=== PATIENT | male | born 1955 | race African-American/Black ===

== ENCOUNTER 2017-05-17 18:27 | Observation (INO) | payer OTHER ==
--- NOTE | 2017-05-17 19:16 | PDOC ---
History of Present Illness - History of Present Illness Initial Comments: 05/17/17 19:39 Patient is a 62M, with PMHx of HTN and gout, who presents with 2 weeks of left shoulder pain. He went to an urgent care for his shoulder pain, the urgent care sent him to the ER after finding him to be hypertensive and did not address his shoulder pain. Patient states that he fell straight down on his left shoulder, after stumbling on a floor board. This past Tuesday, he went to reach for a light switch, and noted that his shoulder pain had worsened. This morning he woke up with a throbbing pain in his left shoulder, rates 9/10. He also experienced a tingling sensation down his arm. He also noted associated nausea and sweating this morning which followed the pain. He denies chest pain. Admits to some SOB earlier in the day. MEDICATIONS: reviewed ALLERGIES: As per nursing notes ROS General: No fevers or chills, no weakness, no weight loss HEENT: No change in vision. No sore throat,. No ear pain CardioVascular: No chest pain. +shortness of breath Respiratory:No cough, or wheezing. Gastrointestinal: +nausea, no vomiting, diarrhea or constipation, No rectal bleeding Genitourinary: No dysuria, hematuria, or frequency Musculoskeletal: +right shoulder pain and tingling Neurologic: No headache, vertigo, dizziness or loss of consciousness Psychiatric: nor depression Skin: No rashes or easy bruising Endocrine: no increased thirst or abnormal weight change Allergic: no skin or latex allergy All other systems reviewed and normal Physical Exam: General: Well-nourished well-developed individual, no acute distress HEENT:Normal, tonsils normal, no erythema or exudate Neck: Supple, no meningeal signs, no lymphadenopathy Eyes:Pupils equal reactive and round, extraocular motion intact Chest: Nontender to palpation Cardiac: S1-S2 normal, regular rate and rhythm, no murmurs rubs or gallops Respiratory: Lungs clear to auscultation bilateral Abdomen: Soft, nondistended, normal bowel sounds, nontender to palpation diffusely Extremities: No bony tenderness, no deformity, no ecchymosis. Tenderness to palpation of anterior shoulder. Neurovascular distal is intact. Decreased ROM, particularly abduction, secondary to pain. Skin: No rashes Neuro: Alert and oriented x3, nonfocal exam, grossly intact, normal gait Psych: Normal mood and affect <Cynthia Richardson - Last Filed: 05/17/17 20:01> - General History Source: Patient Exam Limitations: No Limitations - History of Present Illness Initial Comments: 05/17/17 20:03 A portion of this note was documented by scribe services under my direction. I have reviewed the details of the note, within reason, and agree with the documentation. The case summary and management plan written by me. Medical decision making: This is a 62-year-old male who comes in with 2 complaints his primary complaint is left shoulder pain post fall and injuring the shoulder 2 days ago however in discussion with him regarding his shoulder pain and also came out that he had an episode this morning where he felt nauseous became diaphoretic and had some shortness of breath associated with what he attributed to his shoulder pain. However he does have a history of hypertension so an EKG was obtained. EKG shows normal sinus rhythm at a rate of 60 to a incomplete right bundle branch block some LVH and some flipped T's laterally consistent with lateral ischemia. It is uncertain whether these changes are old or new as we do not have an EKG to compare it to So given his symptoms early will assume they may be new and obtain a workup including CBC, comp, cardiac enzymes, chest x-ray. Patient given Toradol for his pain as well as aspirin Will reassess and review workup 05/17/17 21:03 Assessment and plan: This is a 62-year-old male who comes in with 2 complaints one was that he had an episode of shortness of breath shoulder pain and some nausea and diaphoresis this morning The other complaint was that he fell 2 days ago and has had ongoing shoulder pain. Patient's history was concerning for the shortness of breath shoulder pain nausea and diaphoresis this morning so a workup was initiated. Patient's EKG was normal with some ischemic changes. Patient's troponin was measurable at 0.04 and his heart score is 5. Patient's x-ray was otherwise positive for left shoulder Hill-Sachs type deformity/compression fracture of the humeral head. Patient was given pain medication for that and a sling. Patient's chest x-ray showed no acute pathology. Patient will be admitted to a observation telemetry bed to rule him out. 05/17/17 21:49 Reevaluation the patient as he is complaining of an ALLERGIC reaction with some itching to his mouth and swelling of his lower lip and eye. Patient's lungs are clear at this time there is no angioedema of the oropharynx however he does have some mild lower lip swelling and right periorbital edema. Will medicate with Benadryl and Decadron. Will continue to observe and monitor. <Reji Gauthier I - Last Filed: 05/17/17 21:50> - General Chief Complaint: Blood Pressure Problem Stated Complaint: HYPERTENSION Time Seen by Provider: 05/17/17 19:15 Past History <Cynthia Richardson - Last Filed: 05/17/17 20:01> - Past Medical History COPD: No HTN: Yes - Suicide/Smoking/Psychosocial Hx Smoking History: Never smoked Information on smoking cessation initiated: No Hx Alcohol Use: Yes (SOCIAL) Drug/Substance Use Hx: No Substance Use Type: Alcohol <Reji Gauthier I - Last Filed: 05/17/17 21:50> - Past Medical History Allergies/Adverse Reactions: Allergies Allergy/AdvReac Type Severity Reaction Status Date / Time No Known Allergies Allergy Verified 05/17/17 18:29 Review of Systems - Review of Systems Comments:: 05/17/17 20:01 see HPI <Cynthia Richardson - Last Filed: 05/17/17 20:01> *Physical Exam - Vital Signs Last Vital Signs Temp Pulse Resp BP Pulse Ox 98.3 F 72 16 168/97 100 05/17/17 18:29 05/17/17 18:29 05/17/17 18:29 05/17/17 18:29 05/17/17 18:29 - Physical Exam Comments: 05/17/17 20:01 see HPI <Cynthia Richardson - Last Filed: 05/17/17 20:01> - Vital Signs Last Vital Signs Temp Pulse Resp BP Pulse Ox 98.3 F 72 16 168/97 100 05/17/17 18:29 05/17/17 18:29 05/17/17 18:29 05/17/17 18:29 05/17/17 18:29 <Reji Gauthier I - Last Filed: 05/17/17 21:50> Heart Score/ECG Review - History History: Moderately suspicious - Electrocardiogram EKG: Significant ST-depression - Age Age: 45-65 - Risk Factors Risk Factors Heart Score: Yes Hx Hypertension, Yes Hx Obesity Based on the list above the patient has:: 1-2 risk factors - Troponin Troponin: </= normal limit - Score Heart Score - Total: 5 <Reji Gauthier I - Last Filed: 05/17/17 21:50> ED Treatment Course - Medications Given in the ED: ED Medications Discontinued Medications Generic Name Dose Route Start Last Admin Trade Name Gonzalo PRN Reason Stop Dose Admin Ketorolac Tromethamine 60 mg 05/17/17 19:21 05/17/17 19:27 Toradol Injection - IM 05/17/17 19:22 60 mg ONCE ONE Administration <Cynthia Richardson - Last Filed: 05/17/17 20:01> - LABORATORY CBC & Chemistry Diagram: 05/17/17 20:01 05/17/17 20:01 <Reji Gauthier I - Last Filed: 05/17/17 21:50> *DC/Admit/Observation/Transfer - Attestations Scribe Attestion: 05/17/17 20:01 Documentation prepared by Cynthia Richardson, acting as medical instrument technician for Reji Gauthier MD. <Cynthia Richardson - Last Filed: 05/17/17 20:01> - Discharge Dispostion Admit: Yes <Reji Gauthier I - Last Filed: 05/17/17 21:50> Diagnosis at time of Disposition: Hill-Sachs lesion of left shoulder, Chest pain - Discharge Dispostion Condition at time of disposition: Stable
[2017-05-17] MEDS ORDERED: KETOROLAC TROMETHAMINE 60 MG/2 ML VIAL IM ONE (19:21)
[2017-05-17] MEDS ORDERED: KETOROLAC TROMETHAMINE 60 MG/2 ML VIAL ONE (19:26)
[2017-05-17] MEDS ORDERED: ASPIRIN 81 MG CHEWABLE TABLETS PO ONE (20:01)
[2017-05-17] MEDS ORDERED: ASPIRIN 81 MG CHEWABLE TABLETS ONE (20:04)
[2017-05-17 20:13] LABS: BASO % 3.6 % (0-2.0); EOS % 0.1 % (0-4.5); HEMATOCRIT 42.7 % (35.4-49); HEMOGLOBIN 14.4 GM/dl (11.7-16.9); LYMPH % 14.9 % (8-40); MCH 25.5 pg (25.7-33.7); MCHC 33.6 g/dl (32.0-35.9); MEAN CELL VOLUME 75.8 fl (80-96); MONO % 9.5 % (3.8-10.2); NEUT % 71.9 % (42.8-82.8); PLATELET COUNT 244 K/MM3 (134-434); RBC 5.63 M/mm3 (4.00-5.60); RDW 13.8 % (11.9-15.9); WHITE BLOOD COUNT 9.6 K/mm3 (4.0-10.8)
[2017-05-17 20:26] LABS: ALBUMIN 3.4 g/dl (3.5-5.0); ALK PHOS 70 U/L (32-92); ANION GAP 1 (8-16); BILIRUBIN,TOTAL 1.7 mg/dl (0.2-1.0); BLOOD UREA NITROGEN 17 mg/dl (7-18); CALCIUM 8.5 mg/dl (8.4-10.2); CHLORIDE 103 mmol/L (98-107); CO2 32 mmol/L (22-28); CREATININE 1.5 mg/dl (0.6-1.3); GLUCOSE,RANDOM 117 mg/dl (74-106); POTASSIUM 3.7 mmol/L (3.5-5.1); SGOT/AST 35 U/L (10-42); SGPT/ALT 20 U/L (10-40); SODIUM 136 mmol/L (136-145); TOT PROT 7.8 g/dl (6.4-8.3)
[2017-05-17] MEDS ORDERED: DEXAMETHASONE SOD PHOSPHATE 10 MG/1 ML VIAL IVPUSH ONE (21:49)
[2017-05-17] MEDS ORDERED: DEXAMETHASONE SOD PHOSPHATE 10 MG/1 ML VIAL ONE (21:58)
[2017-05-17 23:45] VITALS: BMI 39.1
[2017-05-18] MEDS ORDERED: ACETAMINOPHEN 325 MG TABLET (FP) PO PRN (00:14)
--- NOTE | 2017-05-18 00:16 | HP ---
CHIEF COMPLAINT: shoulder pain/HTN PCP: Pablo HISTORY OF PRESENT ILLNESS: This is a 62 year old male with past medical history of HTN, gout, prostate CA who presented to the ED with Left shoulder pain for 1.5 weeks since falling last 2 Fridays ago. On Tuesday he reached up to turn on light and felt excrutiating pain. Pain has been severe and persistent since then with worsening this am. This am he had an episode of pain when he became diaphoretic , nauseas and SOB. He presented to urgent care for the pain and they sent him here as his BP was elevated. Pt had possible allergic reaction to ASA vs toradol in ED, tx with benadryl and dexamethasone. ER course was notable for: (1) trop 0.04, CK 470, CK-MB 4.7 (2) shoulder xray with possible compression deformity (3) ECG with flipped Twaves laterally and incomplete RBBB Recent Travel: [place] in April PAST MEDICAL HISTORY: HTN, gout, prostate CA, lumbar disc herniation x 4, LE cellulitis, venous insufficiency s/p vein stripping PAST SURGICAL HISTORY: prostatectomy B/L TKR B/L THR Social History: Smoking: pt denies Alcohol: occ (birthdays and holidays) Drugs: pt denies Family History: mother in her 50s or 60s, cervical CA, h/o ETOH father in his 60s, unk 1 brother s/p prostate CA, prostatectomy sister in her 50s, cervical CA Allergies ketorolac [From Toradol] Allergy (Intermediate, Verified 05/17/17 22:09) Itching HOME MEDICATIONS: allopurinol 200mg daily atenolol 25mg daily nifedipine ER 60mg daily REVIEW OF SYSTEMS CONSTITUTIONAL: Absent: fever, chills, diaphoresis, generalized weakness, malaise, loss of appetite, weight change HEENT: Absent: rhinorrhea, nasal congestion, throat pain, throat swelling, difficulty swallowing, mouth swelling, ear pain, eye pain, visual changes CARDIOVASCULAR: Absent: chest pain, syncope, palpitations, irregular heart rate, lightheadedness , peripheral edema RESPIRATORY: Absent: cough, shortness of breath, dyspnea with exertion, orthopnea, wheezing, stridor, hemoptysis GASTROINTESTINAL: Absent: abdominal pain, abdominal distension, nausea, vomiting, diarrhea, constipation, melena, hematochezia GENITOURINARY: Absent: dysuria, frequency, urgency, hesitancy, hematuria, flank pain, genital pain MUSCULOSKELETAL: Present: L shoulder pain Absent: myalgia, arthralgia, joint swelling, back pain, neck pain SKIN: Absent: rash, itching, pallor HEMATOLOGIC/IMMUNOLOGIC: Absent: easy bleeding, easy bruising, lymphadenopathy, frequent infections ENDOCRINE: Absent: unexplained weight gain, unexplained weight loss, heat intolerance, cold intolerance NEUROLOGIC: Absent: headache, focal weakness or paresthesias, dizziness, unsteady gait, seizure, mental status changes, bladder or bowel incontinence PSYCHIATRIC: Absent: anxiety, depression, suicidal or homicidal ideation, hallucinations. PHYSICAL EXAMINATION Vital Signs - 24 hr 3 05/17/17 05/17/17 05/17/17 18:29 20:11 21:40 Temperature 98.3 F 98.4 F Pulse Rate 72 Pulse Rate [ 69 Right Radial] Respiratory 16 20 Rate Blood Pressure 168/97 Blood Pressure 157/86 [Right Arm] O2 Sat by Pulse 100 98 96 Oximetry (%) 3 05/17/17 05/17/17 05/17/17 21:46 22:26 23:50 Temperature 98.4 F Pulse Rate 70 Pulse Rate [ 80 Right Radial] Respiratory 20 20 Rate Blood Pressure 170/77 Blood Pressure 169/79 [Right Arm] O2 Sat by Pulse 96 96 Oximetry (%) GENERAL: Awake, alert, and fully oriented, in no acute distress. HEAD: Normal with no signs of trauma. EYES: Pupils equal, round and reactive to light, extraocular movements intact, sclera anicteric, conjunctiva clear. No lid lag. upper eyelids noted with mild swelling L>R, left lower lip still with mild swelling. EARS, NOSE, THROAT: Ears normal, nares patent, oropharynx clear without exudates. Moist mucous membranes. NECK: Normal range of motion, supple without lymphadenopathy, JVD, or masses. LUNGS: Breath sounds equal, clear to auscultation bilaterally. No wheezes, and no crackles. No accessory muscle use. HEART: Regular rate and rhythm, normal S1 and S2 without murmur, rub or gallop. ABDOMEN: Soft, nontender, not distended, normoactive bowel sounds, no guarding, no rebound, no masses. No hepatomegaly or splenomegaly. MUSCULOSKELETAL: Normal range of motion at all joints except L shoulder. No bony deformities or tenderness. No CVA tenderness. tenderness left shoulder on palp and ROM UPPER EXTREMITIES: 2+ pulses, warm, well-perfused. No cyanosis. No clubbing. No peripheral edema. LOWER EXTREMITIES: 2+ pulses, warm, well-perfused. No calf tenderness. 1+ peripheral edema bilat, scarring to L lower leg NEUROLOGICAL: Cranial nerves II-XII intact. Normal speech. gait not observed. PSYCHIATRIC: Cooperative. Good eye contact. Appropriate mood and affect. SKIN: Warm, dry, normal turgor, no rashes or lesions noted, normal capillary refill. Laboratory Results - last 24 hr 3 05/17/17 05/17/17 05/17/17 20:01 20:01 20:01 WBC 9.6 D RBC 5.63 H Hgb 14.4 Hct 42.7 MCV 75.8 L MCH 25.5 L MCHC 33.6 RDW 13.8 Plt Count 244 MPV 9.0 D Neutrophils % 71.9 Lymphocytes % 14.9 D Monocytes % 9.5 Eosinophils % 0.1 D Basophils % 3.6 H D Sodium 136 Potassium 3.7 Chloride 103 Carbon Dioxide 32 H Anion Gap 1 L BUN 17 Creatinine 1.5 H Creat Clearance w eGFR 47.27 Random Glucose 117 H D Calcium 8.5 Total Bilirubin 1.7 H D AST 35 D ALT 20 D Alkaline Phosphatase 70 Creatine Kinase 470 H Creatine Kinase Index 1.0 CK-MB (CK-2) 4.7 H Troponin I 0.04 Total Protein 7.8 Albumin 3.4 L ECG normal sinus rhythm vent rate 62, QTC 458 incomplete RBBB LVH T wave inversions lead 1, V5, V6 no old ecg available for comparison Radiology Reports Chest xray-portable- official read pending. no obvious infiltrates, effusions L Shoulder xray- official read pending. As read by ED MD: Hill-Sachs type deformity/compression fracture of the humeral head ASSESSMENT/PLAN: 62yM with PMH HTN, gout, prostate CA, lumbar disc herniation x 4, LE cellulitis , venous insufficiency s/p vein stripping presented to the ED with L shoulder pain. L shoulder pain - ortho consult, Pt orthopedist does not come here - sling to left shoulder when OOB - tylenol for pain ? chest pain equivalent (SOB, diaphoresis) - likely pain response - given ECG changes and no old ecg availabe for comparison will admit overnight for observation - trend troponin HTN - cont home meds, increase dose if persistently elevated when pain controlled gout - cont allopurinol DVT PPX - deferred, anticipated LOS < 48h FEN - tolerating po - BMP in am - low sodium, low fat diet Dispo: pt currently requires further observation. Visit type - Emergency Visit Emergency Visit: Yes ED Registration Date: 05/17/17 Care time: The patient presented to the Emergency Department on the above date and was hospitalized for further evaluation of their emergent condition. - New Patient This patient is new to me today: Yes Date on this admission: 05/17/17 - Critical Care Critical Care patient: No Hospitalist Screening - Colonoscopy Questionnaire Colonoscopy Questionnaire: Colonoscopy Questionnaire - Patient: 50 - 75 years old and never had a screening colonoscopy: No History of colon or rectal polyps, or CA: No History of IBD, Crohn's disease or UC: No History of abdominal radiation therapy as a child: No - Relative: 1 with colon or rectal CA, or polyps at age 60 or younger: No Colon or rectal CA diagnosed at age 45 or younger: No Multiple relatives with colon or rectal CA: No - Outcome: Screening Result: Negative Screen
[2017-05-18 09:02] LABS: MEAN PLT VOLUME 9.5 fl (7.5-11.1)
[2017-05-18 09:18] LABS: HEMATOCRIT 40.3 % (35.4-49); HEMOGLOBIN 13.3 GM/dl (11.7-16.9); MCHC 33.1 g/dl (32.0-35.9); MEAN CELL VOLUME 75.6 fl (80-96); MONO % 5.1 % (3.8-10.2); NEUT % 87.9 % (42.8-82.8); PLATELET COUNT 252 K/MM3 (134-434); RBC 5.33 M/mm3 (4.00-5.60); RDW 13.7 % (11.9-15.9)
[2017-05-18 09:54] LABS: ANION GAP 7 (8-16); BLOOD UREA NITROGEN 22 mg/dL (7-18); CALCIUM 8.5 mg/dL (8.5-10.1); CHLORIDE 103 mmol/L (98-107); CO2 30 mmol/L (21-32); GLUCOSE,RANDOM 145 mg/dL (74-106); POTASSIUM 3.4 mmol/L (3.5-5.1); SODIUM 140 mmol/L (136-145)
[2017-05-18 09:59] LABS: CREATININE 1.7 mg/dL (0.7-1.3); MAGNESIUM 1.8 mg/dL (1.8-2.4); PHOSPHOROUS 2.5 mg/dL (2.5-4.9)
[2017-05-18] MEDS ORDERED: ATENOLOL 25 MG TABLET (FP) PO SCH (10:00)
[2017-05-18] MEDS ORDERED: ALLOPURINOL 100 MG TABLET (FP) PO SCH (10:00)
[2017-05-18] MEDS ORDERED: NIFEdipine E.R 60 MG TABLET (UD) PO SCH (10:00)
--- NOTE | 2017-05-18 10:10 | CONSULT ---
Consult Consult Specialty:: orthopedics - History of Present Illness Chief Complaint: left shoulder pain History of Present Illness: 62y/o male c/o left shoulder pain which began about 2 weeks ago after he fell and landed directly on the left shoulder. He has some mild pain but was able to use the shoulder normally. Over the past week he has had some increase in pain after he was doing so overhead work with the left shoulder. He continues to have pain with overhead movements and at night if he lies on the shoulder. He denies any numbness or tingling. There are no other associated, aggravating or relieving factors. - Alcohol/Substance Use Hx Alcohol Use: Yes (SOCIAL) - Smoking History Smoking history: Never smoked Have you smoked in the past 12 months: No Home Medications - Allergies Allergies/Adverse Reactions: Allergies Allergy/AdvReac Type Severity Reaction Status Date / Time ketorolac [From Toradol] Allergy Intermediate Itching Verified 05/17/17 22:09 Review of Systems - Review of Systems Constitutional: reports: No Symptoms Eyes: reports: No Symptoms HENT: reports: No Symptoms Neck: reports: No Symptoms Cardiovascular: reports: No Symptoms Respiratory: reports: No Symptoms Gastrointestinal: reports: No Symptoms Genitourinary: reports: No Symptoms, Testicular Pain Musculoskeletal: reports: Extremity Pain Integumentary: reports: No Symptoms Neurological: reports: No Symptoms Endocrine: reports: No Symptoms Hematology/Lymphatic: reports: No Symptoms Psychiatric: reports: No Symptoms Physical Exam Vital Signs: Vital Signs Temperature 98.7 F 05/18/17 06:48 Pulse Rate 69 05/18/17 06:48 Respiratory Rate 18 05/18/17 08:35 Blood Pressure 152/83 05/18/17 06:48 O2 Sat by Pulse Oximetry (%) 97 05/18/17 08:35 Constitutional: Yes: Well Nourished, No Distress, Calm HENT: Yes: Atraumatic, Normocephalic Musculoskeletal: Yes: Other Labs: CBC, BMP 05/18/17 07:55 05/18/17 07:55 Imaging - Results X-ray: Report Reviewed, Image Reviewed (No fracture of shoulder. No dislocation) Assessment/Plan #1 Left shoulder sprain/impingement -Recommend course of NSAIDs such as naproxen 500mg BID for 7-10 days. Pt states he tolerates NSAIDs well. -Also recommend outpatient PT for left shoulder -Follow up as outpatient in 1-2 weeks
--- NOTE | 2017-05-18 10:55 | EKG ---
Test Reason : Blood Pressure : / mmHG Vent. Rate : 062 BPM Atrial Rate : 062 BPM P-R Int : 202 ms QRS Dur : 114 ms QT Int : 452 ms P-R-T Axes : 055 -19 119 degrees QTc Int : 458 ms NORMAL SINUS RHYTHM POSSIBLE LEFT ATRIAL ENLARGEMENT INCOMPLETE RIGHT BUNDLE BRANCH BLOCK LEFT VENTRICULAR HYPERTROPHY CANNOT RULE OUT SEPTAL INFARCT , AGE UNDETERMINED T WAVE ABNORMALITY, CONSIDER LATERAL ISCHEMIA ABNORMAL ECG NO PREVIOUS ECGS AVAILABLE Confirmed by YULIANA SEPULVEDA, LAZARUS ([id number]) on 05/18/2017 10:54:54 AM Referred By: DR CELIS Confirmed By:LAZARUS BRIDGES MD
[2017-05-18] MEDS ORDERED: MAGNESIUM SULF 50% (8.12 MEQ/2 ML-1 GM VIAL) IVPB ONE (11:23)
[2017-05-18] MEDS ORDERED: MAGNESIUM 1GM/D5W - 1 GM/100 ML IVPB IVPB ONE (11:45)
[2017-05-18] MEDS ORDERED: POTASSIUM CHLORIDE TABS 20 MEQ TABLET.ER (FP) PO ONE (11:51)
--- NOTE | 2017-05-18 11:54 | DS ---
Physical Exam: SUBJECTIVE: Patient seen and examined, denies any chest pain or shortness of breath, reports minimal pain to the left shoulder upon movement. OBJECTIVE: Patient is a 62y/o male with PMH HTN, gout, prostate CA, lumbar disc herniation x 4, LE cellulitis, venous insufficiency s/p vein stripping, reports left shoulder pain for 1.5 weeks since falling last 2 Fridays ago. On Tuesday he reached up to turn on light and felt excrutiating pain. Pain has been severe and persistent since then with worsening this am. This am he had an episode of pain when he became diaphoretic, nauseas and SOB. He presented to urgent care for the pain and they sent him here as his BP was elevated. Pt had possible allergic reaction to ASA vs toradol in ED, tx with benadryl and dexamethasone. ER course was notable for: (1) trop 0.04, CK 470, CK-MB 4.7 (2) shoulder xray with possible compression deformity (3) ECG with flipped Twaves laterally and incomplete RBBB Vital Signs Period Temp Pulse Resp BP Sys/Malik Pulse Ox Last 24 Hr 98.3 F-98.7 F 69-80 16-20 152-170/77-97 96-100 PHYSICAL EXAM GENERAL: The patient is awake, alert, and fully oriented, in no acute distress. HEAD: Normal with no signs of trauma. EYES: PERRL, extraocular movements intact, sclera anicteric, conjunctiva clear. ENT: Ears normal, nares patent, oropharynx clear without exudates, moist mucous membranes. NECK: Trachea midline, full range of motion, supple. LUNGS: Breath sounds equal, clear to auscultation bilaterally, no wheezes, no crackles, no accessory muscle use. HEART: Regular rate and rhythm, S1, S2 without murmur, rub or gallop. ABDOMEN: Soft, nontender, nondistended, normoactive bowel sounds, no guarding, no rebound, no hepatosplenomegaly, no masses. EXTREMITIES: 2+ pulses, warm, well-perfused, no edema. pain to the left anterior shoulder upon movement NEUROLOGICAL: Cranial nerves II through XII grossly intact. Normal speech, gait not observed. PSYCH: Normal mood, normal affect. SKIN: Warm, dry, normal turgor, no rashes or lesions noted. LABS Laboratory Results - last 24 hr 05/17/17 05/17/17 05/17/17 20:01 20:01 20:01 WBC 9.6 D RBC 5.63 H Hgb 14.4 Hct 42.7 MCV 75.8 L MCH 25.5 L MCHC 33.6 RDW 13.8 Plt Count 244 MPV 9.0 D Neutrophils % 71.9 Lymphocytes % 14.9 D Monocytes % 9.5 Eosinophils % 0.1 D Basophils % 3.6 H D Sodium 136 Potassium 3.7 Chloride 103 Carbon Dioxide 32 H Anion Gap 1 L BUN 17 Creatinine 1.5 H Creat Clearance w eGFR 47.27 Random Glucose 117 H D Calcium 8.5 Phosphorus Magnesium Total Bilirubin 1.7 H D AST 35 D ALT 20 D Alkaline Phosphatase 70 Creatine Kinase Creatine Kinase Index CK-MB (CK-2) Troponin I 0.04 Total Protein 7.8 Albumin 3.4 L 05/17/17 05/18/17 05/18/17 20:01 02:00 07:55 WBC 7.0 RBC 5.33 Hgb 13.3 Hct 40.3 MCV 75.6 L MCH 25.0 L MCHC 33.1 RDW 13.7 Plt Count 252 MPV 9.5 Neutrophils % 87.9 H D Lymphocytes % 7.0 L D Monocytes % 5.1 Eosinophils % 0.0 D Basophils % 0.0 Sodium Potassium Chloride Carbon Dioxide Anion Gap BUN Creatinine Creat Clearance w eGFR Random Glucose Calcium Phosphorus Magnesium Total Bilirubin AST ALT Alkaline Phosphatase Creatine Kinase 470 H 363 H Creatine Kinase Index 1.0 0.8 CK-MB (CK-2) 4.7 H 3.224 Troponin I 0.04 Total Protein Albumin 05/18/17 05/18/17 07:55 07:55 WBC RBC Hgb Hct MCV MCH MCHC RDW Plt Count MPV Neutrophils % Lymphocytes % Monocytes % Eosinophils % Basophils % Sodium 140 Potassium 3.4 L Chloride 103 Carbon Dioxide 30 Anion Gap 7 L BUN 22 H Creatinine 1.7 H Creat Clearance w eGFR Random Glucose 145 H Calcium 8.5 Phosphorus 2.5 Magnesium 1.8 Total Bilirubin AST ALT Alkaline Phosphatase Creatine Kinase 299 Creatine Kinase Index CK-MB (CK-2) Troponin I 0.03 Total Protein Albumin ECG normal sinus rhythm vent rate 62, QTC 458 incomplete RBBB LVH T wave inversions lead 1, V5, V6 no old ecg available for comparison Radiology Reports Chest xray-portable no acute pathology, no infiltrates or effusions L Shoulder xray- no acute pathology. HOSPITAL COURSE: Patient was admitted to observation from the emergency department for chest pain r/o acs. no events noted on telemetry, troponin x 3 wnl. patient reports pain is localized to left shoulder only that worsens upon movement. Patient has a past medical history of hypertension, b/p remained at goal with atenolol and procardia. orthopedist was consulted, patient will require outpatient follow up. PLAN - discharge home with follow up with Dr Shah within 1 week - follow up with the orthopedist within 2 weeks Date of Admission:05/17/17 Date of Discharge: 05/18/17 Minutes to complete discharge: 45 Discharge Summary Reason For Visit: HYPERTENSION Current Active Problems Chest pain (Acute) Hill-Sachs lesion of left shoulder (Acute) Condition: Stable - Instructions
[2017-05-18 13:29] VITALS: BP 118/65; PULSE 76; TEMP 98.1
[2017-05-18 13:49] LABS: LIPASE 78 U/L (73-393)
[2017-05-18 17:06] LABS: CHOLESTEROL 202 mg/dL (50-200); LDL CHOLESTEROL (ONLY SJRH) 127 mg/dL (5-100); TRIGLYCERIDES 51 mg/dL (35-160)
[2017-05-18 17:07] LABS: HDL CHOLESTEROL 65 mg/dL (40-60)
== END 2017-05-18 16:38 | disposition home or self-care (01) ==
LOC: FER 18:27 → FM/S 22:26
PROVIDERS: ADMIT Internal Medicine; ATTEND Nurse Practitioner Family
PROC: 3E0333Z Introduction of Anti-inflammatory into Peripheral Vein, Percutaneous Approach (ICD-10-PCS; principal; 2017-05-17)
PROC: 3E033GC Introduction of Other Therapeutic Substance into Peripheral Vein, Percutaneous Approach (ICD-10-PCS; 2017-05-17)
DX: M25.512 Pain in left shoulder (principal); R07.9 Chest pain, unspecified; M24.412 Recurrent dislocation, left shoulder; I10 Essential (primary) hypertension; R06.02 Shortness of breath; M10.9 Gout, unspecified; Z85.46 Personal history of malignant neoplasm of prostate
CPT/HCPCS: 36415; 71045-TC-FY; 73030-TC-LT-FY; 80048; 80053; 80061; 82550; 82553; 83690; 83721; 83735; 84100; 84484; 85025; 93005; 99285-25; G0378; J1100

== ENCOUNTER 2021-08-20 04:07 | Day surgery (SDC) | payer BC, OTHER ==
[2021-08-17 15:08] VITALS: BMI 39.2
[2021-08-20] MEDS ORDERED: LIDOCAINE HCL 1%, 10 MG/ML (20ML VIAL) ONE (08:55)
[2021-08-20] MEDS ORDERED: HEPARIN NA (PORCINE) 5,000 UNITS/ML 1ML VIAL ONE (08:55)
[2021-08-20] MEDS ORDERED: BUPIVACAINE HCL/PF 0.25% (2.5MG/ML) 10 ML VIAL ONE (09:00)
[2021-08-20] MEDS ORDERED: BUPIVACAINE HCL/PF 0.75% 10 ML VIAL ONE (09:01)
[2021-08-20] MEDS ORDERED: MIDAZOLAM HCL 2 MG/2 ML SINGLE DOSE VIAL ONE ×2 (09:05)
[2021-08-20] MEDS ORDERED: DEXMEDETOMIDINE HCL 200 MCG/2 ML IVPB ONE (09:37)
[2021-08-20] MEDS ORDERED: ceFAZolin SODIUM 1 GM VIAL IVPB ONE (09:56)
[2021-08-20] MEDS ORDERED: LIDOCAINE HCL 1%, 10 MG/ML (50 mL VIAL) INF ONE (09:59)
[2021-08-20] MEDS ORDERED: oxyCODONE HCL 5 MG TABLET PO PRN ×2 (14:00)
[2021-08-20] MEDS ORDERED: oxyCODONE HCL 5 MG TABLET ONE ×2 (14:05)
[2021-08-20 15:11] VITALS: TEMP 97.5
[2021-08-20 15:20] VITALS: BP 131/74; PULSE 64
== END 2021-08-20 14:50 | disposition home or self-care (01) ==
LOC: JASU-SURG 04:07
PROVIDERS: ATTEND Surgery Vascular Surgery
PROC: 031C0ZF Bypass Left Radial Artery to Lower Arm Vein, Open Approach (ICD-10-PCS; principal; 2021-08-20 10:00)
DX: I12.0 Hypertensive chronic kidney disease with stage 5 chronic kidney disease or end stage renal disease (principal); N18.6 End stage renal disease
CPT/HCPCS: 36415; 71045-TC-FY; 76000-TC-FY; 86704; 86705; 86803; 87340; 87517; 94760; J1644

== ENCOUNTER 2021-09-07 16:17 | Observation (INO) | payer BC, OTHER ==
[2021-09-07 20:17] LABS: CHLORIDE 107 mmol/L (98-107); SODIUM 143 mmol/L (136-145)
[2021-09-07 20:19] LABS: CALCIUM 8.8 mg/dL (8.5-10.1)
[2021-09-07 20:20] LABS: ALBUMIN 3.1 g/dl (3.4-5.0); ANION GAP 10 MMOL/L (8-16); BLOOD UREA NITROGEN 71.6 mg/dL (7-18); CO2 26 mmol/L (21-32); GLUCOSE,RANDOM 100 mg/dL (74-106)
[2021-09-07 20:23] LABS: SGOT/AST 12 U/L (15-37); SGPT/ALT 8 U/L (13-61)
[2021-09-07 20:25] LABS: BILIRUBIN,TOTAL 0.3 mg/dL (0.2-1)
[2021-09-07 20:26] LABS: ALK PHOS 80 U/L (45-117)
[2021-09-07 20:32] LABS: CREATININE 8.2 mg/dL (0.55-1.3)
[2021-09-07] MEDS ORDERED: HEPARIN NA (PORCINE) 5,000 UNITS/ML 1ML VIAL IVPUSH PRN ×2 (20:36)
[2021-09-07 20:39] LABS: BASO % 1.2 % (0-2.0); HEMATOCRIT 26.3 % (35.4-49); HEMOGLOBIN 8.6 GM/dL (11.7-16.9); LYMPH % 14.9 % (8-40); MCH 24.2 pg (25.7-33.7); MCHC 32.6 g/dl (32.0-35.9); MONO % 7.8 % (3.8-10.2); NEUT % 69.1 % (42.8-82.8); PLATELET COUNT 347 10^3/uL (134-434); RBC 3.55 M/mm3 (4.00-5.60); WHITE BLOOD COUNT 7.3 K/mm3 (4.0-10.0)
[2021-09-07] MEDS ORDERED: HEPARIN INFUSION - 25,000 UNITS/500 ML INFUS.BAG IVPB ONE (20:48)
[2021-09-07 21:08] LABS: INR 1.09 (0.83-1.09); PROTHROMBIN TIME (PATIENT) 12.6 SEC (9.7-13.0)
[2021-09-07 21:11] LABS: ACTIVATED PTT 33.1 SECONDS (25.2-36.5)
[2021-09-07] MEDS: HEPARIN SOD,PORK IN 0.45% NACL 25,000 UNITS/500 ML INFUS.BAG IVPB SCH (21:11)
[2021-09-08] MEDS ORDERED: ACETAMINOPHEN 1000 MG/100 ML BAG IVPB PRN (00:17)
[2021-09-08] MEDS ORDERED: hydrALAZINE HCL 20 MG/ML VIAL IVPUSH ONE ×2 (00:20→06:45)
[2021-09-08] MEDS ORDERED: hydrALAZINE HCL 20 MG/ML VIAL ONE (00:38)
[2021-09-08] MEDS: ALLOPURINOL 100 MG TABLET (FP) PO SCH ×2 (01:34→10:48)
[2021-09-08 07:18] LABS: INR 1.13 (0.83-1.09)
[2021-09-08 07:31] LABS: CHLORIDE 106 mmol/L (98-107); SODIUM 142 mmol/L (136-145)
[2021-09-08 07:39] LABS: ALBUMIN 2.9 g/dl (3.4-5.0); ANION GAP 11 MMOL/L (8-16); BLOOD UREA NITROGEN 66.5 mg/dL (7-18); CALCIUM 8.5 mg/dL (8.5-10.1); CO2 25 mmol/L (21-32); GLUCOSE,RANDOM 86 mg/dL (74-106); MAGNESIUM 2.2 mg/dL (1.8-2.4)
[2021-09-08 07:42] LABS: PHOSPHOROUS 5.4 mg/dL (2.5-4.9); SGOT/AST 13 U/L (15-37); SGPT/ALT 8 U/L (13-61)
[2021-09-08 07:43] LABS: BILIRUBIN,TOTAL 0.4 mg/dL (0.2-1); LDH 232 U/L (87-246)
[2021-09-08 07:44] LABS: TOT PROT 7.7 g/dl (6.4-8.2)
[2021-09-08 07:45] LABS: ALK PHOS 72 U/L (45-117)
[2021-09-08 07:46] LABS: CREATININE 8.1 mg/dL (0.55-1.3)
[2021-09-08] MEDS ORDERED: NIFEdipine E.R 60 MG TABLET PO SCH (10:00)
[2021-09-08 10:09] LABS: BASO % 1.3 % (0-2.0); EOS % 5.9 % (0-4.5); HEMATOCRIT 22.7 % (35.4-49); HEMOGLOBIN 7.4 GM/dL (11.7-16.9); LYMPH % 13.2 % (8-40); MCH 24.1 pg (25.7-33.7); MCHC 32.8 g/dl (32.0-35.9); MEAN CELL VOLUME 73.3 fl (80-96); MEAN PLT VOLUME 8.5 fl (7.5-11.1); MONO % 5.5 % (3.8-10.2); NEUT % 74.1 % (42.8-82.8); PLATELET COUNT 344 10^3/uL (134-434); RBC 3.09 M/mm3 (4.00-5.60); RDW 15.7 % (11.9-15.9); WHITE BLOOD COUNT 7.5 K/mm3 (4.0-10.0)
[2021-09-08] MEDS: TORSEMIDE 20 MG TABLET (FP) PO SCH (10:47)
[2021-09-08] MEDS: ATENOLOL 25 MG TABLET (FP) PO SCH (10:48)
[2021-09-08] MEDS: PANTOPRAZOLE SODIUM 40 MG VIAL IVPUSH SCH (10:48)
[2021-09-08] MEDS: NIFEdipine E.R. 90 MG TABLET PO SCH (10:50)
[2021-09-08 12:15] VITALS: BMI 37.5
[2021-09-08 12:39] LABS: EPI CELLS 6 /uL (0-25.1); HYALINE CASTS 0 /uL (0-3.1); PH,URINE 7.5 (5.0-8.0); URINE APPEARANCE CLEAR; URINE BACTERIA 11 /uL (0-1359); URINE BILIRUBIN NEGATIVE (NEGATIVE); URINE COLOR YELLOW; URINE GLUCOSE (UA) NEGATIVE (NEGATIVE); URINE KETONE NEGATIVE (NEGATIVE); URINE LEUK ESTERASE NEGATIVE (NEGATIVE); URINE NITRITE NEGATIVE (NEGATIVE); URINE PROTEIN 3+ (NEGATIVE); URINE RBC 5 /uL (0-23.9); URINE UROBILINOGEN 0.2 mg/dL (0.2-1.0); URINE WBC 18 /uL (0-25.8)
[2021-09-08] MEDS ORDERED: hydrALAZINE HCL 20 MG/ML VIAL IVPUSH PRN (14:46)
[2021-09-08] MEDS: amLODIPine BESYLATE 10 MG TABLET (FP) PO SCH (15:14)
[2021-09-08 23:49] VITALS: RESP 18
[2021-09-09] MEDS: HEPARIN SOD,PORK IN 0.45% NACL 25,000 UNITS/500 ML INFUS.BAG IVPB SCH (00:20)
[2021-09-09 08:10] LABS: HEMATOCRIT 22.8 % (35.4-49); HEMOGLOBIN 7.6 GM/dL (11.7-16.9); MCH 24.3 pg (25.7-33.7); MCHC 33.1 g/dl (32.0-35.9); MEAN CELL VOLUME 73.2 fl (80-96); MEAN PLT VOLUME 7.6 fl (7.5-11.1); PLATELET COUNT 305 10^3/uL (134-434); RBC 3.11 M/mm3 (4.00-5.60); RDW 15.8 % (11.9-15.9); WHITE BLOOD COUNT 6.1 K/mm3 (4.0-10.0)
[2021-09-09 08:32] LABS: CHLORIDE 105 mmol/L (98-107); SODIUM 140 mmol/L (136-145)
[2021-09-09 08:36] LABS: CALCIUM 8.2 mg/dL (8.5-10.1)
[2021-09-09 08:37] LABS: ANION GAP 12 MMOL/L (8-16); BLOOD UREA NITROGEN 63.7 mg/dL (7-18); CO2 24 mmol/L (21-32); GLUCOSE,RANDOM 92 mg/dL (74-106)
[2021-09-09 08:41] LABS: CREATININE 7.7 mg/dL (0.55-1.3)
[2021-09-09 09:22] VITALS: BP 154/94; PULSE 61; TEMP 98.5
[2021-09-09] MEDS: ALLOPURINOL 100 MG TABLET (FP) PO SCH (09:22)
[2021-09-09] MEDS: TORSEMIDE 20 MG TABLET (FP) PO SCH (09:22)
[2021-09-09] MEDS: amLODIPine BESYLATE 10 MG TABLET (FP) PO SCH (09:23)
[2021-09-09] MEDS: ATENOLOL 25 MG TABLET (FP) PO SCH (09:23)
[2021-09-09] MEDS: PANTOPRAZOLE SODIUM 40 MG VIAL IVPUSH SCH (09:23)
[2021-09-09] MEDS: NIFEdipine E.R. 90 MG TABLET PO SCH (09:23)
== END 2021-09-09 14:05 | disposition home or self-care (01) ==
LOC: JER 16:17 → INTOOBSV 22:27 → UNDOADMOB 22:27 → JERBED 22:27 → OBSVTOIN 09-08 00:10 → INTOOBSV 09-08 00:10 → J4S 09-08 06:02 → JERBED 09-08 06:02 → J4S 09-09 08:51 → JERBED 09-09 08:51
PROVIDERS: ADMIT Internal Medicine
PROC: 3E033GC Introduction of Other Therapeutic Substance into Peripheral Vein, Percutaneous Approach (ICD-10-PCS; principal; 2021-09-09)
DX: I12.0 Hypertensive chronic kidney disease with stage 5 chronic kidney disease or end stage renal disease (principal); N18.5 Chronic kidney disease, stage 5; Z99.2 Dependence on renal dialysis; M10.9 Gout, unspecified; C61 Malignant neoplasm of prostate; I82.C11 Acute embolism and thrombosis of right internal jugular vein; D50.9 Iron deficiency anemia, unspecified; G47.33 Obstructive sleep apnea (adult) (pediatric); E66.9 Obesity, unspecified; I44.7 Left bundle-branch block, unspecified; M51.26 Other intervertebral disc displacement, lumbar region; Z88.6 Allergy status to analgesic agent; Z96.643 Presence of artificial hip joint, bilateral; Z96.653 Presence of artificial knee joint, bilateral; Z29.8 Encounter for other specified prophylactic measures; Z95.828 Presence of other vascular implants and grafts
CPT/HCPCS: 36415; 80048; 80053; 81003; 82728; 83010; 83540; 83550; 83615; 83735; 84100; 85025; 85027; 85045; 85610; 85730; 93005; 93010; 96375; 96376; 99285-25; C9803-CS; G0378; J1644; U0003; U0005

== ENCOUNTER 2021-10-08 04:16 | Day surgery (SDC) | payer BC, OTHER ==
[2021-10-07 11:11] VITALS: BMI 25.7
[2021-10-08] MEDS ORDERED: LIDOCAINE HCL 1%, 10 MG/ML (20ML VIAL) ONE (10:42)
[2021-10-08] MEDS ORDERED: HEPARIN NA (PORCINE) 5,000 UNITS/ML 1ML VIAL ONE (10:42)
[2021-10-08] MEDS ORDERED: KETAMINE HCL 200 MG/20 ML VIAL ONE (10:44)
[2021-10-08] MEDS ORDERED: ceFAZolin SODIUM 1 GM VIAL ONE (10:44)
[2021-10-08 10:51] LABS: HEMATOCRIT 29.1 % (35.4-49); HEMOGLOBIN 9.8 GM/dL (11.7-16.9); MCH 25.9 pg (25.7-33.7); MCHC 33.8 g/dl (32.0-35.9); MEAN CELL VOLUME 76.6 fl (80-96); MEAN PLT VOLUME 8.3 fl (7.5-11.1); PLATELET COUNT 246 10^3/uL (134-434); RBC 3.79 M/mm3 (4.00-5.60); RDW 18.4 % (11.9-15.9); WHITE BLOOD COUNT 5.1 K/mm3 (4.0-10.0)
[2021-10-08 11:00] LABS: INR 1.11 (0.83-1.09); PROTHROMBIN TIME (PATIENT) 12.8 SEC (9.7-13.0)
[2021-10-08 11:12] LABS: BLOOD UREA NITROGEN 25.5 mg/dL (7-18); CALCIUM 8.7 mg/dL (8.5-10.1)
[2021-10-08 11:13] LABS: ALBUMIN 3.1 g/dl (3.4-5.0)
[2021-10-08 11:16] LABS: CREATININE 5.5 mg/dL (0.55-1.3)
[2021-10-08 11:17] LABS: BILIRUBIN,TOTAL 0.5 mg/dL (0.2-1); TOT PROT 7.1 g/dl (6.4-8.2)
[2021-10-08] MEDS ORDERED: MIDAZOLAM HCL 2 MG/2 ML SINGLE DOSE VIAL ONE ×2 (11:37→11:38)
[2021-10-08] MEDS ORDERED: PROPOFOL 100 ML ONE (11:37)
[2021-10-08] MEDS ORDERED: SUCCINYLCHOLINE CHLORIDE 200 MG/10 ML SYRINGE ONE (11:42)
[2021-10-08] MEDS ORDERED: ceFAZolin SODIUM 1 GM VIAL IVPB ONE (11:49)
[2021-10-08] MEDS ORDERED: LIDOCAINE HCL 1%, 10 MG/ML (20ML VIAL) SQ ONE ×2 (11:55)
[2021-10-08] MEDS ORDERED: oxyCODONE HCL 5 MG TABLET PO PRN (12:27)
[2021-10-08] MEDS ORDERED: PROMETHAZINE HCL 25 MG/1 ML VIAL IVPUSH PRN (12:27)
[2021-10-08] MEDS ORDERED: ONDANSETRON 4 MG/2 ML VIAL IVPUSH PRN (12:27)
[2021-10-08 14:13] VITALS: RESP 18
[2021-10-08 14:47] VITALS: BP 143/64; PULSE 60; TEMP 97.3
== END 2021-10-08 14:45 | disposition home or self-care (01) ==
LOC: JASU-SURG 04:16
PROVIDERS: ATTEND Surgery Vascular Surgery
PROC: 057Y3ZZ Dilation of Upper Vein, Percutaneous Approach (ICD-10-PCS; principal; 2021-10-08 11:55)
DX: I12.0 Hypertensive chronic kidney disease with stage 5 chronic kidney disease or end stage renal disease (principal); N18.6 End stage renal disease; Z99.2 Dependence on renal dialysis
CPT/HCPCS: 36415; 76000-TC-FY; 80053; 85027; 85610; 94760; J1644

== ENCOUNTER 2021-11-12 04:07 | Day surgery (SDC) | payer BC ==
[2021-11-10 17:37] VITALS: BMI 35.9
[2021-11-12] MEDS ORDERED: LIDOCAINE HCL 1%, 10 MG/ML (20ML VIAL) ONE (07:30)
[2021-11-12] MEDS ORDERED: HEPARIN NA (PORCINE) 5,000 UNITS/ML 1ML VIAL ONE ×2 (07:30→09:14)
[2021-11-12] MEDS ORDERED: MIDAZOLAM HCL 2 MG/2 ML SINGLE DOSE VIAL ONE (08:14)
[2021-11-12] MEDS ORDERED: PROPOFOL 20 ML ONE (08:14)
[2021-11-12] MEDS ORDERED: ONDANSETRON 4 MG/2 ML VIAL IVPUSH PRN (08:28)
[2021-11-12] MEDS ORDERED: oxyCODONE HCL 5 MG TABLET PO PRN ×2 (08:28)
[2021-11-12] MEDS ORDERED: SODIUM CHLORIDE 1,000 ML IV SCH (08:30)
[2021-11-12] MEDS ORDERED: ceFAZolin SODIUM 1 GM VIAL ONE (09:01)
[2021-11-12] MEDS ORDERED: ceFAZolin SODIUM 1 GM VIAL IVPB ONE (09:02)
[2021-11-12] MEDS ORDERED: LIDOCAINE HCL 1%, 10 MG/ML (50 mL VIAL) INF ONE (09:10)
[2021-11-12 10:57] VITALS: BP 148/73; PULSE 68; RESP 18; TEMP 97.5
== END 2021-11-12 11:16 | disposition home or self-care (01) ==
LOC: JASU-SURG 04:07
PROVIDERS: ATTEND Surgery Vascular Surgery
PROC: 037Y3ZZ Dilation of Upper Artery, Percutaneous Approach (ICD-10-PCS; principal; 2021-11-12 09:00)
DX: T82.898A Other specified complication of vascular prosthetic devices, implants and grafts, initial encounter (principal); I12.0 Hypertensive chronic kidney disease with stage 5 chronic kidney disease or end stage renal disease; N18.6 End stage renal disease; Z99.2 Dependence on renal dialysis
CPT/HCPCS: 36415; 76000-TC-FY; 84132; 94760; J1644

== ENCOUNTER 2021-11-24 04:35 | Day surgery (SDC) | payer BC ==
[2021-11-23 13:27] VITALS: BMI 35.9
[2021-11-24] MEDS ORDERED: BUPIVACAINE HCL/PF 0.75% 10 ML VIAL ONE (11:12)
[2021-11-24] MEDS ORDERED: LIDOCAINE HCL/PF 1% SDV 5ML VIAL ONE (11:12)
[2021-11-24] MEDS ORDERED: BUPIVACAINE HCL/PF 0.75% 10 ML VIAL NR ONE ×2 (12:19→12:20)
[2021-11-24] MEDS ORDERED: LIDOCAINE 1% P/F 10 MG/ML VIAL INF ONE ×2 (12:19→12:20)
[2021-11-24 12:54] VITALS: BP 138/70; PULSE 53; RESP 20; TEMP 97.7
== END 2021-11-24 13:09 | disposition home or self-care (01) ==
LOC: JASU-SURG 04:35
PROVIDERS: ATTEND Pain Medicine Pain Medicine
PROC: BR16YZZ Fluoroscopy of Lumbar Facet Joint(s) using Other Contrast (ICD-10-PCS; 2021-11-24)
PROC: 3E0T3BZ Introduction of Anesthetic Agent into Peripheral Nerves and Plexi, Percutaneous Approach (ICD-10-PCS; principal; 2021-11-24 12:00)
DX: M47.816 Spondylosis without myelopathy or radiculopathy, lumbar region (principal)
CPT/HCPCS: 76000-TC-FY

== ENCOUNTER 2022-01-08 12:22 | Inpatient (IN) | payer BC, OTHER ==
[2022-01-08 12:57] VITALS: BMI 36.6
[2022-01-08 14:06] LABS: HEMOGLOBIN 15.1 GM/dL (11.7-16.9); MCH 26.3 pg (25.7-33.7); MCHC 32.8 g/dl (32.0-35.9); MEAN CELL VOLUME 80.2 fl (80-96); PLATELET COUNT 252 10^3/uL (134-434); RBC 5.74 M/mm3 (4.00-5.60); RDW 17.2 % (11.9-15.9); WHITE BLOOD COUNT 5.6 K/mm3 (4.0-10.0)
[2022-01-08 14:10] LABS: INR 1.03 (0.83-1.09); PROTHROMBIN TIME (PATIENT) 11.8 SEC (9.7-13.0)
[2022-01-08 14:12] LABS: ACTIVATED PTT 32.2 SECONDS (25.2-36.5)
[2022-01-08 14:22] LABS: CHLORIDE 105 mmol/L (98-107); SODIUM 141 mmol/L (136-145)
[2022-01-08 14:24] LABS: CALCIUM 9.5 mg/dL (8.5-10.1)
[2022-01-08 14:25] LABS: ALBUMIN 3.4 g/dl (3.4-5.0); ANION GAP 12 MMOL/L (8-16); CO2 24 mmol/L (21-32); GLUCOSE,RANDOM 97 mg/dL (74-106)
[2022-01-08 14:28] LABS: SGOT/AST 9 U/L (15-37); SGPT/ALT 12 U/L (13-61)
[2022-01-08 14:29] LABS: BILIRUBIN,TOTAL 0.4 mg/dL (0.2-1)
[2022-01-08 14:30] LABS: ALK PHOS 62 U/L (45-117); CREATININE 9.7 mg/dL (0.55-1.3); TOT PROT 7.7 g/dl (6.4-8.2)
[2022-01-08 17:23] LABS: CHLORIDE 101 mmol/L (98-107); SODIUM 134 mmol/L (136-145)
[2022-01-08 17:24] LABS: CALCIUM 9.2 mg/dL (8.5-10.1)
[2022-01-08 17:25] LABS: BLOOD UREA NITROGEN 57.2 mg/dL (7-18); CO2 27 mmol/L (21-32); GLUCOSE,RANDOM 79 mg/dL (74-106)
[2022-01-08 17:28] LABS: ANION GAP 7 MMOL/L (8-16); CREATININE 9.8 mg/dL (0.55-1.3)
[2022-01-08] MEDS ORDERED: HEPARIN NA (PORCINE) 5,000 UNITS/ML 1ML VIAL IVPUSH ONE (18:12)
[2022-01-08] MEDS ORDERED: SODIUM CHLORIDE 250 ML IV PRN (18:12)
[2022-01-08] MEDS ORDERED: ALLOPURINOL 100 MG TABLET (FP) PO SCH (18:30)
[2022-01-08 20:32] LABS: CHLORIDE 106 mmol/L (98-107); SODIUM 140 mmol/L (136-145)
[2022-01-08 20:33] LABS: CALCIUM 8.7 mg/dL (8.5-10.1)
[2022-01-08 20:34] LABS: CO2 23 mmol/L (21-32); GLUCOSE,RANDOM 130 mg/dL (74-106)
[2022-01-08 20:38] LABS: ANION GAP 11 MMOL/L (8-16)
[2022-01-09] MEDS ORDERED: ATENOLOL 25 MG TABLET (FP) PO SCH (10:00)
[2022-01-09] MEDS ORDERED: NIFEdipine E.R 60 MG TABLET PO SCH (10:00)
[2022-01-09] MEDS ORDERED: TORSEMIDE 20 MG TABLET (FP) PO SCH (10:00)
[2022-01-09 11:02] LABS: BASO % 1.4 % (0-2.0); EOS % 4.8 % (0-4.5); HEMATOCRIT 42.7 % (35.4-49); HEMOGLOBIN 13.7 GM/dL (11.7-16.9); LYMPH % 22.2 % (8-40); MCH 25.7 pg (25.7-33.7); MEAN CELL VOLUME 80.4 fl (80-96); MEAN PLT VOLUME 8.1 fl (7.5-11.1); MONO % 7.6 % (3.8-10.2); PLATELET COUNT 248 10^3/uL (134-434); RBC 5.31 M/mm3 (4.00-5.60)
[2022-01-09 11:19] LABS: CHLORIDE 104 mmol/L (98-107); SODIUM 141 mmol/L (136-145)
[2022-01-09 11:22] LABS: CALCIUM 8.9 mg/dL (8.5-10.1)
[2022-01-09 11:23] LABS: ALBUMIN 2.9 g/dl (3.4-5.0); ANION GAP 14 MMOL/L (8-16); CO2 24 mmol/L (21-32); GLUCOSE,RANDOM 80 mg/dL (74-106); MAGNESIUM 2.2 mg/dL (1.8-2.4)
[2022-01-09 11:26] LABS: PHOSPHOROUS 5.8 mg/dL (2.5-4.9); SGPT/ALT 9 U/L (13-61)
[2022-01-09 11:28] LABS: BILIRUBIN,TOTAL 0.6 mg/dL (0.2-1); TOT PROT 6.7 g/dl (6.4-8.2)
[2022-01-09 11:29] LABS: ALK PHOS 50 U/L (45-117)
[2022-01-09 11:31] LABS: CREATININE 10.5 mg/dL (0.55-1.3); SGOT/AST < 3 U/L (15-37)
[2022-01-09] MEDS ORDERED: LIDOCAINE HCL 1%, 10 MG/ML (20ML VIAL) ONE (12:13)
[2022-01-09] MEDS ORDERED: MIDAZOLAM HCL 2 MG/2 ML SINGLE DOSE VIAL ONE (12:22)
[2022-01-09] MEDS ORDERED: SUCCINYLCHOLINE CHLORIDE 200 MG/10 ML SYRINGE ONE (12:22)
[2022-01-09] MEDS ORDERED: FENTANYL CITRATE/PF 50 MCG/ML VIAL ONE ×3 (12:22→13:50)
[2022-01-09] MEDS ORDERED: PROPOFOL 40 ML ONE (12:23)
[2022-01-09] MEDS ORDERED: KETAMINE HCL 500 MG/10 ML VIAL ONE (12:23)
[2022-01-09] MEDS ORDERED: PROPOFOL 20 ML ONE (12:35)
[2022-01-09] MEDS ORDERED: ceFAZolin SODIUM 1 GM VIAL IVPB ONE (12:58)
[2022-01-09] MEDS ORDERED: LIDOCAINE HCL 1%, 10 MG/ML (20ML VIAL) NR ONE (13:12)
[2022-01-09] MEDS ORDERED: ALTEPLASE (CATHFLO) 2 MG/2 ML VIAL CVP ONE (13:50)
[2022-01-09] MEDS ORDERED: SODIUM CHLORIDE 250 ML IV PRN (14:49)
[2022-01-09 17:28] LABS: HEMATOCRIT 44.1 % (35.4-49); HEMOGLOBIN 13.7 GM/dL (11.7-16.9); MCH 25.3 pg (25.7-33.7); MCHC 31.2 g/dl (32.0-35.9); MEAN CELL VOLUME 81.2 fl (80-96); MEAN PLT VOLUME 8.1 fl (7.5-11.1); PLATELET COUNT 239 10^3/uL (134-434); RBC 5.43 M/mm3 (4.00-5.60); RDW 17.4 % (11.9-15.9); WHITE BLOOD COUNT 6.3 K/mm3 (4.0-10.0)
[2022-01-09 17:52] LABS: CHLORIDE 104 mmol/L (98-107); SODIUM 140 mmol/L (136-145)
[2022-01-09 17:55] LABS: ANION GAP 13 MMOL/L (8-16); BLOOD UREA NITROGEN 63.7 mg/dL (7-18); CALCIUM 8.6 mg/dL (8.5-10.1); CO2 23 mmol/L (21-32); GLUCOSE,RANDOM 122 mg/dL (74-106)
[2022-01-09 18:07] LABS: CREATININE 10.5 mg/dL (0.55-1.3)
[2022-01-09] MEDS ORDERED: HEPARIN NA (PORCINE) 5,000 UNITS/ML 1ML VIAL IVPUSH ONE ×2 (18:12)
[2022-01-10] MEDS ORDERED: NIFEdipine E.R 60 MG TABLET PO SCH (10:00)
[2022-01-10] MEDS ORDERED: TORSEMIDE 20 MG TABLET (FP) PO SCH (10:00)
[2022-01-10] MEDS ORDERED: ATENOLOL 25 MG TABLET (FP) PO SCH (10:00)
[2022-01-10 10:40] VITALS: BP 123/75; PULSE 59; RESP 20; TEMP 98.2
[2022-01-10 12:38] LABS: CHLORIDE 101 mmol/L (98-107); SODIUM 140 mmol/L (136-145)
[2022-01-10 12:40] LABS: ALBUMIN 2.9 g/dl (3.4-5.0); ANION GAP 12 MMOL/L (8-16); BLOOD UREA NITROGEN 45.5 mg/dL (7-18); CALCIUM 8.1 mg/dL (8.5-10.1); CO2 27 mmol/L (21-32); GLUCOSE,RANDOM 118 mg/dL (74-106)
[2022-01-10 12:43] LABS: BASO % 0.6 % (0-2.0); HEMATOCRIT 42.1 % (35.4-49); HEMOGLOBIN 13.6 GM/dL (11.7-16.9); LYMPH % 15.1 % (8-40); MCH 25.6 pg (25.7-33.7); MCHC 32.3 g/dl (32.0-35.9); MEAN CELL VOLUME 79.2 fl (80-96); MEAN PLT VOLUME 8.3 fl (7.5-11.1); MONO % 8.6 % (3.8-10.2); NEUT % 72.7 % (42.8-82.8); PLATELET COUNT 223 10^3/uL (134-434); RBC 5.32 M/mm3 (4.00-5.60); RDW 17.3 % (11.9-15.9); SGPT/ALT 8 U/L (13-61); WHITE BLOOD COUNT 5.8 K/mm3 (4.0-10.0)
[2022-01-10 12:44] LABS: SGOT/AST 5 U/L (15-37)
[2022-01-10 12:45] LABS: BILIRUBIN,TOTAL 0.6 mg/dL (0.2-1); TOT PROT 6.6 g/dl (6.4-8.2)
[2022-01-10 12:46] LABS: ALK PHOS 50 U/L (45-117); CREATININE 9.1 mg/dL (0.55-1.3)
== END 2022-01-10 14:30 | disposition home or self-care (01) | DRG 252 ==
LOC: JER 12:22 → JERBED 17:17 → J5S 21:30
PROVIDERS: ADMIT Internal Medicine; ATTEND Internal Medicine
PROC: 5A1D70Z Performance of Urinary Filtration, Intermittent, Less than 6 Hours Per Day (ICD-10-PCS; 2022-01-09)
PROC: 05CY3ZZ Extirpation of Matter from Upper Vein, Percutaneous Approach (ICD-10-PCS; principal; 2022-01-09 12:30)
PROC: 3E05317 Introduction of Other Thrombolytic into Peripheral Artery, Percutaneous Approach (ICD-10-PCS; 2022-01-09 12:30)
DX: T82.590A Other mechanical complication of surgically created arteriovenous fistula, initial encounter (principal); N18.6 End stage renal disease; I12.0 Hypertensive chronic kidney disease with stage 5 chronic kidney disease or end stage renal disease; Z99.2 Dependence on renal dialysis; Y83.9 Surgical procedure, unspecified as the cause of abnormal reaction of the patient, or of later complication, without mention of misadventure at the time of the procedure; E87.5 Hyperkalemia; G47.33 Obstructive sleep apnea (adult) (pediatric); E66.9 Obesity, unspecified; Z68.33 Body mass index [BMI] 33.0-33.9, adult
CPT/HCPCS: 36415; 76000-TC-FY; 80048; 80053; 83735; 84100; 85025; 85027; 85610; 85730; 86803; 86850; 86900; 86901; 87340; 93931; 94760; 99285-25; C9803-CS; J2997; U0003; U0005

== ENCOUNTER 2022-01-11 09:49 | Inpatient (IN) | payer BC, OTHER ==
[~2022-01-11 09:49] MED LIST: LIDOCAINE HCL 1%, 10 MG/ML (20ML VIAL) NR ONE
[2022-01-11 09:57] VITALS: BMI 36.6
[2022-01-11] MEDS ORDERED: LIDOCAINE HCL 1%, 10 MG/ML (20ML VIAL) ONE (14:39)
[2022-01-11] MEDS ORDERED: FENTANYL CITRATE/PF 50 MCG/ML VIAL ONE ×2 (14:51→17:32)
[2022-01-11] MEDS ORDERED: MIDAZOLAM HCL 2 MG/2 ML SINGLE DOSE VIAL ONE ×2 (14:52→15:52)
[2022-01-11] MEDS ORDERED: FENTANYL CITRATE/PF 50 MCG/ML VIAL IVPUSH PRN (15:17)
[2022-01-11] MEDS ORDERED: ONDANSETRON 4 MG/2 ML VIAL IVPUSH PRN (15:17)
[2022-01-11] MEDS ORDERED: SODIUM CHLORIDE 1,000 ML IV SCH (15:30)
[2022-01-11] MEDS ORDERED: ceFAZolin SODIUM 1 GM VIAL IVPB ONE (15:42)
[2022-01-11] MEDS ORDERED: LIDOCAINE HCL 1%, 10 MG/ML (20ML VIAL) NR ONE (15:43)
[2022-01-12] MEDS ORDERED: SODIUM CHLORIDE 250 ML IV PRN (08:10)
[2022-01-12] MEDS ORDERED: HEPARIN NA (PORCINE) 5,000 UNITS/ML 1ML VIAL IVPUSH ONE (10:00)
[2022-01-12] MEDS ORDERED: NIFEdipine E.R 60 MG TABLET PO SCH (10:00)
[2022-01-12] MEDS ORDERED: ALLOPURINOL 100 MG TABLET (FP) PO SCH (10:00)
[2022-01-12] MEDS ORDERED: ATENOLOL 25 MG TABLET (FP) PO SCH (10:00)
[2022-01-12] MEDS ORDERED: TORSEMIDE 20 MG TABLET (FP) PO SCH (10:00)
[2022-01-12] MEDS: HEPARIN NA (PORCINE) 5,000 UNITS/ML 1ML VIAL IVPUSH SCH ×3 (10:22→13:05)
[2022-01-12 10:29] LABS: HEMATOCRIT 42.1 % (35.4-49); HEMOGLOBIN 13.3 GM/dL (11.7-16.9); MCH 25.6 pg (25.7-33.7); MCHC 31.7 g/dl (32.0-35.9); MEAN CELL VOLUME 80.9 fl (80-96); MEAN PLT VOLUME 8.6 fl (7.5-11.1); PLATELET COUNT 204 10^3/uL (134-434); RDW 16.9 % (11.9-15.9); WHITE BLOOD COUNT 4.9 K/mm3 (4.0-10.0)
[2022-01-12 10:31] VITALS: RESP 18
[2022-01-12 10:35] VITALS: TEMP 98.2
[2022-01-12 10:55] LABS: CHLORIDE 97 mmol/L (98-107); SODIUM 136 mmol/L (136-145)
[2022-01-12 11:12] LABS: CALCIUM 8.3 mg/dL (8.5-10.1)
[2022-01-12 11:13] LABS: ANION GAP 16 MMOL/L (8-16); CO2 24 mmol/L (21-32); GLUCOSE,RANDOM 142 mg/dL (74-106)
[2022-01-12 11:16] LABS: ALBUMIN 2.9 g/dl (3.4-5.0); SGOT/AST 7 U/L (15-37); SGPT/ALT 7 U/L (13-61)
[2022-01-12 11:17] LABS: BILIRUBIN,TOTAL 0.5 mg/dL (0.2-1)
[2022-01-12 11:18] LABS: TOT PROT 7.1 g/dl (6.4-8.2)
[2022-01-12 11:19] LABS: ALK PHOS 52 U/L (45-117)
[2022-01-12 11:21] LABS: CREATININE 10.8 mg/dL (0.55-1.3)
[2022-01-12 12:55] VITALS: PULSE 62
[2022-01-12 13:02] VITALS: BP 139/72
== END 2022-01-12 14:27 | disposition home or self-care (01) | DRG 314 ==
LOC: JER 09:49 → JERBED 16:17 → J6S 21:09
PROVIDERS: ADMIT Surgery Vascular Surgery; ATTEND Surgery Vascular Surgery
PROC: 5A1D70Z Performance of Urinary Filtration, Intermittent, Less than 6 Hours Per Day (ICD-10-PCS; 2022-01-09)
PROC: 05HN03Z Insertion of Infusion Device into Left Internal Jugular Vein, Open Approach (ICD-10-PCS; 2022-01-11)
PROC: B51 Imaging, Veins, Fluoroscopy (ICD-10-PCS; 2022-01-11)
PROC: 0JH63XZ Insertion of Tunneled Vascular Access Device into Chest Subcutaneous Tissue and Fascia, Percutaneous Approach (ICD-10-PCS; principal; 2022-01-11 14:30)
DX: T82.590A Other mechanical complication of surgically created arteriovenous fistula, initial encounter (principal); N18.6 End stage renal disease; I12.0 Hypertensive chronic kidney disease with stage 5 chronic kidney disease or end stage renal disease; E11.22 Type 2 diabetes mellitus with diabetic chronic kidney disease; Z99.2 Dependence on renal dialysis; M10.9 Gout, unspecified; E11.51 Type 2 diabetes mellitus with diabetic peripheral angiopathy without gangrene; M51.36 Other intervertebral disc degeneration, lumbar region; R06.81 Apnea, not elsewhere classified; Z85.46 Personal history of malignant neoplasm of prostate; Z96.643 Presence of artificial hip joint, bilateral; Z96.653 Presence of artificial knee joint, bilateral; Y83.8 Other surgical procedures as the cause of abnormal reaction of the patient, or of later complication, without mention of misadventure at the time of the procedure
CPT/HCPCS: 36415; 71045-TC-FY; 76000-TC-FY; 80053; 85027; 93005; 93010; 94760; 99285-25; C1750; J1644

== ENCOUNTER 2022-02-06 11:08 | Inpatient (IN) | payer BC, OTHER ==
[2022-02-06 14:02] LABS: INR 1.2 (0.83-1.09); PROTHROMBIN TIME (PATIENT) 13.8 SEC (9.7-13.0)
[2022-02-06 14:18] LABS: BILIRUBIN,TOTAL 0.8 mg/dl (0.2-1); CALCIUM 9.2 mg/dl (8.5-10); MAGNESIUM 1.9 mg/dL (1.8-2.4); TOT PROT 7.2 g/dl (6.4-8.2)
[2022-02-06 14:19] LABS: ACTIVATED PTT 26.2 SECONDS (25.2-36.5)
[2022-02-06 14:23] LABS: HEMATOCRIT 37.2 % (35.4-49); HEMOGLOBIN 12.6 G/dL (11.7-16.9); MCH 26.2 pg (25.7-33.7); MCHC 33.7 g/dl (32.0-35.9); MEAN CELL VOLUME 77.7 fl (80-96); PLATELET COUNT 78.2 10^3/uL (134-434); RBC 4.79 10^6/uL (4.00-5.60); RDW 17.3 % (11.9-15.9); WHITE BLOOD COUNT 8.6 10^3/uL (4.0-10.8)
[2022-02-06 14:25] LABS: CREATININE 9.9 mg/dl (0.55-1.3)
[2022-02-06 14:54] LABS: PLATELET ESTIMATE SLT DECREASE
[2022-02-06] MEDS ORDERED: ACETAMINOPHEN 1000 MG/100 ML BAG IVPB ONE (15:16)
[2022-02-06] MEDS ORDERED: ACETAMINOPHEN INJECTION 100 ML IVPB ONE (15:36)
[2022-02-06] MEDS ORDERED: ACETAMINOPHEN 500 MG TABLET (FP) ONE (17:42)
[2022-02-06] MEDS ORDERED: PIPERACILLIN/TAZOB 2.25 GM 2.25 GM in DEXTROSE 5%-WATER - 50 ML IVPB ONE (20:55)
[2022-02-06] MEDS ORDERED: VANCOMYCIN 1,000 MG in DEXTROSE 5%-WATER - 250 ML IVPB ONE (21:06)
[2022-02-06] MEDS ORDERED: VANCOMYCIN 1,000 MG VIAL (RESTRICTED TO ID ONLY) ONE ×2 (21:41→22:34)
[2022-02-06] MEDS ORDERED: PIPERACILLIN/TAZOBACTAM 3.375 GM VIAL IVPB ONE (21:41)
[2022-02-06] MEDS: ACETAMINOPHEN 325 MG TABLET (FP) PO PRN (22:07)
[2022-02-06] MEDS ORDERED: ACETAMINOPHEN 325 MG TABLET (FP) ONE (22:09)
[2022-02-07] MEDS ORDERED: ACETAMINOPHEN 325 MG TABLET (FP) ONE (01:51)
[2022-02-07 06:11] LABS: CHLORIDE 96 mmol/L (98-107); SODIUM 134 mmol/L (136-145)
[2022-02-07 06:12] LABS: CALCIUM 9.1 mg/dL (8.5-10.1)
[2022-02-07 06:13] LABS: ALBUMIN 2.6 g/dl (3.4-5.0); ANION GAP 16 MMOL/L (8-16); BLOOD UREA NITROGEN 83.5 mg/dL (7-18); CO2 22 mmol/L (21-32); GLUCOSE,RANDOM 121 mg/dL (74-106)
[2022-02-07 06:16] LABS: SGOT/AST 47 U/L (15-37); SGPT/ALT 29 U/L (13-61)
[2022-02-07 06:18] LABS: BASO % 0.5 % (0-2.0); HEMOGLOBIN 11.4 GM/dL (11.7-16.9); LYMPH % 0.7 % (8-40); MCH 24.6 pg (25.7-33.7); MCHC 31.8 g/dl (32.0-35.9); MEAN CELL VOLUME 77.5 fl (80-96); MEAN PLT VOLUME 9.7 fl (7.5-11.1); MONO % 9.5 % (3.8-10.2); NEUT % 89.3 % (42.8-82.8); PLATELET COUNT 72 10^3/uL (134-434); RBC 4.64 M/mm3 (4.00-5.60); RDW 16.5 % (11.9-15.9); WHITE BLOOD COUNT 7.8 K/mm3 (4.0-10.0)
[2022-02-07 06:19] LABS: ALK PHOS 56 U/L (45-117)
[2022-02-07 06:20] LABS: CREATININE 11.6 mg/dL (0.55-1.3)
[2022-02-07] MEDS ORDERED: ETOMIDATE 20 MG/10 ML VIAL IVPUSH ONE (08:50)
[2022-02-07] MEDS: TORSEMIDE 20 MG TABLET (FP) PO SCH (09:37)
[2022-02-07] MEDS: ATENOLOL 25 MG TABLET (FP) PO SCH (09:37)
[2022-02-07] MEDS: NIFEdipine E.R 60 MG TABLET PO SCH (09:37)
[2022-02-07] MEDS ORDERED: SODIUM CHLORIDE 250 ML IV PRN ×2 (12:54→12:55)
[2022-02-07] MEDS ORDERED: traMADol HCL 50 MG TABLET PO PRN (13:14)
[2022-02-07] MEDS ORDERED: VANCOMYCIN 1 GM/200 ML PREMIX BAG (RESTRICTED TO ID ONLY) IVPB SCH (13:15)
[2022-02-07] MEDS ORDERED: VANCOMYCIN 1 GM/200 ML PREMIX BAG (RESTRICTED TO ID ONLY) IVPB ONE (13:45)
[2022-02-07] MEDS ORDERED: PIPERACILLIN/TAZOBACTAM 2.25 GM VIAL IVPB ONE (14:27)
[2022-02-07] MEDS: PIPERACILLIN/TAZOB 2.25 GM 2.25 GM in DEXTROSE 5%-WATER - 50 ML IVPB SCH ×2 (14:36→22:20)
[2022-02-07] MEDS ORDERED: HEPARIN NA (PORCINE) 5,000 UNITS/ML 1ML VIAL SQ SCH (22:00)
[2022-02-07] MEDS ORDERED: PIPERACILLIN/TAZOB 2.25 GM 2.25 GM in DEXTROSE 5%-WATER - 50 ML IVPB SCH (22:00)
[2022-02-08] MEDS: ACETAMINOPHEN 325 MG TABLET (FP) PO PRN ×2 (04:34→16:46)
[2022-02-08 08:43] LABS: HEMATOCRIT 37.8 % (35.4-49); HEMOGLOBIN 12.4 GM/dL (11.7-16.9); MCH 25.5 pg (25.7-33.7); MCHC 32.8 g/dl (32.0-35.9); MEAN CELL VOLUME 77.7 fl (80-96); MEAN PLT VOLUME 9.3 fl (7.5-11.1); PLATELET COUNT 87 10^3/uL (134-434); RBC 4.87 M/mm3 (4.00-5.60); RDW 16.1 % (11.9-15.9); WHITE BLOOD COUNT 8.8 K/mm3 (4.0-10.0)
[2022-02-08 08:46] LABS: CHLORIDE 94 mmol/L (98-107); SODIUM 132 mmol/L (136-145)
[2022-02-08 08:52] LABS: CALCIUM 9.5 mg/dL (8.5-10.1)
[2022-02-08 08:53] LABS: ALBUMIN 2.3 g/dl (3.4-5.0); ANION GAP 17 MMOL/L (8-16); CO2 21 mmol/L (21-32); GLUCOSE,RANDOM 120 mg/dL (74-106); MAGNESIUM 2.4 mg/dL (1.8-2.4)
[2022-02-08 08:54] LABS: SGPT/ALT 65 U/L (13-61)
[2022-02-08 08:56] LABS: BILIRUBIN,TOTAL 1.2 mg/dL (0.2-1); SGOT/AST 125 U/L (15-37)
[2022-02-08 08:57] LABS: ALK PHOS 79 U/L (45-117)
[2022-02-08 09:37] LABS: BLOOD UREA NITROGEN 109.9 mg/dL (7-18); CREATININE 13.4 mg/dL (0.55-1.3)
[2022-02-08 10:02] LABS: ERYTHROCYTE SEDIMENTATION RATE 82 mm/hr (0-20)
[2022-02-08] MEDS ORDERED: VANCOMYCIN/WATER FOR INJ (PEG) 1 GM/200 ML BAG IVPB ONE (13:15)
[2022-02-08] MEDS: NIFEdipine E.R 60 MG TABLET PO SCH (16:15)
[2022-02-08] MEDS: ATENOLOL 25 MG TABLET (FP) PO SCH (16:15)
[2022-02-08] MEDS: TORSEMIDE 20 MG TABLET (FP) PO SCH (16:15)
[2022-02-08] MEDS: PIPERACILLIN/TAZOB 2.25 GM 2.25 GM in DEXTROSE 5%-WATER - 50 ML IVPB SCH ×4 (16:15→20:11)
[2022-02-08] MEDS: INSULIN SLIDING SCALE (NOVOLOG) 1 VIAL SQ SCH (21:26)
[2022-02-08] MEDS: HEPARIN NA (PORCINE) 5,000 UNITS/ML 1ML VIAL SQ SCH (21:26)
[2022-02-09] MEDS: PIPERACILLIN/TAZOB 2.25 GM 2.25 GM in DEXTROSE 5%-WATER - 50 ML IVPB SCH ×2 (01:09→09:34)
[2022-02-09] MEDS: INSULIN SLIDING SCALE (NOVOLOG) 1 VIAL SQ SCH ×4 (06:17→22:33)
[2022-02-09] MEDS: HEPARIN NA (PORCINE) 5,000 UNITS/ML 1ML VIAL SQ SCH ×3 (06:23→22:28)
[2022-02-09 07:59] LABS: CHLORIDE 96 mmol/L (98-107); SODIUM 135 mmol/L (136-145)
[2022-02-09 08:01] LABS: CALCIUM 8.8 mg/dL (8.5-10.1)
[2022-02-09 08:02] LABS: ALBUMIN 2.1 g/dl (3.4-5.0); ANION GAP 15 MMOL/L (8-16); BLOOD UREA NITROGEN 90.2 mg/dL (7-18); CO2 23 mmol/L (21-32); GLUCOSE,RANDOM 119 mg/dL (74-106); MAGNESIUM 2.3 mg/dL (1.8-2.4)
[2022-02-09 08:05] LABS: SGOT/AST 108 U/L (15-37); SGPT/ALT 78 U/L (13-61)
[2022-02-09 08:07] LABS: BILIRUBIN,TOTAL 1.1 mg/dL (0.2-1); TOT PROT 6.7 g/dl (6.4-8.2)
[2022-02-09 08:08] LABS: ALK PHOS 108 U/L (45-117)
[2022-02-09 08:30] LABS: CREATININE 10.3 mg/dL (0.55-1.3)
[2022-02-09 08:34] LABS: HEMATOCRIT 34.9 % (35.4-49); HEMOGLOBIN 11.4 GM/dL (11.7-16.9); MCH 25.4 pg (25.7-33.7); MCHC 32.8 g/dl (32.0-35.9); MEAN CELL VOLUME 77.4 fl (80-96); MEAN PLT VOLUME 9.3 fl (7.5-11.1); PLATELET COUNT 109 10^3/uL (134-434); RDW 16.1 % (11.9-15.9); WHITE BLOOD COUNT 8.4 K/mm3 (4.0-10.0)
[2022-02-09] MEDS ORDERED: LIDOCAINE HCL 1%, 10 MG/ML (50 mL VIAL) SQ ONE (08:51)
[2022-02-09] MEDS ORDERED: LIDOCAINE HCL 1%, 10 MG/ML (20ML VIAL) ONE (08:51)
[2022-02-09] MEDS ORDERED: LIDOCAINE HCL 1%, 10 MG/ML (20ML VIAL) SQ ONE (09:00)
[2022-02-09] MEDS: NIFEdipine E.R 60 MG TABLET PO SCH (09:34)
[2022-02-09] MEDS: TORSEMIDE 20 MG TABLET (FP) PO SCH (09:34)
[2022-02-09] MEDS: ATENOLOL 25 MG TABLET (FP) PO SCH (09:35)
[2022-02-09 09:51] LABS: ANISOCYTOSIS 2+; MACROCYTOSIS 0; PLATELET ESTIMATE DECREASED; TARGET CELLS 1+
[2022-02-09] MEDS ORDERED: TORSEMIDE 20 MG TABLET (FP) PO ONE (11:15)
[2022-02-09] MEDS ORDERED: NAFCILLIN - 2 GM in DEXTROSE 5%-WATER - 100 ML IVPB SCH (15:00)
[2022-02-09] MEDS: NAFCILLIN - 2 GM in DEXTROSE 5%-WATER 100 ML IVPB SCH ×3 (15:48→22:27)
[2022-02-09] MEDS: LIDOCAINE 5% TOPICAL PATCH TP SCH (16:02)
[2022-02-09] MEDS: LIDOCAINE PATCH REMOVAL MC SCH (22:29)
[2022-02-10] MEDS: NAFCILLIN - 2 GM in DEXTROSE 5%-WATER 100 ML IVPB SCH ×6 (02:08→22:04)
[2022-02-10] MEDS: HEPARIN NA (PORCINE) 5,000 UNITS/ML 1ML VIAL SQ SCH ×3 (06:23→22:04)
[2022-02-10] MEDS: INSULIN SLIDING SCALE (NOVOLOG) 1 VIAL SQ SCH ×4 (06:31→22:08)
[2022-02-10 08:33] LABS: HEMATOCRIT 34.2 % (35.4-49); HEMOGLOBIN 11.4 GM/dL (11.7-16.9); MCH 25.4 pg (25.7-33.7); MCHC 33.2 g/dl (32.0-35.9); MEAN CELL VOLUME 76.4 fl (80-96); MEAN PLT VOLUME 9.3 fl (7.5-11.1); PLATELET COUNT 188 10^3/uL (134-434); RBC 4.48 M/mm3 (4.00-5.60); RDW 16.9 % (11.9-15.9); WHITE BLOOD COUNT 9.3 K/mm3 (4.0-10.0)
[2022-02-10 08:36] LABS: CHLORIDE 92 mmol/L (98-107); SODIUM 129 mmol/L (136-145)
[2022-02-10 08:44] LABS: ALBUMIN 1.8 g/dl (3.4-5.0); CO2 23 mmol/L (21-32); GLUCOSE,RANDOM 106 mg/dL (74-106); MAGNESIUM 2.9 mg/dL (1.8-2.4)
[2022-02-10 08:47] LABS: SGOT/AST 87 U/L (15-37)
[2022-02-10 08:49] LABS: BILIRUBIN,TOTAL 4.5 mg/dL (0.2-1)
[2022-02-10 08:50] LABS: ALK PHOS 123 U/L (45-117)
[2022-02-10 09:04] LABS: ANION GAP 15 MMOL/L (8-16); BLOOD UREA NITROGEN 116.7 mg/dL (7-18); CREATININE 11.7 mg/dL (0.55-1.3); SGPT/ALT 63 U/L (13-61)
[2022-02-10] MEDS: LIDOCAINE 5% TOPICAL PATCH TP SCH (09:40)
[2022-02-10] MEDS: TORSEMIDE 20 MG TABLET (FP) PO SCH (09:41)
[2022-02-10 09:42] LABS: ANISOCYTOSIS 0; HELMET CELLS 0; HOWELL-JOLLY BODIES 0; MACROCYTOSIS 0; OVALOCYTE 0; ROULEAU 0; SICKELED CELLS 0; TARGET CELLS 0; TEAR DROP CELLS 0; TOXIC GRANULATION 0
[2022-02-10] MEDS: ATENOLOL 25 MG TABLET (FP) PO SCH (09:45)
[2022-02-10] MEDS: NIFEdipine E.R 60 MG TABLET PO SCH (09:46)
[2022-02-10 13:33] LABS: CHLORIDE 92 mmol/L (98-107); SODIUM 134 mmol/L (136-145)
[2022-02-10 13:35] LABS: ANION GAP 20 MMOL/L (8-16); CALCIUM 8.9 mg/dL (8.5-10.1); CO2 22 mmol/L (21-32)
[2022-02-10 13:36] LABS: GLUCOSE,RANDOM 113 mg/dL (74-106)
[2022-02-10 13:38] LABS: SGPT/ALT 57 U/L (13-61)
[2022-02-10 13:39] LABS: SGOT/AST 56 U/L (15-37)
[2022-02-10 13:40] LABS: BILIRUBIN,TOTAL 4.5 mg/dL (0.2-1); TOT PROT 6.8 g/dl (6.4-8.2)
[2022-02-10 13:41] LABS: ALK PHOS 127 U/L (45-117)
[2022-02-10 13:48] LABS: BLOOD UREA NITROGEN 128.2 mg/dL (7-18); CREATININE 12.1 mg/dL (0.55-1.3)
[2022-02-10] MEDS ORDERED: SODIUM ZIRCONIUM CYCLOSILICATE (LOKELMA) 5 GM PACKET PO SCH ×2 (14:00→16:00)
[2022-02-10] MEDS: traMADol HCL 50 MG TABLET PO PRN (16:04)
[2022-02-10] MEDS: LIDOCAINE PATCH REMOVAL MC SCH (22:04)
[2022-02-11] MEDS: NAFCILLIN - 2 GM in DEXTROSE 5%-WATER 100 ML IVPB SCH ×5 (02:23→21:44)
[2022-02-11] MEDS: INSULIN SLIDING SCALE (NOVOLOG) 1 VIAL SQ SCH ×4 (06:39→21:52)
[2022-02-11] MEDS: HEPARIN NA (PORCINE) 5,000 UNITS/ML 1ML VIAL SQ SCH ×3 (06:49→21:44)
[2022-02-11 07:19] LABS: HEMATOCRIT 34.5 % (35.4-49); HEMOGLOBIN 11.5 GM/dL (11.7-16.9); MCH 25.7 pg (25.7-33.7); MCHC 33.4 g/dl (32.0-35.9); MEAN CELL VOLUME 76.9 fl (80-96); MEAN PLT VOLUME 8.3 fl (7.5-11.1); PLATELET COUNT 195 10^3/uL (134-434); RBC 4.48 M/mm3 (4.00-5.60); RDW 16.4 % (11.9-15.9); WHITE BLOOD COUNT 9.5 K/mm3 (4.0-10.0)
[2022-02-11 07:27] LABS: INR 1.36 (0.83-1.09); PROTHROMBIN TIME (PATIENT) 15.7 SEC (9.7-13.0)
[2022-02-11 07:42] LABS: CHLORIDE 89 mmol/L (98-107); SODIUM 131 mmol/L (136-145)
[2022-02-11 07:57] LABS: SGPT/ALT 43 U/L (13-61)
[2022-02-11 07:59] LABS: BILIRUBIN,TOTAL 6.6 mg/dL (0.2-1); TOT PROT 6.7 g/dl (6.4-8.2)
[2022-02-11 09:21] LABS: ANISOCYTOSIS 0; HELMET CELLS 0; HOWELL-JOLLY BODIES 0; MACROCYTOSIS 0; OVALOCYTE 0; ROULEAU 0; SICKELED CELLS 0; TARGET CELLS 0; TEAR DROP CELLS 0; TOXIC GRANULATION 0
[2022-02-11 09:24] LABS: ALBUMIN 1.8 g/dl (3.4-5.0); ALK PHOS 116 U/L (45-117); ANION GAP 22 MMOL/L (8-16); BLOOD UREA NITROGEN 145.1 mg/dL (7-18); CALCIUM 8.6 mg/dL (8.5-10.1); CO2 20 mmol/L (21-32); CREATININE 12.9 mg/dL (0.55-1.3); GLUCOSE,RANDOM 100 mg/dL (74-106); SGOT/AST 37 U/L (15-37)
[2022-02-11 09:42] LABS: MAGNESIUM 3.1 mg/dL (1.8-2.4)
[2022-02-11] MEDS ORDERED: SODIUM CHLORIDE 250 ML IV PRN (10:07)
[2022-02-11 10:27] LABS: BILIRUBIN,DIRECT 3.6 mg/dL (0.0-0.2)
[2022-02-11] MEDS: NIFEdipine E.R 60 MG TABLET PO SCH (18:54)
[2022-02-11] MEDS: TORSEMIDE 20 MG TABLET (FP) PO SCH (18:54)
[2022-02-11] MEDS: LIDOCAINE 5% TOPICAL PATCH TP SCH (18:54)
[2022-02-11] MEDS: traMADol HCL 50 MG TABLET PO PRN (18:55)
[2022-02-11] MEDS: ATENOLOL 25 MG TABLET (FP) PO SCH (18:55)
[2022-02-11] MEDS: LIDOCAINE PATCH REMOVAL MC SCH (21:45)
[2022-02-12] MEDS: NAFCILLIN - 2 GM in DEXTROSE 5%-WATER 100 ML IVPB SCH ×6 (03:09→23:09)
[2022-02-12] MEDS: INSULIN SLIDING SCALE (NOVOLOG) 1 VIAL SQ SCH ×4 (06:08→23:09)
[2022-02-12] MEDS: HEPARIN NA (PORCINE) 5,000 UNITS/ML 1ML VIAL SQ SCH ×2 (06:08→14:20)
[2022-02-12 08:07] LABS: INR 1.4 (0.83-1.09); PROTHROMBIN TIME (PATIENT) 16.1 SEC (9.7-13.0)
[2022-02-12 08:25] LABS: CHLORIDE 97 mmol/L (98-107); SODIUM 138 mmol/L (136-145)
[2022-02-12 08:29] LABS: GLUCOSE,RANDOM 99 mg/dL (74-106)
[2022-02-12 08:30] LABS: ALBUMIN 1.9 g/dl (3.4-5.0); ANION GAP 13 MMOL/L (8-16); CO2 28 mmol/L (21-32)
[2022-02-12 08:32] LABS: SGOT/AST 32 U/L (15-37); SGPT/ALT 39 U/L (13-61)
[2022-02-12 08:35] LABS: ALK PHOS 107 U/L (45-117); HEMATOCRIT 36.5 % (35.4-49); HEMOGLOBIN 12.2 GM/dL (11.7-16.9); MCH 25.5 pg (25.7-33.7); MCHC 33.4 g/dl (32.0-35.9); MEAN CELL VOLUME 76.3 fl (80-96); MEAN PLT VOLUME 7.7 fl (7.5-11.1); PLATELET COUNT 212 10^3/uL (134-434); RBC 4.78 M/mm3 (4.00-5.60); RDW 16.4 % (11.9-15.9); WHITE BLOOD COUNT 7.4 K/mm3 (4.0-10.0)
[2022-02-12 08:39] LABS: CALCIUM 8.3 mg/dL (8.5-10.1); MAGNESIUM 2.7 mg/dL (1.8-2.4)
[2022-02-12 08:50] LABS: BILIRUBIN,TOTAL 6.7 mg/dL (0.2-1); BLOOD UREA NITROGEN 84.4 mg/dL (7-18); CREATININE 9.1 mg/dL (0.55-1.3)
[2022-02-12 09:14] LABS: ANISOCYTOSIS 0; HELMET CELLS 0; HOWELL-JOLLY BODIES 0; MACROCYTOSIS 0; OVALOCYTE 0; ROULEAU 0; SICKELED CELLS 0; TARGET CELLS 0; TEAR DROP CELLS 0; TOXIC GRANULATION 0
[2022-02-12] MEDS: LIDOCAINE 5% TOPICAL PATCH TP SCH (11:18)
[2022-02-12] MEDS: NIFEdipine E.R 60 MG TABLET PO SCH (11:53)
[2022-02-12] MEDS: TORSEMIDE 20 MG TABLET (FP) PO SCH (11:53)
[2022-02-12] MEDS: SODIUM ZIRCONIUM CYCLOSILICATE (LOKELMA) 5 GM PACKET PO SCH (11:53)
[2022-02-12] MEDS: ATENOLOL 25 MG TABLET (FP) PO SCH (11:53)
[2022-02-12] MEDS ORDERED: SODIUM CHLORIDE 250 ML IV PRN (11:55)
[2022-02-12] MEDS: traMADol HCL 50 MG TABLET PO PRN (23:07)
[2022-02-12] MEDS: LIDOCAINE PATCH REMOVAL MC SCH (23:10)
[2022-02-13] MEDS: NAFCILLIN - 2 GM in DEXTROSE 5%-WATER 100 ML IVPB SCH ×3 (03:52→10:31)
[2022-02-13] MEDS: INSULIN SLIDING SCALE (NOVOLOG) 1 VIAL SQ SCH ×2 (06:43→12:01)
[2022-02-13] MEDS ORDERED: VANCOMYCIN 1,000 MG VIAL (RESTRICTED TO ID ONLY) ONE ×2 (08:06→13:07)
[2022-02-13] MEDS ORDERED: BUPIVACAINE LIPOSOME/PF (EXPAREL) 266 MG/20 ML VIAL ONE (08:06)
[2022-02-13] MEDS ORDERED: GENTAMICIN SO4 80 MG/2 ML VIAL ONE (08:06)
[2022-02-13] MEDS ORDERED: THROMBIN (BOVINE) 5,000 UNIT VIAL TP ONE ×6 (08:06→16:51)
[2022-02-13] MEDS ORDERED: BUPIVACAINE HCL/PF 0.5% (5MG/ML) 10 ML VIAL ONE (08:06)
[2022-02-13 08:16] LABS: INR 1.42 (0.83-1.09); PROTHROMBIN TIME (PATIENT) 16.4 SEC (9.7-13.0)
[2022-02-13] MEDS: ATENOLOL 25 MG TABLET (FP) PO SCH (10:31)
[2022-02-13] MEDS: TORSEMIDE 20 MG TABLET (FP) PO SCH (10:31)
[2022-02-13] MEDS: LIDOCAINE 5% TOPICAL PATCH TP SCH ×2 (10:33→10:50)
[2022-02-13] MEDS: NIFEdipine E.R 60 MG TABLET PO SCH (10:33)
[2022-02-13] MEDS: SODIUM ZIRCONIUM CYCLOSILICATE (LOKELMA) 5 GM PACKET PO SCH (10:33)
[2022-02-13] MEDS ORDERED: ETOMIDATE 20 MG/10 ML VIAL IVPUSH ONE (12:47)
[2022-02-13] MEDS ORDERED: ROCURONIUM BROMIDE 50 MG/5 ML SYRINGE ONE ×3 (12:47→18:21)
[2022-02-13] MEDS ORDERED: MIDAZOLAM HCL 2 MG/2 ML SINGLE DOSE VIAL ONE (12:47)
[2022-02-13] MEDS ORDERED: PROPOFOL 20 ML ONE (12:47)
[2022-02-13] MEDS ORDERED: LIDOCAINE HCL/PF 2% SDV 5ML VIAL ONE (12:47)
[2022-02-13] MEDS ORDERED: ceFAZolin SODIUM 1 GM VIAL ONE ×2 (13:07→19:39)
[2022-02-13 14:18] LABS: HEMATOCRIT 30.4 % (35.4-49); HEMOGLOBIN 10.1 GM/dL (11.7-16.9); MCH 25.3 pg (25.7-33.7); MCHC 33.2 g/dl (32.0-35.9); MEAN CELL VOLUME 76.1 fl (80-96); MEAN PLT VOLUME 7.7 fl (7.5-11.1); PLATELET COUNT 187 10^3/uL (134-434); RDW 16.2 % (11.9-15.9); WHITE BLOOD COUNT 6.5 K/mm3 (4.0-10.0)
[2022-02-13 14:20] LABS: ALBUMIN 1.6 g/dl (3.4-5.0); CALCIUM 8.1 mg/dL (8.5-10.1)
[2022-02-13 14:21] LABS: MAGNESIUM 2.4 mg/dL (1.8-2.4)
[2022-02-13 14:25] LABS: TOT PROT 6.4 g/dl (6.4-8.2)
[2022-02-13 14:27] LABS: BLOOD UREA NITROGEN 56.2 mg/dL (7-18)
[2022-02-13 14:47] LABS: ANISOCYTOSIS 0; HELMET CELLS 0; HOWELL-JOLLY BODIES 0; MACROCYTOSIS 0; OVALOCYTE 0; ROULEAU 0; SICKELED CELLS 0; TARGET CELLS 0; TEAR DROP CELLS 0; TOXIC GRANULATION 0
[2022-02-13] MEDS ORDERED: traMADol HCL 50 MG TABLET PO PRN (15:01)
[2022-02-13] MEDS ORDERED: ONDANSETRON 4 MG/2 ML VIAL IVPUSH PRN ×3 (15:01→22:25)
[2022-02-13] MEDS ORDERED: SODIUM CHLORIDE 250 ML IV PRN ×2 (15:01→22:25)
[2022-02-13] MEDS ORDERED: VANCOMYCIN 1 GM in NS (PRE-DOCKED) 1,000 MG/250 ML IVPB ONE ×3 (15:50→15:54)
[2022-02-13] MEDS ORDERED: ceFAZolin SODIUM 1 GM VIAL IVPB ONE ×2 (16:10)
[2022-02-13] MEDS ORDERED: GENTAMICIN SO4 80 MG/2 ML VIAL IVPB ONE ×2 (16:40)
[2022-02-13] MEDS ORDERED: HYDROGEN PEROXIDE 473 ML PO ONE ×3 (16:45)
[2022-02-13] MEDS ORDERED: BUPIVACAINE LIPOSOME/PF (EXPAREL) 266 MG/20 ML VIAL NR ONE ×2 (19:54)
[2022-02-13] MEDS ORDERED: BUPIVACAINE HCL/PF 0.5% (5 MG/ML) 30 ML VIAL IJ ONE ×2 (19:54)
[2022-02-13] MEDS ORDERED: SUGAMMADEX SODIUM 200 MG/2 ML VIAL ONE (19:55)
[2022-02-13] MEDS ORDERED: ONDANSETRON 4 MG/2 ML VIAL ONE (20:07)
[2022-02-13] MEDS ORDERED: NEOSTIGMINE METHYLSULFATE 0.5 MG/ML - 10 ML MDV ONE (20:44)
[2022-02-13] MEDS ORDERED: GLYCOPYRROLATE 0.2 MG/1 ML VIAL ONE (20:45)
[2022-02-13] MEDS ORDERED: SODIUM CHLORIDE 0.9% P/F 10 ML VIAL IJ ONE (21:32)
[2022-02-13] MEDS ORDERED: HEPARIN NA (PORCINE) 5,000 UNITS/ML 1ML VIAL SQ SCH (22:00)
[2022-02-13] MEDS ORDERED: PROMETHAZINE HCL 25 MG/1 ML VIAL IVPUSH PRN (22:00)
[2022-02-13] MEDS ORDERED: LIDOCAINE PATCH REMOVAL MC SCH ×3 (22:00→22:25)
[2022-02-13] MEDS ORDERED: HYDROmorphone *PCA* 10MG/50ML DISP.SYRIN ONE (22:20)
[2022-02-13 22:27] LABS: BASO % 1.1 % (0-2.0); EOS % 0.3 % (0-4.5); HEMATOCRIT 33.4 % (35.4-49); HEMOGLOBIN 11.1 GM/dL (11.7-16.9); LYMPH % 3.4 % (8-40); MCH 25.9 pg (25.7-33.7); MCHC 33.2 g/dl (32.0-35.9); MEAN CELL VOLUME 77.9 fl (80-96); MEAN PLT VOLUME 7.6 fl (7.5-11.1); MONO % 3.7 % (3.8-10.2); NEUT % 91.5 % (42.8-82.8); PLATELET COUNT 164 10^3/uL (134-434); RBC 4.29 M/mm3 (4.00-5.60); RDW 16.5 % (11.9-15.9); WHITE BLOOD COUNT 9.7 K/mm3 (4.0-10.0)
[2022-02-13 22:33] LABS: INR 1.35 (0.83-1.09); PROTHROMBIN TIME (PATIENT) 15.6 SEC (9.7-13.0)
[2022-02-13] MEDS: HYDROmorphone *PCA* 10MG/50ML DISP.SYRIN PCA SCH (22:40)
[2022-02-13 22:54] LABS: ANISOCYTOSIS 2+; MACROCYTOSIS 0; TARGET CELLS 2+; TEAR DROP CELLS 1+
[2022-02-13] MEDS: SODIUM CHLORIDE 1,000 ML IV SCH (23:00)
[2022-02-13 23:03] LABS: CHLORIDE 98 mmol/L (98-107); SODIUM 136 mmol/L (136-145)
[2022-02-13 23:05] LABS: ALBUMIN 1.6 g/dl (3.4-5.0); ANION GAP 12 MMOL/L (8-16); CALCIUM 8.2 mg/dL (8.5-10.1); CO2 26 mmol/L (21-32); GLUCOSE,RANDOM 130 mg/dL (74-106); MAGNESIUM 2.3 mg/dL (1.8-2.4)
[2022-02-13 23:06] LABS: BLOOD UREA NITROGEN 67.2 mg/dL (7-18)
[2022-02-13 23:08] LABS: SGOT/AST 36 U/L (15-37)
[2022-02-13 23:09] LABS: SGPT/ALT 28 U/L (13-61)
[2022-02-13 23:10] LABS: BILIRUBIN,TOTAL 4.8 mg/dL (0.2-1); TOT PROT 5.8 g/dl (6.4-8.2)
[2022-02-13 23:50] LABS: ALK PHOS 72 U/L (45-117); CREATININE 7.6 mg/dL (0.55-1.3); PHOSPHOROUS 9.6 mg/dL (2.5-4.9)
[2022-02-14] MEDS: MUPIROCIN 2% TOPICAL OINTMENT FOR DECOLONIZATION NS SCH ×3 (00:48→21:02)
[2022-02-14] MEDS: CHLORHEXIDINE GLUCONATE 4% CLEANSER FOR DECOLONIZATION TP SCH ×2 (00:48→21:02)
[2022-02-14] MEDS: DOCUSATE SODIUM 100 MG CAPSULE (FP) PO SCH ×4 (00:52→21:02)
[2022-02-14] MEDS: INSULIN SLIDING SCALE (NOVOLOG) 1 VIAL SQ SCH ×6 (00:52→21:03)
[2022-02-14] MEDS: NAFCILLIN - 2 GM in DEXTROSE 5%-WATER 100 ML IVPB SCH ×8 (00:52→21:02)
[2022-02-14] MEDS: SODIUM CHLORIDE 1,000 ML IV SCH (07:00)
[2022-02-14 07:36] LABS: HEMATOCRIT 30.2 % (35.4-49); HEMOGLOBIN 10.3 GM/dL (11.7-16.9); MCH 26.2 pg (25.7-33.7); MCHC 34.1 g/dl (32.0-35.9); MEAN CELL VOLUME 76.9 fl (80-96); MEAN PLT VOLUME 8.1 fl (7.5-11.1); PLATELET COUNT 161 10^3/uL (134-434); RBC 3.93 M/mm3 (4.00-5.60); RDW 15.9 % (11.9-15.9); WHITE BLOOD COUNT 8.1 K/mm3 (4.0-10.0)
[2022-02-14 07:54] LABS: CHLORIDE 98 mmol/L (98-107); SODIUM 137 mmol/L (136-145)
[2022-02-14 07:58] LABS: ALBUMIN 1.7 g/dl (3.4-5.0); ANION GAP 12 MMOL/L (8-16); BLOOD UREA NITROGEN 70.4 mg/dL (7-18); CALCIUM 8.1 mg/dL (8.5-10.1); CO2 27 mmol/L (21-32); GLUCOSE,RANDOM 108 mg/dL (74-106); MAGNESIUM 2.4 mg/dL (1.8-2.4)
[2022-02-14 08:00] LABS: ALBUMIN 1.7 g/dl (3.4-5.0)
[2022-02-14 08:01] LABS: SGOT/AST 34 U/L (15-37); SGPT/ALT 25 U/L (13-61)
[2022-02-14 08:02] LABS: BILIRUBIN,DIRECT 3.6 mg/dL (0.0-0.2)
[2022-02-14 08:03] LABS: BILIRUBIN,TOTAL 6.4 mg/dL (0.2-1); TOT PROT 5.8 g/dl (6.4-8.2)
[2022-02-14 08:04] LABS: BILIRUBIN,TOTAL 6.3 mg/dL (0.2-1); TOT PROT 5.8 g/dl (6.4-8.2)
[2022-02-14 08:08] LABS: ALK PHOS 71 U/L (45-117); CREATININE 8.2 mg/dL (0.55-1.3)
[2022-02-14 08:16] LABS: INR 1.32 (0.83-1.09); PROTHROMBIN TIME (PATIENT) 15.2 SEC (9.7-13.0)
[2022-02-14] MEDS: HEPARIN NA (PORCINE) 5,000 UNITS/ML 1ML VIAL SQ SCH ×3 (09:00→21:02)
[2022-02-14] MEDS ORDERED: SODIUM ZIRCONIUM CYCLOSILICATE (LOKELMA) 5 GM PACKET PO SCH (10:00)
[2022-02-14] MEDS ORDERED: LIDOCAINE 5% TOPICAL PATCH TP SCH (10:00)
[2022-02-14] MEDS ORDERED: NIFEdipine E.R 60 MG TABLET PO SCH (10:00)
[2022-02-14] MEDS ORDERED: ATENOLOL 25 MG TABLET (FP) PO SCH (10:00)
[2022-02-14] MEDS ORDERED: TORSEMIDE 20 MG TABLET (FP) PO SCH (10:00)
[2022-02-14] MEDS: SODIUM ZIRCONIUM CYCLOSILICATE (LOKELMA) 5 GM PACKET PO SCH (10:03)
[2022-02-14] MEDS: NIFEdipine E.R 60 MG TABLET PO SCH (10:05)
[2022-02-14] MEDS: ATENOLOL 25 MG TABLET (FP) PO SCH (10:07)
[2022-02-14] MEDS: TORSEMIDE 20 MG TABLET (FP) PO SCH (10:15)
[2022-02-14 10:22] LABS: ANISOCYTOSIS 0; HELMET CELLS 0; HOWELL-JOLLY BODIES 0; MACROCYTOSIS 0; OVALOCYTE 0; ROULEAU 0; SICKELED CELLS 0; TARGET CELLS 0; TEAR DROP CELLS 0; TOXIC GRANULATION 0
[2022-02-14] MEDS: LIDOCAINE 5% TOPICAL PATCH TP SCH (13:12)
[2022-02-14] MEDS ORDERED: SODIUM CHLORIDE 250 ML IV PRN (13:24)
[2022-02-14] MEDS ORDERED: SENNOSIDES 8.6MG TABLET (FP) PO PRN (15:57)
[2022-02-14] MEDS ORDERED: SODIUM ZIRCONIUM CYCLOSILICATE (LOKELMA) 5 GM PACKET PO ONE (16:00)
[2022-02-14] MEDS: LIDOCAINE PATCH REMOVAL MC SCH (21:03)
[2022-02-14] MEDS ORDERED: CHLORHEXIDINE GLUCONATE 4% CLEANSER FOR DECOLONIZATION TP SCH (22:00)
[2022-02-15] MEDS: SODIUM CHLORIDE 1,000 ML IV SCH ×3 (00:59→22:32)
[2022-02-15] MEDS: NAFCILLIN - 2 GM in DEXTROSE 5%-WATER 100 ML IVPB SCH ×6 (01:00→23:44)
[2022-02-15] MEDS: HEPARIN NA (PORCINE) 5,000 UNITS/ML 1ML VIAL SQ SCH ×3 (05:36→22:31)
[2022-02-15] MEDS: DOCUSATE SODIUM 100 MG CAPSULE (FP) PO SCH ×3 (05:36→22:31)
[2022-02-15] MEDS: INSULIN SLIDING SCALE (NOVOLOG) 1 VIAL SQ SCH ×4 (05:59→22:32)
[2022-02-15] MEDS: TORSEMIDE 20 MG TABLET (FP) PO SCH (09:11)
[2022-02-15] MEDS: SODIUM ZIRCONIUM CYCLOSILICATE (LOKELMA) 5 GM PACKET PO SCH (09:11)
[2022-02-15] MEDS: NIFEdipine E.R 60 MG TABLET PO SCH (09:12)
[2022-02-15] MEDS: MUPIROCIN 2% TOPICAL OINTMENT FOR DECOLONIZATION NS SCH ×2 (09:13→22:02)
[2022-02-15] MEDS: LIDOCAINE 5% TOPICAL PATCH TP SCH (09:13)
[2022-02-15] MEDS: ATENOLOL 25 MG TABLET (FP) PO SCH (09:13)
[2022-02-15] MEDS ORDERED: SODIUM CHLORIDE 250 ML IV PRN (12:34)
[2022-02-15 16:06] LABS: HEMATOCRIT 25.9 % (35.4-49); HEMOGLOBIN 8.6 GM/dL (11.7-16.9); MCH 26.2 pg (25.7-33.7); MCHC 33.3 g/dl (32.0-35.9); MEAN CELL VOLUME 78.5 fl (80-96); MEAN PLT VOLUME 7.6 fl (7.5-11.1); PLATELET COUNT 150 10^3/uL (134-434); RBC 3.29 M/mm3 (4.00-5.60); RDW 16.8 % (11.9-15.9); WHITE BLOOD COUNT 7.8 K/mm3 (4.0-10.0)
[2022-02-15 16:27] LABS: CHLORIDE 95 mmol/L (98-107); SODIUM 136 mmol/L (136-145)
[2022-02-15 16:28] LABS: CHLORIDE 95 mmol/L (98-107); SODIUM 135 mmol/L (136-145)
[2022-02-15 16:29] LABS: CALCIUM 7.9 mg/dL (8.5-10.1)
[2022-02-15 16:30] LABS: ALBUMIN 1.6 g/dl (3.4-5.0); ANION GAP 13 MMOL/L (8-16); BLOOD UREA NITROGEN 63.5 mg/dL (7-18); CO2 28 mmol/L (21-32); GLUCOSE,RANDOM 126 mg/dL (74-106)
[2022-02-15 16:32] LABS: BILIRUBIN,DIRECT 2.7 mg/dL (0.0-0.2); CALCIUM 8.1 mg/dL (8.5-10.1)
[2022-02-15 16:33] LABS: ALBUMIN 1.6 g/dl (3.4-5.0); ANION GAP 12 MMOL/L (8-16); BLOOD UREA NITROGEN 61.2 mg/dL (7-18); CO2 28 mmol/L (21-32); CREATININE 7.9 mg/dL (0.55-1.3); GLUCOSE,RANDOM 129 mg/dL (74-106); MAGNESIUM 2.4 mg/dL (1.8-2.4)
[2022-02-15 16:34] LABS: BILIRUBIN,TOTAL 5.9 mg/dL (0.2-1); TOT PROT 6.2 g/dl (6.4-8.2)
[2022-02-15 16:36] LABS: SGOT/AST 29 U/L (15-37); SGPT/ALT 11 U/L (13-61)
[2022-02-15 16:37] LABS: BILIRUBIN,TOTAL 5.8 mg/dL (0.2-1); TOT PROT 6.1 g/dl (6.4-8.2)
[2022-02-15 16:39] LABS: ALK PHOS 65 U/L (45-117)
[2022-02-15 16:42] LABS: CREATININE 7.5 mg/dL (0.55-1.3)
[2022-02-15 19:28] LABS: ANISOCYTOSIS 0; HELMET CELLS 0; HOWELL-JOLLY BODIES 0; MACROCYTOSIS 0; OVALOCYTE 0; ROULEAU 0; SICKELED CELLS 0; TARGET CELLS 0; TEAR DROP CELLS 0; TOXIC GRANULATION 0
[2022-02-15] MEDS: HYDROmorphone *PCA* 10MG/50ML DISP.SYRIN PCA SCH ×2 (21:24→22:32)
[2022-02-15] MEDS: LIDOCAINE PATCH REMOVAL MC SCH (22:02)
[2022-02-15] MEDS: CHLORHEXIDINE GLUCONATE 4% CLEANSER FOR DECOLONIZATION TP SCH (22:03)
[2022-02-16] MEDS: NAFCILLIN - 2 GM in DEXTROSE 5%-WATER 100 ML IVPB SCH ×6 (01:26→21:56)
[2022-02-16] MEDS: HEPARIN NA (PORCINE) 5,000 UNITS/ML 1ML VIAL SQ SCH ×3 (06:19→21:57)
[2022-02-16] MEDS: DOCUSATE SODIUM 100 MG CAPSULE (FP) PO SCH ×3 (06:19→21:57)
[2022-02-16] MEDS: INSULIN SLIDING SCALE (NOVOLOG) 1 VIAL SQ SCH ×4 (06:42→22:17)
[2022-02-16 07:22] LABS: HEMATOCRIT 24.8 % (35.4-49); HEMOGLOBIN 8.5 GM/dL (11.7-16.9); MCH 26.6 pg (25.7-33.7); MCHC 34.4 g/dl (32.0-35.9); MEAN CELL VOLUME 77.4 fl (80-96); MEAN PLT VOLUME 7.8 fl (7.5-11.1); PLATELET COUNT 173 10^3/uL (134-434); RDW 16.6 % (11.9-15.9); WHITE BLOOD COUNT 6.5 K/mm3 (4.0-10.0)
[2022-02-16 07:30] LABS: INR 2.01 (0.83-1.09); PROTHROMBIN TIME (PATIENT) 23.3 SEC (9.7-13.0)
[2022-02-16 07:33] LABS: ACTIVATED PTT 35.9 SECONDS (25.2-36.5)
[2022-02-16 08:40] LABS: ALBUMIN 1.5 g/dl (3.4-5.0); ALK PHOS 61 U/L (45-117); ANION GAP 14 MMOL/L (8-16); BLOOD UREA NITROGEN 56.8 mg/dL (7-18); CALCIUM 8.1 mg/dL (8.5-10.1); CHLORIDE 95 mmol/L (98-107); CO2 26 mmol/L (21-32); GLUCOSE,RANDOM 123 mg/dL (74-106); SGOT/AST 26 U/L (15-37); SGPT/ALT 7 U/L (13-61); SODIUM 135 mmol/L (136-145)
[2022-02-16] MEDS: TORSEMIDE 20 MG TABLET (FP) PO SCH (09:57)
[2022-02-16] MEDS: LIDOCAINE 5% TOPICAL PATCH TP SCH (09:57)
[2022-02-16] MEDS: SODIUM ZIRCONIUM CYCLOSILICATE (LOKELMA) 5 GM PACKET PO SCH (09:57)
[2022-02-16] MEDS: ATENOLOL 25 MG TABLET (FP) PO SCH (09:58)
[2022-02-16] MEDS: NIFEdipine E.R 60 MG TABLET PO SCH (09:58)
[2022-02-16] MEDS: MUPIROCIN 2% TOPICAL OINTMENT FOR DECOLONIZATION NS SCH (09:58)
[2022-02-16] MEDS ORDERED: ALLOPURINOL 100 MG TABLET (FP) PO SCH (10:00)
[2022-02-16] MEDS ORDERED: PATIENT'S OWN MEDICATION (NON-FORMULARY) (Relugolix [Orgovyx] 120 MG Tablet) PO SCH (10:00)
[2022-02-16] MEDS ORDERED: ACETAMINOPHEN 500 MG TABLET (FP) PO PRN ×2 (12:46→16:46)
[2022-02-16] MEDS ORDERED: oxyCODONE HCL 5 MG TABLET PO PRN (12:47)
[2022-02-16 14:19] VITALS: BMI 35.5
[2022-02-16] MEDS ORDERED: SENNOSIDES 8.6MG TABLET (FP) PO PRN (16:46)
[2022-02-16] MEDS ORDERED: ONDANSETRON 4 MG/2 ML VIAL IVPUSH PRN (16:46)
[2022-02-16] MEDS ORDERED: SODIUM CHLORIDE 250 ML IV PRN (16:46)
[2022-02-16] MEDS ORDERED: PHYTONADIONE 10 MG/1 ML AMP IVPB ONE (17:52)
[2022-02-16] MEDS: LIDOCAINE PATCH REMOVAL MC SCH (21:58)
[2022-02-16] MEDS ORDERED: CHLORHEXIDINE GLUCONATE 4% CLEANSER FOR DECOLONIZATION TP SCH (22:00)
[2022-02-16] MEDS ORDERED: MUPIROCIN 2% TOPICAL OINTMENT FOR DECOLONIZATION NS SCH (22:00)
[2022-02-17] MEDS: NAFCILLIN - 2 GM in DEXTROSE 5%-WATER 100 ML IVPB SCH ×6 (02:29→22:35)
[2022-02-17] MEDS: HEPARIN NA (PORCINE) 5,000 UNITS/ML 1ML VIAL SQ SCH ×3 (06:04→22:36)
[2022-02-17] MEDS: DOCUSATE SODIUM 100 MG CAPSULE (FP) PO SCH ×3 (06:04→22:37)
[2022-02-17] MEDS: INSULIN SLIDING SCALE (NOVOLOG) 1 VIAL SQ SCH ×4 (06:19→22:36)
[2022-02-17] MEDS: TORSEMIDE 20 MG TABLET (FP) PO SCH (09:27)
[2022-02-17] MEDS: ATENOLOL 25 MG TABLET (FP) PO SCH (09:27)
[2022-02-17] MEDS: ALLOPURINOL 100 MG TABLET (FP) PO SCH (09:27)
[2022-02-17] MEDS: NIFEdipine E.R 60 MG TABLET PO SCH (09:27)
[2022-02-17] MEDS: LIDOCAINE 5% TOPICAL PATCH TP SCH (09:28)
[2022-02-17] MEDS ORDERED: SODIUM ZIRCONIUM CYCLOSILICATE (LOKELMA) 5 GM PACKET PO SCH ×2 (10:00→13:00)
[2022-02-17] MEDS ORDERED: RELUGOLIX 120 MG PO SCH (10:00)
[2022-02-17 10:34] LABS: INR 1.33 (0.83-1.09); PROTHROMBIN TIME (PATIENT) 15.3 SEC (9.7-13.0)
[2022-02-17 10:51] LABS: ALBUMIN 1.4 g/dl (3.4-5.0)
[2022-02-17 10:54] LABS: BILIRUBIN,DIRECT 0.6 mg/dL (0.0-0.2); SGOT/AST 42 U/L (15-37); SGPT/ALT < 6 U/L (13-61)
[2022-02-17 10:56] LABS: ALK PHOS 69 U/L (45-117); BILIRUBIN,TOTAL 4.4 mg/dL (0.2-1); TOT PROT 6.6 g/dl (6.4-8.2)
[2022-02-17] MEDS ORDERED: SODIUM CHLORIDE 250 ML IV PRN (11:03)
[2022-02-17 11:13] LABS: CHLORIDE 96 mmol/L (98-107); SODIUM 133 mmol/L (136-145)
[2022-02-17 11:15] LABS: CALCIUM 7.9 mg/dL (8.5-10.1)
[2022-02-17 11:16] LABS: CO2 20 mmol/L (21-32); GLUCOSE,RANDOM 101 mg/dL (74-106)
[2022-02-17 11:23] LABS: ANION GAP 17 MMOL/L (8-16); CREATININE 9.6 mg/dL (0.55-1.3)
[2022-02-17] MEDS ORDERED: SODIUM ZIRCONIUM CYCLOSILICATE (LOKELMA) 10 GM PACKET PO SCH (13:40)
[2022-02-17] MEDS: oxyCODONE HCL 5 MG TABLET PO PRN (17:45)
[2022-02-17] MEDS: SODIUM ZIRCONIUM CYCLOSILICATE (LOKELMA) 10 GM PACKET PO SCH (22:36)
[2022-02-17] MEDS: LIDOCAINE PATCH REMOVAL MC SCH (22:36)
[2022-02-18] MEDS: NAFCILLIN - 2 GM in DEXTROSE 5%-WATER 100 ML IVPB SCH ×6 (02:31→21:24)
[2022-02-18] MEDS: HEPARIN NA (PORCINE) 5,000 UNITS/ML 1ML VIAL SQ SCH ×3 (06:21→21:24)
[2022-02-18] MEDS: DOCUSATE SODIUM 100 MG CAPSULE (FP) PO SCH ×4 (06:21→21:28)
[2022-02-18] MEDS: INSULIN SLIDING SCALE (NOVOLOG) 1 VIAL SQ SCH ×4 (07:10→21:22)
[2022-02-18] MEDS: oxyCODONE HCL 5 MG TABLET PO PRN ×2 (08:51→17:21)
[2022-02-18] MEDS ORDERED: PROPOFOL 20 ML ONE ×2 (09:23→10:11)
[2022-02-18] MEDS ORDERED: MIDAZOLAM HCL 2 MG/2 ML SINGLE DOSE VIAL ONE (09:23)
[2022-02-18] MEDS ORDERED: ceFAZolin SODIUM 1 GM VIAL ONE (09:23)
[2022-02-18] MEDS ORDERED: LIDOCAINE HCL/PF 2% SDV 5ML VIAL ONE (09:23)
[2022-02-18] MEDS ORDERED: LIDOCAINE HCL 1%, 10 MG/ML (20ML VIAL) ONE (10:02)
[2022-02-18] MEDS ORDERED: HEPARIN NA (PORCINE) 5,000 UNITS/ML 1ML VIAL ONE (10:03)
[2022-02-18] MEDS ORDERED: SODIUM CHLORIDE 0.9% P/F 10 ML VIAL IJ ONE (10:11)
[2022-02-18] MEDS ORDERED: ceFAZolin SODIUM 1 GM VIAL IVPB ONE (10:26)
[2022-02-18] MEDS ORDERED: LIDOCAINE HCL 1%, 10 MG/ML (20ML VIAL) NR ONE (10:32)
[2022-02-18] MEDS ORDERED: ONDANSETRON 4 MG/2 ML VIAL ONE (10:35)
[2022-02-18] MEDS ORDERED: ONDANSETRON 4 MG/2 ML VIAL IVPUSH PRN ×2 (10:58→11:30)
[2022-02-18] MEDS ORDERED: ACETAMINOPHEN 500 MG TABLET (FP) PO PRN (11:30)
[2022-02-18] MEDS ORDERED: SENNOSIDES 8.6MG TABLET (FP) PO PRN (11:30)
[2022-02-18 13:32] LABS: HEMATOCRIT 22.6 % (35.4-49); HEMOGLOBIN 7.7 GM/dL (11.7-16.9); MCH 26.7 pg (25.7-33.7); MCHC 34.1 g/dl (32.0-35.9); MEAN CELL VOLUME 78.3 fl (80-96); MEAN PLT VOLUME 7.5 fl (7.5-11.1); PLATELET COUNT 196 10^3/uL (134-434); RBC 2.89 M/mm3 (4.00-5.60); WHITE BLOOD COUNT 5.8 K/mm3 (4.0-10.0)
[2022-02-18 13:56] LABS: CHLORIDE 95 mmol/L (98-107); SODIUM 136 mmol/L (136-145)
[2022-02-18 13:58] LABS: ALBUMIN 1.4 g/dl (3.4-5.0); ANION GAP 19 MMOL/L (8-16); BLOOD UREA NITROGEN 81.8 mg/dL (7-18); CALCIUM 8.1 mg/dL (8.5-10.1); CO2 22 mmol/L (21-32); GLUCOSE,RANDOM 92 mg/dL (74-106)
[2022-02-18 14:01] LABS: SGOT/AST 19 U/L (15-37); SGPT/ALT < 6 U/L (13-61)
[2022-02-18 14:03] LABS: BILIRUBIN,TOTAL 3.4 mg/dL (0.2-1); TOT PROT 6.2 g/dl (6.4-8.2)
[2022-02-18 14:04] LABS: ALK PHOS 61 U/L (45-117)
[2022-02-18] MEDS: LIDOCAINE 5% TOPICAL PATCH TP SCH (14:04)
[2022-02-18] MEDS: TORSEMIDE 20 MG TABLET (FP) PO SCH ×2 (14:04→17:08)
[2022-02-18 14:05] LABS: CREATININE 10.7 mg/dL (0.55-1.3)
[2022-02-18] MEDS: SODIUM ZIRCONIUM CYCLOSILICATE (LOKELMA) 10 GM PACKET PO SCH ×2 (14:08→21:22)
[2022-02-18] MEDS: NIFEdipine E.R 60 MG TABLET PO SCH ×2 (14:08→17:08)
[2022-02-18] MEDS: ALLOPURINOL 100 MG TABLET (FP) PO SCH ×2 (14:08→17:07)
[2022-02-18] MEDS: ATENOLOL 25 MG TABLET (FP) PO SCH ×2 (14:08→17:08)
[2022-02-18] MEDS ORDERED: SODIUM CHLORIDE 250 ML IV PRN ×2 (14:50→14:52)
[2022-02-18] MEDS ORDERED: EPOETIN ALFA-EPBX 20,000 UNIT/ML VIAL IVPUSH ONE (15:20)
[2022-02-18] MEDS: SODIUM CHLORIDE 1,000 ML IV SCH (16:39)
[2022-02-18] MEDS: LIDOCAINE PATCH REMOVAL MC SCH (21:22)
[2022-02-19] MEDS: NAFCILLIN - 2 GM in DEXTROSE 5%-WATER 100 ML IVPB SCH ×6 (02:03→21:56)
[2022-02-19] MEDS: HEPARIN NA (PORCINE) 5,000 UNITS/ML 1ML VIAL SQ SCH ×3 (07:15→21:56)
[2022-02-19] MEDS: DOCUSATE SODIUM 100 MG CAPSULE (FP) PO SCH ×2 (07:16→13:58)
[2022-02-19] MEDS: INSULIN SLIDING SCALE (NOVOLOG) 1 VIAL SQ SCH ×4 (07:25→22:14)
[2022-02-19] MEDS: LIDOCAINE 5% TOPICAL PATCH TP SCH (09:19)
[2022-02-19] MEDS: ALLOPURINOL 100 MG TABLET (FP) PO SCH (09:21)
[2022-02-19] MEDS: TORSEMIDE 20 MG TABLET (FP) PO SCH (09:24)
[2022-02-19] MEDS: SODIUM ZIRCONIUM CYCLOSILICATE (LOKELMA) 10 GM PACKET PO SCH ×2 (09:24→21:56)
[2022-02-19] MEDS: oxyCODONE HCL 5 MG TABLET PO PRN ×2 (09:24→22:13)
[2022-02-19] MEDS: NIFEdipine E.R 60 MG TABLET PO SCH (09:24)
[2022-02-19] MEDS: ATENOLOL 25 MG TABLET (FP) PO SCH (09:24)
[2022-02-19 09:44] LABS: BASO % 0.6 % (0-2.0); EOS % 1.3 % (0-4.5); HEMATOCRIT 23.4 % (35.4-49); HEMOGLOBIN 7.8 GM/dL (11.7-16.9); LYMPH % 9.1 % (8-40); MCH 26.3 pg (25.7-33.7); MCHC 33.5 g/dl (32.0-35.9); MEAN CELL VOLUME 78.6 fl (80-96); MEAN PLT VOLUME 7.1 fl (7.5-11.1); PLATELET COUNT 211 10^3/uL (134-434); RBC 2.98 M/mm3 (4.00-5.60); RDW 17.1 % (11.9-15.9); WHITE BLOOD COUNT 5.6 K/mm3 (4.0-10.0)
[2022-02-19 09:45] LABS: BILIRUBIN,DIRECT 0.9 mg/dL (0.0-0.2)
[2022-02-19 10:13] LABS: CHLORIDE 97 mmol/L (98-107); SODIUM 136 mmol/L (136-145)
[2022-02-19 10:16] LABS: ANION GAP 10 MMOL/L (8-16); CO2 29 mmol/L (21-32); GLUCOSE,RANDOM 104 mg/dL (74-106); MAGNESIUM 2.1 mg/dL (1.8-2.4)
[2022-02-19 10:18] LABS: ALBUMIN 1.4 g/dl (3.4-5.0)
[2022-02-19 10:19] LABS: BILIRUBIN,DIRECT 0.8 mg/dL (0.0-0.2); CREATININE 7.3 mg/dL (0.55-1.3); SGOT/AST 20 U/L (15-37)
[2022-02-19 10:21] LABS: ALK PHOS 64 U/L (45-117); BILIRUBIN,TOTAL 2.9 mg/dL (0.2-1); TOT PROT 6.5 g/dl (6.4-8.2)
[2022-02-19 10:23] LABS: BLOOD UREA NITROGEN 41.4 mg/dL (7-18); SGPT/ALT < 6 U/L (13-61)
[2022-02-19] MEDS: SODIUM CHLORIDE 1,000 ML IV SCH (18:00)
[2022-02-19] MEDS: LIDOCAINE PATCH REMOVAL MC SCH (21:57)
[2022-02-20] MEDS: SODIUM CHLORIDE 1,000 ML IV SCH ×2 (01:26→11:20)
[2022-02-20] MEDS: NAFCILLIN - 2 GM in DEXTROSE 5%-WATER 100 ML IVPB SCH ×6 (01:26→22:23)
[2022-02-20] MEDS: HEPARIN NA (PORCINE) 5,000 UNITS/ML 1ML VIAL SQ SCH ×3 (05:33→22:22)
[2022-02-20] MEDS: INSULIN SLIDING SCALE (NOVOLOG) 1 VIAL SQ SCH ×4 (06:43→22:23)
[2022-02-20] MEDS: oxyCODONE HCL 5 MG TABLET PO PRN ×2 (09:27→17:58)
[2022-02-20] MEDS: LIDOCAINE 5% TOPICAL PATCH TP SCH (09:29)
[2022-02-20 09:41] LABS: BASO % 0.8 % (0-2.0); EOS % 1.6 % (0-4.5); HEMATOCRIT 22.2 % (35.4-49); HEMOGLOBIN 7.6 GM/dL (11.7-16.9); LYMPH % 9.8 % (8-40); MCHC 34.3 g/dl (32.0-35.9); MEAN CELL VOLUME 78.7 fl (80-96); MEAN PLT VOLUME 7.4 fl (7.5-11.1); MONO % 6.2 % (3.8-10.2); NEUT % 81.6 % (42.8-82.8); PLATELET COUNT 201 10^3/uL (134-434); RBC 2.81 M/mm3 (4.00-5.60); RDW 16.9 % (11.9-15.9); WHITE BLOOD COUNT 5.2 K/mm3 (4.0-10.0)
[2022-02-20 09:58] LABS: CHLORIDE 96 mmol/L (98-107); SODIUM 135 mmol/L (136-145)
[2022-02-20 10:00] LABS: ALBUMIN 1.4 g/dl (3.4-5.0); ANION GAP 11 MMOL/L (8-16); CALCIUM 8.3 mg/dL (8.5-10.1); CO2 28 mmol/L (21-32)
[2022-02-20 10:01] LABS: BLOOD UREA NITROGEN 49.2 mg/dL (7-18); GLUCOSE,RANDOM 95 mg/dL (74-106)
[2022-02-20 10:03] LABS: MAGNESIUM 2.2 mg/dL (1.8-2.4)
[2022-02-20 10:04] LABS: SGOT/AST 16 U/L (15-37)
[2022-02-20 10:05] LABS: BILIRUBIN,TOTAL 2.7 mg/dL (0.2-1); TOT PROT 6.4 g/dl (6.4-8.2)
[2022-02-20 10:06] LABS: ALK PHOS 64 U/L (45-117)
[2022-02-20 10:08] LABS: CREATININE 8.6 mg/dL (0.55-1.3); SGPT/ALT < 6 U/L (13-61)
[2022-02-20] MEDS ORDERED: SODIUM CHLORIDE 250 ML IV PRN (11:14)
[2022-02-20] MEDS ORDERED: EPOETIN ALFA-EPBX 20,000 UNIT/ML VIAL IVPUSH ONE (11:15)
[2022-02-20] MEDS: NIFEdipine E.R 60 MG TABLET PO SCH (12:28)
[2022-02-20] MEDS: SODIUM ZIRCONIUM CYCLOSILICATE (LOKELMA) 10 GM PACKET PO SCH ×2 (12:28→22:11)
[2022-02-20] MEDS: TORSEMIDE 20 MG TABLET (FP) PO SCH (12:28)
[2022-02-20] MEDS: ALLOPURINOL 100 MG TABLET (FP) PO SCH (12:30)
[2022-02-20] MEDS: ATENOLOL 25 MG TABLET (FP) PO SCH (12:32)
[2022-02-20] MEDS: LIDOCAINE PATCH REMOVAL MC SCH (22:22)
[2022-02-21] MEDS: NAFCILLIN - 2 GM in DEXTROSE 5%-WATER 100 ML IVPB SCH ×6 (01:55→21:25)
[2022-02-21] MEDS: HEPARIN NA (PORCINE) 5,000 UNITS/ML 1ML VIAL SQ SCH ×3 (07:01→21:25)
[2022-02-21] MEDS: oxyCODONE HCL 5 MG TABLET PO PRN ×2 (07:02→20:26)
[2022-02-21] MEDS: INSULIN SLIDING SCALE (NOVOLOG) 1 VIAL SQ SCH ×3 (07:02→17:08)
[2022-02-21 10:03] LABS: BASO % 1.1 % (0-2.0); EOS % 1.5 % (0-4.5); HEMATOCRIT 20.6 % (35.4-49); HEMOGLOBIN 7.1 GM/dL (11.7-16.9); LYMPH % 9.3 % (8-40); MCH 27.2 pg (25.7-33.7); MCHC 34.3 g/dl (32.0-35.9); MEAN CELL VOLUME 79.4 fl (80-96); MEAN PLT VOLUME 7.8 fl (7.5-11.1); MONO % 8.9 % (3.8-10.2); NEUT % 79.2 % (42.8-82.8); PLATELET COUNT 211 10^3/uL (134-434); RBC 2.59 M/mm3 (4.00-5.60); RDW 17.4 % (11.9-15.9); WHITE BLOOD COUNT 4.9 K/mm3 (4.0-10.0)
[2022-02-21] MEDS: TORSEMIDE 20 MG TABLET (FP) PO SCH (10:16)
[2022-02-21] MEDS: LIDOCAINE 5% TOPICAL PATCH TP SCH (10:16)
[2022-02-21] MEDS: NIFEdipine E.R 60 MG TABLET PO SCH (10:16)
[2022-02-21] MEDS: ATENOLOL 25 MG TABLET (FP) PO SCH (10:16)
[2022-02-21] MEDS: SODIUM ZIRCONIUM CYCLOSILICATE (LOKELMA) 10 GM PACKET PO SCH ×2 (10:17→21:26)
[2022-02-21] MEDS: ALLOPURINOL 100 MG TABLET (FP) PO SCH (10:17)
[2022-02-21 10:23] LABS: CHLORIDE 98 mmol/L (98-107); SODIUM 137 mmol/L (136-145)
[2022-02-21 11:10] LABS: ALBUMIN 1.3 g/dl (3.4-5.0); ANION GAP 9 MMOL/L (8-16); BLOOD UREA NITROGEN 29.4 mg/dL (7-18); CALCIUM 7.9 mg/dL (8.5-10.1); CO2 30 mmol/L (21-32); GLUCOSE,RANDOM 93 mg/dL (74-106); MAGNESIUM 1.8 mg/dL (1.8-2.4)
[2022-02-21 11:13] LABS: CREATININE 6.3 mg/dL (0.55-1.3); SGOT/AST 17 U/L (15-37)
[2022-02-21 11:14] LABS: BILIRUBIN,TOTAL 2.3 mg/dL (0.2-1); TOT PROT 6.3 g/dl (6.4-8.2)
[2022-02-21 11:16] LABS: ALK PHOS 61 U/L (45-117)
[2022-02-21 11:18] LABS: SGPT/ALT < 6 U/L (13-61)
[2022-02-21] MEDS: SODIUM CHLORIDE 1,000 ML IV SCH (11:44)
[2022-02-21] MEDS: LIDOCAINE PATCH REMOVAL MC SCH (21:25)
[2022-02-21] MEDS: BACITRACIN ZINC 15 GM TUBE TOPICAL OINTMENT TP SCH (21:25)
[2022-02-22] MEDS: NAFCILLIN - 2 GM in DEXTROSE 5%-WATER 100 ML IVPB SCH ×3 (01:41→09:54)
[2022-02-22] MEDS: HEPARIN NA (PORCINE) 5,000 UNITS/ML 1ML VIAL SQ SCH ×3 (06:08→22:34)
[2022-02-22] MEDS: ATENOLOL 25 MG TABLET (FP) PO SCH (09:53)
[2022-02-22] MEDS: TORSEMIDE 20 MG TABLET (FP) PO SCH (09:53)
[2022-02-22] MEDS: LIDOCAINE 5% TOPICAL PATCH TP SCH (09:53)
[2022-02-22] MEDS: SODIUM ZIRCONIUM CYCLOSILICATE (LOKELMA) 10 GM PACKET PO SCH (09:54)
[2022-02-22] MEDS: BACITRACIN ZINC 15 GM TUBE TOPICAL OINTMENT TP SCH ×2 (09:54→22:45)
[2022-02-22] MEDS: ALLOPURINOL 100 MG TABLET (FP) PO SCH (09:54)
[2022-02-22] MEDS: NIFEdipine E.R 60 MG TABLET PO SCH (09:54)
[2022-02-22] MEDS ORDERED: VANCOMYCIN 1 GM/200 ML PREMIX BAG (RESTRICTED TO ID ONLY) IVPB ONE (12:30)
[2022-02-22] MEDS ORDERED: EPOETIN ALFA-EPBX 10,000 UNIT/ML VIAL SQ ONE (12:44)
[2022-02-22] MEDS ORDERED: HEPARIN NA (PORCINE) 5,000 UNITS/ML 1ML VIAL IVPUSH ONE (12:44)
[2022-02-22 13:47] LABS: HEMATOCRIT 21.5 % (35.4-49); HEMOGLOBIN 7.4 GM/dL (11.7-16.9); MCH 27.2 pg (25.7-33.7); MCHC 34.3 g/dl (32.0-35.9); MEAN CELL VOLUME 79.3 fl (80-96); MEAN PLT VOLUME 7.2 fl (7.5-11.1); PLATELET COUNT 234 10^3/uL (134-434); RBC 2.72 M/mm3 (4.00-5.60); RDW 17.6 % (11.9-15.9); WHITE BLOOD COUNT 5.2 K/mm3 (4.0-10.0)
[2022-02-22 14:13] LABS: CHLORIDE 96 mmol/L (98-107); SODIUM 136 mmol/L (136-145)
[2022-02-22 14:15] LABS: CALCIUM 8.2 mg/dL (8.5-10.1)
[2022-02-22 14:16] LABS: ALBUMIN 1.4 g/dl (3.4-5.0); ANION GAP 14 MMOL/L (8-16); CO2 25 mmol/L (21-32); GLUCOSE,RANDOM 103 mg/dL (74-106)
[2022-02-22 14:17] LABS: BLOOD UREA NITROGEN 38.7 mg/dL (7-18)
[2022-02-22 14:19] LABS: SGOT/AST 17 U/L (15-37); SGPT/ALT < 6 U/L (13-61)
[2022-02-22 14:21] LABS: BILIRUBIN,TOTAL 2.6 mg/dL (0.2-1); TOT PROT 6.8 g/dl (6.4-8.2)
[2022-02-22 14:22] LABS: ALK PHOS 65 U/L (45-117)
[2022-02-22 14:28] LABS: CREATININE 8.1 mg/dL (0.55-1.3)
[2022-02-22] MEDS ORDERED: SODIUM CHLORIDE 250 ML IV PRN (16:05)
[2022-02-22] MEDS ORDERED: EPOETIN ALFA-EPBX 20,000 UNIT/ML VIAL IVPUSH ONE (17:00)
[2022-02-22] MEDS: oxyCODONE HCL 5 MG TABLET PO PRN ×2 (18:27→22:34)
[2022-02-22] MEDS: LIDOCAINE PATCH REMOVAL MC SCH (22:45)
[2022-02-23] MEDS: HEPARIN NA (PORCINE) 5,000 UNITS/ML 1ML VIAL SQ SCH ×3 (05:23→22:11)
[2022-02-23] MEDS: oxyCODONE HCL 5 MG TABLET PO PRN ×3 (10:20→22:20)
[2022-02-23] MEDS: TORSEMIDE 20 MG TABLET (FP) PO SCH (10:20)
[2022-02-23] MEDS: ATENOLOL 25 MG TABLET (FP) PO SCH (10:22)
[2022-02-23] MEDS: NIFEdipine E.R 60 MG TABLET PO SCH (10:22)
[2022-02-23] MEDS: LIDOCAINE 5% TOPICAL PATCH TP SCH (10:23)
[2022-02-23] MEDS: BACITRACIN ZINC 15 GM TUBE TOPICAL OINTMENT TP SCH ×2 (10:23→22:11)
[2022-02-23] MEDS: ALLOPURINOL 100 MG TABLET (FP) PO SCH (10:23)
[2022-02-23] MEDS ORDERED: ceFAZolin 2 GRAM PREMIX BAG IVPB ONE (13:45)
[2022-02-23] MEDS ORDERED: CEFAZOLIN SODIUM 2 GM in DEXTROSE 5%-WATER 100 ML IVPB ONE (14:15)
[2022-02-23] MEDS: COLLAGENASE CLOSTRIDIUM HIST. 30 GRAMS TUBE TP SCH (17:18)
[2022-02-23] MEDS: LIDOCAINE PATCH REMOVAL MC SCH (22:11)
[2022-02-24] MEDS: HEPARIN NA (PORCINE) 5,000 UNITS/ML 1ML VIAL SQ SCH ×2 (05:41→14:24)
[2022-02-24 09:47] LABS: HEMATOCRIT 20.3 % (35.4-49); MCHC 33.6 g/dl (32.0-35.9); MEAN CELL VOLUME 80.2 fl (80-96); MEAN PLT VOLUME 7.5 fl (7.5-11.1); PLATELET COUNT 252 10^3/uL (134-434); RBC 2.53 M/mm3 (4.00-5.60); RDW 17.3 % (11.9-15.9)
[2022-02-24] MEDS ORDERED: SODIUM CHLORIDE 250 ML IV PRN (09:48)
[2022-02-24 09:52] LABS: HEMOGLOBIN 6.8 GM/dL (11.7-16.9)
[2022-02-24 10:00] LABS: CHLORIDE 96 mmol/L (98-107); SODIUM 138 mmol/L (136-145)
[2022-02-24] MEDS ORDERED: EPOETIN ALFA-EPBX 10,000 UNIT/ML VIAL IVPUSH ONE ×2 (10:00→10:45)
[2022-02-24 10:02] LABS: ANION GAP 12 MMOL/L (8-16); BLOOD UREA NITROGEN 35.5 mg/dL (7-18); CALCIUM 8.2 mg/dL (8.5-10.1); CO2 29 mmol/L (21-32); GLUCOSE,RANDOM 112 mg/dL (74-106)
[2022-02-24 10:06] LABS: PHOSPHOROUS 6.4 mg/dL (2.5-4.9)
[2022-02-24 10:09] LABS: CREATININE 7.6 mg/dL (0.55-1.3)
[2022-02-24] MEDS ORDERED: VANCOMYCIN/WATER FOR INJ (PEG) 1,000 MG/200 ML BAG IVPB ONE (10:30)
[2022-02-24] MEDS: ATENOLOL 25 MG TABLET (FP) PO SCH (14:24)
[2022-02-24] MEDS: oxyCODONE HCL 5 MG TABLET PO PRN ×2 (14:24→23:29)
[2022-02-24] MEDS: LIDOCAINE 5% TOPICAL PATCH TP SCH (14:25)
[2022-02-24] MEDS: NIFEdipine E.R 60 MG TABLET PO SCH (14:25)
[2022-02-24] MEDS: TORSEMIDE 20 MG TABLET (FP) PO SCH (14:25)
[2022-02-24] MEDS: COLLAGENASE CLOSTRIDIUM HIST. 30 GRAMS TUBE TP SCH (14:26)
[2022-02-24] MEDS: ALLOPURINOL 100 MG TABLET (FP) PO SCH (14:26)
[2022-02-24] MEDS: BACITRACIN ZINC 15 GM TUBE TOPICAL OINTMENT TP SCH ×2 (14:34→22:33)
[2022-02-24] MEDS ORDERED: INSULIN (NOVOLOG) ASPART 100 UNITS/ML 10ML VIAL ONE (17:28)
[2022-02-24] MEDS: PANTOPRAZOLE 40 MG TABLET PO SCH (18:13)
[2022-02-24] MEDS: APIXABAN 5 MG TABLET PO SCH (22:33)
[2022-02-24] MEDS: LIDOCAINE PATCH REMOVAL MC SCH (22:35)
[2022-02-25] MEDS: oxyCODONE HCL 5 MG TABLET PO PRN ×3 (04:14→22:59)
[2022-02-25] MEDS: BACITRACIN ZINC 15 GM TUBE TOPICAL OINTMENT TP SCH ×2 (10:00→22:37)
[2022-02-25] MEDS: APIXABAN 5 MG TABLET PO SCH ×2 (10:08→22:32)
[2022-02-25] MEDS: TORSEMIDE 20 MG TABLET (FP) PO SCH (10:08)
[2022-02-25] MEDS: ALLOPURINOL 100 MG TABLET (FP) PO SCH (10:08)
[2022-02-25] MEDS: PANTOPRAZOLE 40 MG TABLET PO SCH (10:08)
[2022-02-25] MEDS: NIFEdipine E.R 60 MG TABLET PO SCH (10:08)
[2022-02-25] MEDS: COLLAGENASE CLOSTRIDIUM HIST. 30 GRAMS TUBE TP SCH (10:09)
[2022-02-25] MEDS: LIDOCAINE 5% TOPICAL PATCH TP SCH (10:09)
[2022-02-25] MEDS: ATENOLOL 25 MG TABLET (FP) PO SCH (10:09)
[2022-02-25 10:56] LABS: BASO % 1.4 % (0-2.0); HEMATOCRIT 25.1 % (35.4-49); HEMOGLOBIN 8.3 GM/dL (11.7-16.9); LYMPH % 7.6 % (8-40); MCH 26.9 pg (25.7-33.7); MCHC 33.1 g/dl (32.0-35.9); MEAN CELL VOLUME 81.1 fl (80-96); MEAN PLT VOLUME 7.7 fl (7.5-11.1); MONO % 5.9 % (3.8-10.2); NEUT % 79.1 % (42.8-82.8); PLATELET COUNT 295 10^3/uL (134-434); RBC 3.09 M/mm3 (4.00-5.60); RDW 17.6 % (11.9-15.9); WHITE BLOOD COUNT 5.9 K/mm3 (4.0-10.0)
[2022-02-25 11:14] LABS: CHLORIDE 97 mmol/L (98-107); SODIUM 136 mmol/L (136-145)
[2022-02-25 11:19] LABS: CALCIUM 8.8 mg/dL (8.5-10.1)
[2022-02-25 11:20] LABS: BLOOD UREA NITROGEN 25.7 mg/dL (7-18); GLUCOSE,RANDOM 114 mg/dL (74-106)
[2022-02-25 11:22] LABS: ALBUMIN 1.5 g/dl (3.4-5.0); ANION GAP 8 MMOL/L (8-16); CO2 31 mmol/L (21-32)
[2022-02-25 11:23] LABS: CREATININE 5.8 mg/dL (0.55-1.3); SGOT/AST 24 U/L (15-37)
[2022-02-25 11:24] LABS: BILIRUBIN,TOTAL 1.9 mg/dL (0.2-1)
[2022-02-25 11:25] LABS: TOT PROT 7.5 g/dl (6.4-8.2)
[2022-02-25 11:26] LABS: ALK PHOS 69 U/L (45-117); SGPT/ALT < 6 U/L (13-61)
[2022-02-25] MEDS: LIDOCAINE PATCH REMOVAL MC SCH (22:39)
[2022-02-26] MEDS ORDERED: SODIUM CHLORIDE 250 ML IV PRN ×2 (08:03→10:28)
[2022-02-26] MEDS ORDERED: EPOETIN ALFA-EPBX 20,000 UNIT/ML VIAL IVPUSH ONE (09:00)
[2022-02-26 09:16] VITALS: RESP 18
[2022-02-26 09:41] LABS: MCH 27.7 pg (25.7-33.7); MCHC 33.7 g/dl (32.0-35.9); MEAN CELL VOLUME 82.2 fl (80-96); MEAN PLT VOLUME 7.7 fl (7.5-11.1); PLATELET COUNT 303 10^3/uL (134-434); RBC 2.43 M/mm3 (4.00-5.60); RDW 17.5 % (11.9-15.9); WHITE BLOOD COUNT 5.6 K/mm3 (4.0-10.0)
[2022-02-26 09:57] LABS: CHLORIDE 96 mmol/L (98-107); SODIUM 134 mmol/L (136-145)
[2022-02-26 09:59] LABS: CALCIUM 8.4 mg/dL (8.5-10.1); GLUCOSE,RANDOM 105 mg/dL (74-106); HEMOGLOBIN 6.7 GM/dL (11.7-16.9)
[2022-02-26 10:00] LABS: ALBUMIN 1.4 g/dl (3.4-5.0); ANION GAP 5 MMOL/L (8-16); BLOOD UREA NITROGEN 39.8 mg/dL (7-18); CO2 32 mmol/L (21-32)
[2022-02-26] MEDS ORDERED: VANCOMYCIN 1 GM PREMIX - 1 GM/200 ML BAG IVPB ONE (10:00)
[2022-02-26] MEDS ORDERED: VANCOMYCIN 1 GRAM (PRE-DOCKED) 1,000 MG/250 ML BAG IVPB ONE (10:00)
[2022-02-26 10:02] LABS: PHOSPHOROUS 4.8 mg/dL (2.5-4.9)
[2022-02-26 10:03] LABS: CREATININE 7.4 mg/dL (0.55-1.3); SGOT/AST 17 U/L (15-37)
[2022-02-26 10:04] LABS: BILIRUBIN,TOTAL 1.9 mg/dL (0.2-1); TOT PROT 6.8 g/dl (6.4-8.2)
[2022-02-26 10:05] LABS: ALK PHOS 62 U/L (45-117)
[2022-02-26 10:06] LABS: SGPT/ALT < 6 U/L (13-61)
[2022-02-26 10:24] LABS: HEMATOCRIT 20.5 % (35.4-49); MCH 27.5 pg (25.7-33.7); MCHC 33.5 g/dl (32.0-35.9); MEAN CELL VOLUME 82.1 fl (80-96); MEAN PLT VOLUME 7.1 fl (7.5-11.1); PLATELET COUNT 286 10^3/uL (134-434); RDW 17.8 % (11.9-15.9); WHITE BLOOD COUNT 5.7 K/mm3 (4.0-10.0)
[2022-02-26 10:28] LABS: HEMOGLOBIN 6.9 GM/dL (11.7-16.9)
[2022-02-26] MEDS: BACITRACIN ZINC 15 GM TUBE TOPICAL OINTMENT TP SCH ×2 (12:05→21:43)
[2022-02-26] MEDS: APIXABAN 5 MG TABLET PO SCH ×2 (12:06→21:42)
[2022-02-26] MEDS: TORSEMIDE 20 MG TABLET (FP) PO SCH (12:06)
[2022-02-26] MEDS: LIDOCAINE 5% TOPICAL PATCH TP SCH (12:06)
[2022-02-26] MEDS: ALLOPURINOL 100 MG TABLET (FP) PO SCH (12:07)
[2022-02-26] MEDS: ATENOLOL 25 MG TABLET (FP) PO SCH (12:07)
[2022-02-26] MEDS: PANTOPRAZOLE 40 MG TABLET PO SCH (12:07)
[2022-02-26] MEDS: COLLAGENASE CLOSTRIDIUM HIST. 30 GRAMS TUBE TP SCH (12:07)
[2022-02-26] MEDS: NIFEdipine E.R 60 MG TABLET PO SCH (12:07)
[2022-02-26] MEDS: oxyCODONE HCL 5 MG TABLET PO PRN ×2 (13:21→21:42)
[2022-02-26] MEDS: LIDOCAINE PATCH REMOVAL MC SCH (21:46)
[2022-02-27 00:06] LABS: HCV ALPHA 2 MACRO CHART 91 mg/dL (110-276); NECRO.INFLAM ACT.SCORE 0.04 (0.00-0.17); NECROINFLAM. ACTIVITY GRADE A0-No activity (.)
[2022-02-27 06:44] VITALS: BP 148/77; PULSE 81; TEMP 99.4
[2022-02-27] MEDS: oxyCODONE HCL 5 MG TABLET PO PRN (08:43)
[2022-02-27 09:32] LABS: EOS % 5.6 % (0-4.5); HEMATOCRIT 24.2 % (35.4-49); HEMOGLOBIN 8.1 GM/dL (11.7-16.9); LYMPH % 10.9 % (8-40); MCH 27.8 pg (25.7-33.7); MCHC 33.6 g/dl (32.0-35.9); MEAN CELL VOLUME 82.9 fl (80-96); MEAN PLT VOLUME 7.5 fl (7.5-11.1); MONO % 7.5 % (3.8-10.2); PLATELET COUNT 343 10^3/uL (134-434); RBC 2.92 M/mm3 (4.00-5.60); RDW 17.4 % (11.9-15.9); WHITE BLOOD COUNT 7.9 K/mm3 (4.0-10.0)
[2022-02-27 09:53] LABS: CHLORIDE 98 mmol/L (98-107); SODIUM 138 mmol/L (136-145)
[2022-02-27 10:03] LABS: ALBUMIN 1.7 g/dl (3.4-5.0); ANION GAP 10 MMOL/L (8-16); CALCIUM 8.7 mg/dL (8.5-10.1); CO2 30 mmol/L (21-32); GLUCOSE,RANDOM 94 mg/dL (74-106)
[2022-02-27 10:06] LABS: CREATININE 5.7 mg/dL (0.55-1.3); SGOT/AST 23 U/L (15-37); SGPT/ALT < 6 U/L (13-61)
[2022-02-27 10:07] LABS: BILIRUBIN,TOTAL 2.6 mg/dL (0.2-1); TOT PROT 7.9 g/dl (6.4-8.2)
[2022-02-27 10:09] LABS: ALK PHOS 76 U/L (45-117)
[2022-02-27] MEDS: APIXABAN 5 MG TABLET PO SCH (10:33)
[2022-02-27] MEDS: TORSEMIDE 20 MG TABLET (FP) PO SCH (10:33)
[2022-02-27] MEDS: BACITRACIN ZINC 15 GM TUBE TOPICAL OINTMENT TP SCH (10:33)
[2022-02-27] MEDS: ALLOPURINOL 100 MG TABLET (FP) PO SCH (10:33)
[2022-02-27] MEDS: PANTOPRAZOLE 40 MG TABLET PO SCH (10:34)
[2022-02-27] MEDS: NIFEdipine E.R 60 MG TABLET PO SCH (10:34)
[2022-02-27] MEDS: COLLAGENASE CLOSTRIDIUM HIST. 30 GRAMS TUBE TP SCH (10:34)
[2022-02-27] MEDS: LIDOCAINE 5% TOPICAL PATCH TP SCH (10:34)
[2022-02-27] MEDS: ATENOLOL 25 MG TABLET (FP) PO SCH (10:37)
== END 2022-02-27 12:21 | DRG 853 ==
LOC: FER 11:08 → J4W 02-07 06:46 → JICU 02-13 23:25 → J8W 02-16 16:24
PROVIDERS: ADMIT Internal Medicine; ATTEND Nurse Practitioner Family
PROC: 5A1D70Z Performance of Urinary Filtration, Intermittent, Less than 6 Hours Per Day (ICD-10-PCS; 2022-02-08)
PROC: B54BZZA Ultrasonography of Right Lower Extremity Veins, Guidance (ICD-10-PCS; 2022-02-11)
PROC: 5A1D70Z Performance of Urinary Filtration, Intermittent, Less than 6 Hours Per Day (ICD-10-PCS; 2022-02-11)
PROC: 06HM33Z Insertion of Infusion Device into Right Femoral Vein, Percutaneous Approach (ICD-10-PCS; 2022-02-11)
PROC: B54BZZA Ultrasonography of Right Lower Extremity Veins, Guidance (ICD-10-PCS; 2022-02-11)
PROC: 01N80ZZ Release Thoracic Nerve, Open Approach (ICD-10-PCS; 2022-02-13)
PROC: 30233K1 Transfusion of Nonautologous Frozen Plasma into Peripheral Vein, Percutaneous Approach (ICD-10-PCS; 2022-02-13)
PROC: 30233N1 Transfusion of Nonautologous Red Blood Cells into Peripheral Vein, Percutaneous Approach (ICD-10-PCS; 2022-02-13)
PROC: 06HN33Z Insertion of Infusion Device into Left Femoral Vein, Percutaneous Approach (ICD-10-PCS; 2022-02-13)
PROC: B54CZZA Ultrasonography of Left Lower Extremity Veins, Guidance (ICD-10-PCS; 2022-02-13)
PROC: 0RG7071 Fusion of 2 to 7 Thoracic Vertebral Joints with Autologous Tissue Substitute, Posterior Approach, Posterior Column, Open Approach (ICD-10-PCS; principal; 2022-02-13 08:00)
PROC: 5A1D70Z Performance of Urinary Filtration, Intermittent, Less than 6 Hours Per Day (ICD-10-PCS; 2022-02-15)
PROC: 05H533Z Insertion of Infusion Device into Right Subclavian Vein, Percutaneous Approach (ICD-10-PCS; 2022-02-18)
PROC: B546ZZA Ultrasonography of Right Subclavian Vein, Guidance (ICD-10-PCS; 2022-02-18)
PROC: 5A1D70Z Performance of Urinary Filtration, Intermittent, Less than 6 Hours Per Day (ICD-10-PCS; 2022-02-20)
PROC: 5A1D70Z Performance of Urinary Filtration, Intermittent, Less than 6 Hours Per Day (ICD-10-PCS; 2022-02-22)
PROC: 5A1D70Z Performance of Urinary Filtration, Intermittent, Less than 6 Hours Per Day (ICD-10-PCS; 2022-02-24)
DX: A41.01 Sepsis due to Methicillin susceptible Staphylococcus aureus (principal); G06.1 Intraspinal abscess and granuloma; L89.153 Pressure ulcer of sacral region, stage 3; N18.6 End stage renal disease; I12.0 Hypertensive chronic kidney disease with stage 5 chronic kidney disease or end stage renal disease; E87.1 Hypo-osmolality and hyponatremia; I38 Endocarditis, valve unspecified; K86.2 Cyst of pancreas; M46.24 Osteomyelitis of vertebra, thoracic region; I47.20 Ventricular tachycardia, unspecified; I82.602 Acute embolism and thrombosis of unspecified veins of left upper extremity; M47.24 Other spondylosis with radiculopathy, thoracic region; R19.7 Diarrhea, unspecified; R79.1 Abnormal coagulation profile; Z99.2 Dependence on renal dialysis; E88.09 Other disorders of plasma-protein metabolism, not elsewhere classified; M10.9 Gout, unspecified; E11.22 Type 2 diabetes mellitus with diabetic chronic kidney disease; D64.9 Anemia, unspecified; R62.7 Adult failure to thrive; Z68.35 Body mass index [BMI] 35.0-35.9, adult; J06.9 Acute upper respiratory infection, unspecified; C61 Malignant neoplasm of prostate; D69.6 Thrombocytopenia, unspecified; E66.9 Obesity, unspecified; G47.33 Obstructive sleep apnea (adult) (pediatric); E11.51 Type 2 diabetes mellitus with diabetic peripheral angiopathy without gangrene; E87.5 Hyperkalemia; R79.89 Other specified abnormal findings of blood chemistry; M51.36 Other intervertebral disc degeneration, lumbar region; E80.6 Other disorders of bilirubin metabolism; M46.44 Discitis, unspecified, thoracic region; Z96.643 Presence of artificial hip joint, bilateral; Z96.653 Presence of artificial knee joint, bilateral
CPT/HCPCS: 0241U-QW; 36415; 36430; 36511; 71045-TC-FY; 72128-TC; 72146-TC; 72148-TC; 74176-TC; 74177-TC; 76000-TC-FY; 76705-TC; 80048; 80053; 80076; 82172; 82248; 82553; 82962; 82977; 83010; 83036; 83605; 83735; 83883; 84100; 84132; 84460; 85025; 85027; 85610; 85651; 85730; 86140; 86705; 86803; 86850; 86900; 86901; 86922; 87040; 87070; 87075; 87186; 87205; 87340; 87517; 88305-TC; 88311-TC; 88331-TC; 93005; 93306-TC; 93971; 94010; 94760; 97116-GP; 97162-GP; 99285-25; C1713; C1750; C1889; C9803-CS; J1644; P9016; P9017; P9058; Q5106; Q9967; U0003; U0005

== ENCOUNTER 2022-03-04 10:14 | Inpatient (IN) | payer BC, OTHER ==
[2022-03-04 12:39] LABS: BASO % 1.1 % (0-2.0); HEMATOCRIT 18.1 % (35.4-49); LYMPH % 6.9 % (8-40); MCH 28.5 pg (25.7-33.7); MCHC 32.9 g/dl (32.0-35.9); MEAN CELL VOLUME 86.4 fl (80-96); MEAN PLT VOLUME 7.4 fl (7.5-11.1); MONO % 9.3 % (3.8-10.2); NEUT % 79.7 % (42.8-82.8); PLATELET COUNT 344 10^3/uL (134-434); RDW 18.4 % (11.9-15.9); WHITE BLOOD COUNT 6.7 K/mm3 (4.0-10.0)
[2022-03-04 12:42] LABS: INR 1.28 (0.83-1.09); PROTHROMBIN TIME (PATIENT) 14.7 SEC (9.7-13.0)
[2022-03-04 12:54] LABS: ALBUMIN 1.8 g/dl (3.4-5.0); CALCIUM 8.3 mg/dL (8.5-10.1); MAGNESIUM 1.9 mg/dL (1.8-2.4)
[2022-03-04 12:57] LABS: CREATININE 5.8 mg/dL (0.55-1.3)
[2022-03-04 12:58] LABS: PHOSPHOROUS 3.8 mg/dL (2.5-4.9)
[2022-03-04 12:59] LABS: BILIRUBIN,TOTAL 1.4 mg/dL (0.2-1); TOT PROT 7.7 g/dl (6.4-8.2)
[2022-03-04 13:02] LABS: N-TERMINAL BNP 13746.4 pg/ml (5-125)
[2022-03-04] MEDS ORDERED: ACETAMINOPHEN 500 MG TABLET (FP) PO PRN (16:17)
[2022-03-04] MEDS: PANTOPRAZOLE SODIUM 40 MG VIAL IVPUSH SCH (18:59)
[2022-03-04] MEDS: LIDOCAINE PATCH REMOVAL MC SCH (21:53)
[2022-03-05] MEDS ORDERED: SODIUM CHLORIDE 250 ML IV PRN (07:46)
[2022-03-05] MEDS ORDERED: EPOETIN ALFA-EPBX 20,000 UNIT/ML VIAL IVPUSH ONE (08:30)
[2022-03-05 09:47] LABS: BASO % 1.8 % (0-2.0); EOS % 4.2 % (0-4.5); HEMATOCRIT 19.2 % (35.4-49); LYMPH % 9.8 % (8-40); MCH 28.9 pg (25.7-33.7); MEAN PLT VOLUME 7.1 fl (7.5-11.1); MONO % 8.4 % (3.8-10.2); NEUT % 75.8 % (42.8-82.8); PLATELET COUNT 359 10^3/uL (134-434); RBC 2.25 M/mm3 (4.00-5.60); RDW 17.7 % (11.9-15.9); WHITE BLOOD COUNT 6.1 K/mm3 (4.0-10.0)
[2022-03-05 09:56] LABS: HEMOGLOBIN 6.5 GM/dL (11.7-16.9)
[2022-03-05 11:03] LABS: ALBUMIN 1.8 g/dl (3.4-5.0); BILIRUBIN,TOTAL 1.5 mg/dL (0.2-1); BLOOD UREA NITROGEN 43.2 mg/dL (7-18); CALCIUM 8.3 mg/dL (8.5-10.1); CREATININE 7.2 mg/dL (0.55-1.3); TOT PROT 7.6 g/dl (6.4-8.2)
[2022-03-05] MEDS ORDERED: VANCOMYCIN 1 GM/200 ML PREMIX BAG (RESTRICTED TO ID ONLY) IVPB ONE (12:00)
[2022-03-05 12:04] LABS: INR 1.25 (0.83-1.09); PROTHROMBIN TIME (PATIENT) 14.4 SEC (9.7-13.0)
[2022-03-05 12:07] LABS: ACTIVATED PTT 30.5 SECONDS (25.2-36.5)
[2022-03-05 12:08] LABS: RETICULOCYTES 1.54 % (0.5-1.5)
[2022-03-05 12:24] LABS: BILIRUBIN,DIRECT 0.2 mg/dL (0.0-0.2)
[2022-03-05] MEDS: PANTOPRAZOLE SODIUM 40 MG VIAL IVPUSH SCH (13:26)
[2022-03-05] MEDS: ALLOPURINOL 100 MG TABLET (FP) PO SCH (13:26)
[2022-03-05] MEDS: NIFEdipine E.R 60 MG TABLET PO SCH (13:26)
[2022-03-05] MEDS: ATENOLOL 25 MG TABLET (FP) PO SCH (13:26)
[2022-03-05] MEDS: TORSEMIDE 20 MG TABLET (FP) PO SCH (13:26)
[2022-03-05] MEDS: LIDOCAINE 5% TOPICAL PATCH TP SCH (13:27)
[2022-03-05] MEDS: HEPARIN - 25,000 UNIT in SODIUM CHLORIDE 495 ML IV SCH (14:28)
[2022-03-05 16:52] LABS: HEMOGLOBIN 7.5 GM/dL (11.7-16.9); MCH 29.3 pg (25.7-33.7); MCHC 34.1 g/dl (32.0-35.9); MEAN CELL VOLUME 85.9 fl (80-96); MEAN PLT VOLUME 7.1 fl (7.5-11.1); PLATELET COUNT 332 10^3/uL (134-434); RBC 2.56 M/mm3 (4.00-5.60); WHITE BLOOD COUNT 5.4 K/mm3 (4.0-10.0)
[2022-03-05] MEDS ORDERED: MAGNESIUM SULF 50% (8.12 MEQ/2 ML-1 GM VIAL) IVPB ONE (20:00)
[2022-03-05] MEDS ORDERED: MAGNESIUM 1GM/D5W 100ML - 100 ML IVPB IVPB ONE (22:15)
[2022-03-05] MEDS: LIDOCAINE PATCH REMOVAL MC SCH (22:30)
[2022-03-05] MEDS: HEPARIN NA (PORCINE) 5,000 UNITS/ML 1ML VIAL IVPUSH PRN (22:37)
[2022-03-06] MEDS: HEPARIN NA (PORCINE) 5,000 UNITS/ML 1ML VIAL IVPUSH PRN ×3 (05:47→20:48)
[2022-03-06] MEDS: ALLOPURINOL 100 MG TABLET (FP) PO SCH (09:03)
[2022-03-06] MEDS: ATENOLOL 25 MG TABLET (FP) PO SCH (09:03)
[2022-03-06] MEDS: TORSEMIDE 20 MG TABLET (FP) PO SCH (09:03)
[2022-03-06] MEDS: NIFEdipine E.R 60 MG TABLET PO SCH (09:03)
[2022-03-06] MEDS: ACETAMINOPHEN 1000 MG/100 ML BAG IVPB PRN (09:03)
[2022-03-06] MEDS: LIDOCAINE 5% TOPICAL PATCH TP SCH (09:04)
[2022-03-06] MEDS: PANTOPRAZOLE SODIUM 40 MG VIAL IVPUSH SCH (09:06)
[2022-03-06] MEDS ORDERED: POLYETHYLENE GLYCOL (HEALTHYLAX) 3350 17 GM PACKET PO SCH (10:00)
[2022-03-06 12:10] LABS: HEMATOCRIT 21.5 % (35.4-49); HEMOGLOBIN 7.1 GM/dL (11.7-16.9); MCH 28.9 pg (25.7-33.7); MCHC 33.3 g/dl (32.0-35.9); MEAN CELL VOLUME 86.8 fl (80-96); MEAN PLT VOLUME 6.9 fl (7.5-11.1); PLATELET COUNT 322 10^3/uL (134-434); RBC 2.47 M/mm3 (4.00-5.60); RDW 17.1 % (11.9-15.9); WHITE BLOOD COUNT 5.3 K/mm3 (4.0-10.0)
[2022-03-06] MEDS: LOSARTAN POTASSIUM 50 MG TABLET PO SCH (12:29)
[2022-03-06 12:58] LABS: ALBUMIN 1.8 g/dl (3.4-5.0); CALCIUM 8.3 mg/dL (8.5-10.1)
[2022-03-06 13:00] LABS: BLOOD UREA NITROGEN 27.2 mg/dL (7-18)
[2022-03-06 13:01] LABS: PHOSPHOROUS 3.8 mg/dL (2.5-4.9)
[2022-03-06 13:03] LABS: BILIRUBIN,TOTAL 1.2 mg/dL (0.2-1); CREATININE 5.3 mg/dL (0.55-1.3); TOT PROT 7.6 g/dl (6.4-8.2)
[2022-03-06] MEDS: HEPARIN - 25,000 UNIT in SODIUM CHLORIDE 495 ML IV SCH (20:48)
[2022-03-06] MEDS: LIDOCAINE PATCH REMOVAL MC SCH (21:51)
[2022-03-07] MEDS: ACETAMINOPHEN 1000 MG/100 ML BAG IVPB PRN ×2 (00:30→06:46)
[2022-03-07] MEDS: HEPARIN NA (PORCINE) 5,000 UNITS/ML 1ML VIAL IVPUSH PRN ×3 (04:59→22:03)
[2022-03-07] MEDS ORDERED: VANCOMYCIN 1 GM in D5W (PRE-DOCKED) 1,000 MG/250 ML IVPB SCH (07:29)
[2022-03-07] MEDS: VANCOMYCIN 1 GM in D5W (PRE-DOCKED) 1,000 MG/250 ML IVPB SCH ×2 (07:35→07:37)
[2022-03-07] MEDS: PATIENT'S OWN MEDICATION (NON-FORMULARY) (Relugolix [Orgovyx] 120 MG Tablet) PO SCH (07:37)
[2022-03-07] MEDS: HEPARIN - 25,000 UNIT in SODIUM CHLORIDE 495 ML IV SCH ×2 (09:18→15:50)
[2022-03-07] MEDS: TORSEMIDE 20 MG TABLET (FP) PO SCH (09:21)
[2022-03-07] MEDS: PANTOPRAZOLE SODIUM 40 MG VIAL IVPUSH SCH (09:21)
[2022-03-07] MEDS: NIFEdipine E.R. 90 MG TABLET PO SCH (09:21)
[2022-03-07] MEDS: ALLOPURINOL 100 MG TABLET (FP) PO SCH (09:21)
[2022-03-07] MEDS: LIDOCAINE 5% TOPICAL PATCH TP SCH (09:22)
[2022-03-07] MEDS: LOSARTAN POTASSIUM 50 MG TABLET PO SCH (09:22)
[2022-03-07] MEDS: ATENOLOL 25 MG TABLET (FP) PO SCH (09:22)
[2022-03-07] MEDS: POLYETHYLENE GLYCOL (HEALTHYLAX) 3350 17 GM PACKET PO SCH (09:22)
[2022-03-07 12:18] LABS: HEMATOCRIT 24.2 % (35.4-49); HEMOGLOBIN 8.2 GM/dL (11.7-16.9); MCH 29.1 pg (25.7-33.7); MCHC 33.7 g/dl (32.0-35.9); MEAN CELL VOLUME 86.3 fl (80-96); MEAN PLT VOLUME 7.2 fl (7.5-11.1); PLATELET COUNT 342 10^3/uL (134-434); RBC 2.81 M/mm3 (4.00-5.60); RDW 16.5 % (11.9-15.9); WHITE BLOOD COUNT 4.7 K/mm3 (4.0-10.0)
[2022-03-07 12:25] LABS: INR 1.18 (0.83-1.09); PROTHROMBIN TIME (PATIENT) 13.6 SEC (9.7-13.0)
[2022-03-07 13:18] LABS: BLOOD UREA NITROGEN 32.3 mg/dL (7-18); CALCIUM 8.6 mg/dL (8.5-10.1)
[2022-03-07 13:21] LABS: CREATININE 6.3 mg/dL (0.55-1.3)
[2022-03-07] MEDS ORDERED: LOSARTAN POTASSIUM 25 MG TABLET PO ONE ×3 (14:47→17:33)
[2022-03-07] MEDS ORDERED: LOSARTAN POTASSIUM 50 MG TABLET PO SCH (15:30)
[2022-03-07] MEDS ORDERED: BISACODYL 5 MG TABLET.DR (FP) PO ONE (16:00)
[2022-03-07] MEDS ORDERED: PEG 3350/NA SULF BICARB CL/KCL 4000 ML SOLN.RECON PO ONE (17:00)
[2022-03-07] MEDS: LIDOCAINE PATCH REMOVAL MC SCH (22:13)
[2022-03-07] MEDS ORDERED: ACETAMINOPHEN 325 MG TABLET (FP) PO PRN (22:17)
[2022-03-08] MEDS ORDERED: ACETAMINOPHEN 1000 MG/100 ML BAG IVPB ONE (07:45)
[2022-03-08 07:48] LABS: BASO % 1.2 % (0-2.0); EOS % 4.4 % (0-4.5); HEMATOCRIT 25.3 % (35.4-49); HEMOGLOBIN 8.5 GM/dL (11.7-16.9); MCH 29.2 pg (25.7-33.7); MCHC 33.7 g/dl (32.0-35.9); MEAN CELL VOLUME 86.7 fl (80-96); MEAN PLT VOLUME 7.6 fl (7.5-11.1); MONO % 9.4 % (3.8-10.2); PLATELET COUNT 352 10^3/uL (134-434); RBC 2.92 M/mm3 (4.00-5.60); RDW 16.5 % (11.9-15.9); WHITE BLOOD COUNT 5.3 K/mm3 (4.0-10.0)
[2022-03-08 07:53] LABS: INR 1.16 (0.83-1.09); PROTHROMBIN TIME (PATIENT) 13.4 SEC (9.7-13.0)
[2022-03-08] MEDS ORDERED: VANCOMYCIN 1 GM PREMIX - 200 ML IVPB ONE (08:00)
[2022-03-08 08:10] LABS: CALCIUM 8.7 mg/dL (8.5-10.1)
[2022-03-08 08:14] LABS: CREATININE 7.2 mg/dL (0.55-1.3)
[2022-03-08] MEDS ORDERED: SODIUM CHLORIDE 250 ML IV PRN (09:00)
[2022-03-08] MEDS ORDERED: EPOETIN ALFA-EPBX 20,000 UNIT/ML VIAL IVPUSH ONE (09:00)
[2022-03-08] MEDS ORDERED: TETRACAINE/BENZOCAINE/BUTAMBEN 20 GM SPR TP ONE (10:02)
[2022-03-08] MEDS: ATENOLOL 25 MG TABLET (FP) PO SCH (13:38)
[2022-03-08] MEDS: TORSEMIDE 20 MG TABLET (FP) PO SCH (15:28)
[2022-03-08] MEDS: NIFEdipine E.R. 90 MG TABLET PO SCH (15:29)
[2022-03-08] MEDS: PANTOPRAZOLE SODIUM 40 MG VIAL IVPUSH SCH (16:49)
[2022-03-08] MEDS ORDERED: LOSARTAN POTASSIUM 25 MG TABLET PO ONE (16:49)
[2022-03-08] MEDS: ALLOPURINOL 100 MG TABLET (FP) PO SCH (16:51)
[2022-03-08] MEDS: LIDOCAINE 5% TOPICAL PATCH TP SCH (16:52)
[2022-03-08] MEDS: POLYETHYLENE GLYCOL (HEALTHYLAX) 3350 17 GM PACKET PO SCH (16:54)
[2022-03-08] MEDS ORDERED: LOSARTAN POTASSIUM 50 MG TABLET PO ONE ×2 (17:15)
[2022-03-08] MEDS: LIDOCAINE PATCH REMOVAL MC SCH (21:35)
[2022-03-09 08:25] LABS: HEMATOCRIT 22.8 % (35.4-49); HEMOGLOBIN 7.5 GM/dL (11.7-16.9); MCH 28.9 pg (25.7-33.7); MCHC 33.1 g/dl (32.0-35.9); MEAN CELL VOLUME 87.4 fl (80-96); PLATELET COUNT 351 10^3/uL (134-434); RBC 2.61 M/mm3 (4.00-5.60); RDW 16.9 % (11.9-15.9)
[2022-03-09 08:27] LABS: WHITE BLOOD COUNT 8.6 K/mm3 (4.0-10.0)
[2022-03-09 09:18] LABS: ALBUMIN 1.9 g/dl (3.4-5.0); CALCIUM 8.4 mg/dL (8.5-10.1)
[2022-03-09 09:19] LABS: BLOOD UREA NITROGEN 23.1 mg/dL (7-18); MAGNESIUM 1.8 mg/dL (1.8-2.4)
[2022-03-09 09:22] LABS: CREATININE 5.5 mg/dL (0.55-1.3)
[2022-03-09] MEDS ORDERED: ACETAMINOPHEN 1000 MG/100 ML BAG IVPB PRN (09:22)
[2022-03-09 09:23] LABS: BILIRUBIN,TOTAL 1.2 mg/dL (0.2-1); TOT PROT 7.8 g/dl (6.4-8.2)
[2022-03-09] MEDS ORDERED: oxyCODONE HCL 5 MG TABLET PO PRN (09:23)
[2022-03-09] MEDS: TORSEMIDE 20 MG TABLET (FP) PO SCH (09:29)
[2022-03-09] MEDS: VITAMIN B COMP W-C 1 EA TABLET (NEPHRO-VITE) PO SCH (09:29)
[2022-03-09] MEDS: LOSARTAN POTASSIUM 50 MG TABLET PO SCH (09:29)
[2022-03-09] MEDS: ALLOPURINOL 100 MG TABLET (FP) PO SCH (09:29)
[2022-03-09] MEDS: NIFEdipine E.R. 90 MG TABLET PO SCH (09:29)
[2022-03-09] MEDS: ATENOLOL 25 MG TABLET (FP) PO SCH (09:30)
[2022-03-09] MEDS: PANTOPRAZOLE SODIUM 40 MG VIAL IVPUSH SCH (09:30)
[2022-03-09] MEDS: LIDOCAINE 5% TOPICAL PATCH TP SCH (09:32)
[2022-03-09] MEDS: POLYETHYLENE GLYCOL (HEALTHYLAX) 3350 17 GM PACKET PO SCH ×2 (09:32→09:40)
[2022-03-09] MEDS ORDERED: SODIUM CHLORIDE 250 ML IV PRN (15:02)
[2022-03-09 17:31] LABS: HEMOGLOBIN 8.3 GM/dL (11.7-16.9); MCH 28.8 pg (25.7-33.7); MCHC 33.4 g/dl (32.0-35.9); MEAN CELL VOLUME 86.2 fl (80-96); MEAN PLT VOLUME 7.7 fl (7.5-11.1); PLATELET COUNT 326 10^3/uL (134-434); RDW 16.7 % (11.9-15.9); WHITE BLOOD COUNT 6.3 K/mm3 (4.0-10.0)
[2022-03-09] MEDS ORDERED: MAGNESIUM SULF 50% (8.12 MEQ/2 ML-1 GM VIAL) IVPB ONE (18:26)
[2022-03-09] MEDS: KCL 10 MEQ IVPB 10 MEQ/100 ML INFUS.BAG IVPB SCH ×3 (18:51→23:24)
[2022-03-09] MEDS: LIDOCAINE PATCH REMOVAL MC SCH (22:03)
[2022-03-09] MEDS: HEPARIN - 25,000 UNIT in SODIUM CHLORIDE 495 ML IV SCH (22:07)
[2022-03-10] MEDS: HEPARIN - 25,000 UNIT in SODIUM CHLORIDE 495 ML IV SCH (06:00)
[2022-03-10] MEDS: HEPARIN NA (PORCINE) 5,000 UNITS/ML 1ML VIAL IVPUSH PRN (07:00)
[2022-03-10] MEDS ORDERED: EPOETIN ALFA-EPBX 20,000 UNIT/ML VIAL IVPUSH ONE (09:00)
[2022-03-10 09:01] LABS: CALCIUM 8.7 mg/dL (8.5-10.1)
[2022-03-10 09:02] LABS: BLOOD UREA NITROGEN 29.5 mg/dL (7-18)
[2022-03-10 09:04] LABS: CREATININE 6.9 mg/dL (0.55-1.3)
[2022-03-10 09:05] LABS: BILIRUBIN,TOTAL 1.3 mg/dL (0.2-1)
[2022-03-10 09:06] LABS: TOT PROT 8.1 g/dl (6.4-8.2)
[2022-03-10] MEDS: RELUGOLIX 120 MG PO SCH ×2 (10:30→10:31)
[2022-03-10 11:16] LABS: HEMATOCRIT 26.8 % (35.4-49); HEMOGLOBIN 8.7 GM/dL (11.7-16.9); MCH 28.3 pg (25.7-33.7); MCHC 32.5 g/dl (32.0-35.9); MEAN PLT VOLUME 7.8 fl (7.5-11.1); PLATELET COUNT 316 10^3/uL (134-434); RBC 3.08 M/mm3 (4.00-5.60); RDW 16.9 % (11.9-15.9); WHITE BLOOD COUNT 6.1 K/mm3 (4.0-10.0)
[2022-03-10] MEDS ORDERED: VANCOMYCIN 1 GM in D5W (PRE-DOCKED) 1,000 MG/250 ML IVPB ONE (11:46)
[2022-03-10] MEDS ORDERED: VANCOMYCIN/WATER FOR INJ (PEG) 1,000 MG/200 ML BAG IVPB ONE (13:00)
[2022-03-10] MEDS: PANTOPRAZOLE SODIUM 40 MG VIAL IVPUSH SCH (13:12)
[2022-03-10] MEDS: LOSARTAN POTASSIUM 50 MG TABLET PO SCH (13:12)
[2022-03-10] MEDS: TORSEMIDE 20 MG TABLET (FP) PO SCH (13:12)
[2022-03-10] MEDS: NIFEdipine E.R. 90 MG TABLET PO SCH (13:12)
[2022-03-10] MEDS: VITAMIN B COMP W-C 1 EA TABLET (NEPHRO-VITE) PO SCH (13:12)
[2022-03-10] MEDS: ATENOLOL 25 MG TABLET (FP) PO SCH (13:12)
[2022-03-10] MEDS: ALLOPURINOL 100 MG TABLET (FP) PO SCH (13:12)
[2022-03-10] MEDS: POLYETHYLENE GLYCOL (HEALTHYLAX) 3350 17 GM PACKET PO SCH (13:13)
[2022-03-10] MEDS: LIDOCAINE 5% TOPICAL PATCH TP SCH (13:13)
[2022-03-10] MEDS ORDERED: APIXABAN 2.5 MG TABLET PO SCH (13:25)
[2022-03-10] MEDS ORDERED: APIXABAN 5 MG TABLET PO SCH ×2 (15:44→22:00)
[2022-03-10] MEDS ORDERED: APIXABAN 5 MG TABLET PO ONE (18:04)
[2022-03-10] MEDS: LIDOCAINE PATCH REMOVAL MC SCH (22:21)
[2022-03-11] MEDS: PANTOPRAZOLE SODIUM 40 MG VIAL IVPUSH SCH (09:22)
[2022-03-11] MEDS: LOSARTAN POTASSIUM 50 MG TABLET PO SCH ×2 (09:22→09:39)
[2022-03-11] MEDS: NIFEdipine E.R. 90 MG TABLET PO SCH ×2 (09:22→09:39)
[2022-03-11] MEDS: VITAMIN B COMP W-C 1 EA TABLET (NEPHRO-VITE) PO SCH (09:22)
[2022-03-11] MEDS: TORSEMIDE 20 MG TABLET (FP) PO SCH ×2 (09:22→09:39)
[2022-03-11] MEDS: APIXABAN 5 MG TABLET PO SCH ×2 (09:22→21:18)
[2022-03-11] MEDS: POLYETHYLENE GLYCOL (HEALTHYLAX) 3350 17 GM PACKET PO SCH (09:23)
[2022-03-11] MEDS: LIDOCAINE 5% TOPICAL PATCH TP SCH (09:23)
[2022-03-11] MEDS: ATENOLOL 25 MG TABLET (FP) PO SCH ×2 (09:23→09:39)
[2022-03-11] MEDS ORDERED: oxyCODONE HCL 5 MG TABLET PO PRN (09:56)
[2022-03-11 10:03] LABS: HEMATOCRIT 26.3 % (35.4-49); HEMOGLOBIN 8.8 GM/dL (11.7-16.9); MCH 28.8 pg (25.7-33.7); MCHC 33.3 g/dl (32.0-35.9); MEAN CELL VOLUME 86.5 fl (80-96); MEAN PLT VOLUME 7.5 fl (7.5-11.1); PLATELET COUNT 351 10^3/uL (134-434); RBC 3.04 M/mm3 (4.00-5.60); RDW 16.6 % (11.9-15.9); WHITE BLOOD COUNT 6.2 K/mm3 (4.0-10.0)
[2022-03-11 10:12] LABS: CALCIUM 8.9 mg/dL (8.5-10.1)
[2022-03-11 10:13] LABS: ALBUMIN 2.1 g/dl (3.4-5.0); BLOOD UREA NITROGEN 20.6 mg/dL (7-18); MAGNESIUM 1.9 mg/dL (1.8-2.4)
[2022-03-11 10:16] LABS: CREATININE 5.6 mg/dL (0.55-1.3)
[2022-03-11 10:17] LABS: TOT PROT 8.4 g/dl (6.4-8.2)
[2022-03-11 10:18] LABS: BILIRUBIN,TOTAL 1.2 mg/dL (0.2-1)
[2022-03-11] MEDS ORDERED: ACETAMINOPHEN 1000 MG/100 ML BAG IVPB PRN (12:49)
[2022-03-11] MEDS: AMINO ACIDS/PROTEIN HYDROLYS 30 ML LIQUID.PKT PO SCH (17:35)
[2022-03-11] MEDS: LIDOCAINE PATCH REMOVAL MC SCH (21:18)
[2022-03-11 21:57] VITALS: BMI 35.8
[2022-03-11] MEDS ORDERED: ALLOPURINOL 100 MG TABLET (FP) PO SCH (22:00)
[2022-03-12] MEDS ORDERED: VANCOMYCIN/WATER FOR INJ (PEG) 1,000 MG/200 ML BAG IVPB ONE (08:30)
[2022-03-12] MEDS ORDERED: SODIUM CHLORIDE 250 ML IV PRN (08:30)
[2022-03-12] MEDS ORDERED: EPOETIN ALFA-EPBX 20,000 UNIT/ML VIAL IVPUSH ONE (08:30)
[2022-03-12] MEDS: PANTOPRAZOLE SODIUM 40 MG VIAL IVPUSH SCH (09:14)
[2022-03-12] MEDS: VITAMIN B COMP W-C 1 EA TABLET (NEPHRO-VITE) PO SCH (09:14)
[2022-03-12] MEDS: LOSARTAN POTASSIUM 50 MG TABLET PO SCH (09:15)
[2022-03-12] MEDS: ATENOLOL 25 MG TABLET (FP) PO SCH (09:15)
[2022-03-12] MEDS: APIXABAN 5 MG TABLET PO SCH (09:15)
[2022-03-12] MEDS: TORSEMIDE 20 MG TABLET (FP) PO SCH (09:15)
[2022-03-12] MEDS: NIFEdipine E.R. 90 MG TABLET PO SCH (09:15)
[2022-03-12] MEDS: AMINO ACIDS/PROTEIN HYDROLYS 30 ML LIQUID.PKT PO SCH (09:15)
[2022-03-12] MEDS: LIDOCAINE 5% TOPICAL PATCH TP SCH (09:15)
[2022-03-12] MEDS: POLYETHYLENE GLYCOL (HEALTHYLAX) 3350 17 GM PACKET PO SCH ×2 (09:15→09:20)
[2022-03-12 10:48] LABS: HEMATOCRIT 24.1 % (35.4-49); HEMOGLOBIN 8.2 GM/dL (11.7-16.9); MCH 29.4 pg (25.7-33.7); MEAN CELL VOLUME 86.4 fl (80-96); MEAN PLT VOLUME 7.3 fl (7.5-11.1); PLATELET COUNT 276 10^3/uL (134-434); RBC 2.79 M/mm3 (4.00-5.60); RDW 16.6 % (11.9-15.9); WHITE BLOOD COUNT 6.2 K/mm3 (4.0-10.0)
[2022-03-12 11:18] LABS: ALBUMIN 2.1 g/dl (3.4-5.0); CALCIUM 8.5 mg/dL (8.5-10.1)
[2022-03-12 11:21] LABS: CREATININE 7.1 mg/dL (0.55-1.3); PHOSPHOROUS 3.8 mg/dL (2.5-4.9)
[2022-03-12 11:23] LABS: BILIRUBIN,TOTAL 1.1 mg/dL (0.2-1); TOT PROT 7.9 g/dl (6.4-8.2)
[2022-03-12 11:40] VITALS: RESP 18
[2022-03-12 15:22] VITALS: BP 152/81; PULSE 58; TEMP 98.3
== END 2022-03-12 16:06 | disposition home health service (06) | DRG 377 ==
LOC: JER 10:14 → JERBED 16:18 → J5S 17:43 → J4W 03-05 19:33 → J5S 03-10 16:12
PROVIDERS: ADMIT Internal Medicine; ATTEND Internal Medicine
PROC: 30233N1 Transfusion of Nonautologous Red Blood Cells into Peripheral Vein, Percutaneous Approach (ICD-10-PCS; 2022-03-04)
PROC: 5A1D70Z Performance of Urinary Filtration, Intermittent, Less than 6 Hours Per Day (ICD-10-PCS; 2022-03-05)
PROC: 0W3P8ZZ Control Bleeding in Gastrointestinal Tract, Via Natural or Artificial Opening Endoscopic (ICD-10-PCS; 2022-03-08)
PROC: 0DB68ZX Excision of Stomach, Via Natural or Artificial Opening Endoscopic, Diagnostic (ICD-10-PCS; 2022-03-08)
PROC: 0DBL8ZX Excision of Transverse Colon, Via Natural or Artificial Opening Endoscopic, Diagnostic (ICD-10-PCS; principal; 2022-03-08 10:00)
DX: K92.2 Gastrointestinal hemorrhage, unspecified (principal); G06.2 Extradural and subdural abscess, unspecified; N18.6 End stage renal disease; I12.0 Hypertensive chronic kidney disease with stage 5 chronic kidney disease or end stage renal disease; D64.9 Anemia, unspecified; Z86.718 Personal history of other venous thrombosis and embolism; Z79.01 Long term (current) use of anticoagulants; E11.22 Type 2 diabetes mellitus with diabetic chronic kidney disease; Z99.2 Dependence on renal dialysis; C61 Malignant neoplasm of prostate; M10.9 Gout, unspecified; G47.30 Sleep apnea, unspecified; G47.33 Obstructive sleep apnea (adult) (pediatric); K64.8 Other hemorrhoids; K63.5 Polyp of colon; I16.0 Hypertensive urgency
CPT/HCPCS: 0241U-QW; 36415; 36430; 36511; 71045-TC-FY; 80048; 80053; 82248; 82272; 82607; 82728; 82746; 83010; 83540; 83550; 83615; 83735; 83880; 84100; 84484; 85025; 85027; 85045; 85610; 85730; 86850; 86900; 86901; 86922; 87040; 88305-TC; 93005; 93010; 93971; 97116-GP; 97162-GP; 99285-25; G0480; J1644; P9016; P9058

== ENCOUNTER 2022-05-06 05:26 | Day surgery (SDC) | payer BC ==
[2022-04-30 12:43] VITALS: BMI 33.9
[~2022-05-06 05:26] MED LIST changes: +IOHEXOL 180 MG/1 ML ML IJ ONE; -LIDOCAINE HCL 1%, 10 MG/ML (20ML VIAL) NR ONE; +LIDOCAINE HCL 1%, 10 MG/ML (20ML VIAL) PNB ONE; +ceFAZolin SODIUM 1 GM VIAL IVPB ONE
[2022-05-06] MEDS ORDERED: LIDOCAINE HCL 1%, 10 MG/ML (10ML VIAL) MDV ONE (07:19)
[2022-05-06] MEDS ORDERED: HEPARIN NA (PORCINE) 5,000 UNITS/ML 1ML VIAL ONE (07:19)
[2022-05-06] MEDS ORDERED: THROMBIN (BOVINE) 5,000 UNIT VIAL TP ONE (07:21)
[2022-05-06] MEDS ORDERED: POVIDONE-IODINE OINTMENT 10% - 28.4 GM TUBE ONE (07:27)
[2022-05-06] MEDS ORDERED: MIDAZOLAM HCL 2 MG/2 ML SINGLE DOSE VIAL ONE ×2 (09:56→11:06)
[2022-05-06] MEDS ORDERED: ROPIVACAINE HCL 0.5% 30ML VIAL ONE (09:59)
[2022-05-06] MEDS ORDERED: ceFAZolin SODIUM 1 GM VIAL IVPB ONE (10:21)
[2022-05-06] MEDS ORDERED: LIDOCAINE HCL 1%, 10 MG/ML (20ML VIAL) PNB ONE (10:41)
[2022-05-06] MEDS ORDERED: HEPARIN NA (PORCINE) 5,000 UNITS/ML 1ML VIAL IV ONE (10:41)
[2022-05-06] MEDS ORDERED: HEPARIN NA (PORCINE) 5,000 UNITS/ML 1ML VIAL IVPUSH ONE (10:41)
[2022-05-06] MEDS ORDERED: ONDANSETRON 4 MG/2 ML VIAL IVPUSH PRN (11:49)
[2022-05-06] MEDS ORDERED: oxyCODONE HCL 5 MG TABLET PO PRN (11:49)
[2022-05-06 15:43] VITALS: BP 156/74; PULSE 54; RESP 22; TEMP 97
== END 2022-05-06 14:40 | disposition home or self-care (01) ==
LOC: JASU-SURG 05:26
PROVIDERS: ATTEND Surgery Vascular Surgery
PROC: 03170ZD Bypass Right Brachial Artery to Upper Arm Vein, Open Approach (ICD-10-PCS; principal; 2022-05-06 10:30)
DX: I12.0 Hypertensive chronic kidney disease with stage 5 chronic kidney disease or end stage renal disease (principal); N18.6 End stage renal disease
CPT/HCPCS: 36415; 84132; 94760; J1644

== ENCOUNTER → 2022-06-03 | Day surgery (SDC) | payer BC, OTHER | END | disposition home or self-care (01) | LOC: JRADIR 09:29 | PROVIDERS: ATTEND Internal Medicine Geriatric Medicine | PROC: 0G9G3ZX Drainage of Left Thyroid Gland Lobe, Percutaneous Approach, Diagnostic (ICD-10-PCS; principal; 2022-06-03) | DX: E04.1 Nontoxic single thyroid nodule (principal) | CPT/HCPCS: 10005; 76942; 88173; 88305-TC ==

== ENCOUNTER 2022-06-25 04:05 | Day surgery (SDC) | payer BC, OTHER ==
[2022-06-24 10:48] VITALS: BMI 33.9
[2022-06-25] MEDS ORDERED: HEPARIN NA (PORCINE) 5,000 UNITS/ML 1ML VIAL ONE (07:24)
[2022-06-25] MEDS ORDERED: LIDOCAINE HCL 1%, 10 MG/ML (10ML VIAL) MDV ONE (07:24)
[2022-06-25] MEDS ORDERED: LIDOCAINE HCL/PF 2% SDV 5ML VIAL ONE (09:11)
[2022-06-25] MEDS ORDERED: MIDAZOLAM HCL 2 MG/2 ML SINGLE DOSE VIAL ONE (09:12)
[2022-06-25] MEDS ORDERED: PROPOFOL 20 ML ONE (09:12)
[2022-06-25] MEDS ORDERED: ceFAZolin SODIUM 1 GM VIAL ONE (09:52)
[2022-06-25] MEDS ORDERED: HEPARIN NA (PORCINE) 5,000 UNITS/ML 1ML VIAL SQ ONE ×2 (10:00→10:01)
[2022-06-25] MEDS ORDERED: LIDOCAINE HCL 1%, 10 MG/ML (20ML VIAL) INF ONE (10:00)
[2022-06-25] MEDS ORDERED: IOHEXOL 300 MG/ML INFUS..BTL IJ ONE (10:19)
[2022-06-25] MEDS ORDERED: ACETAMINOPHEN 325 MG TABLET (FP) PO PRN (10:28)
[2022-06-25] MEDS ORDERED: ONDANSETRON 4 MG/2 ML VIAL IVPUSH PRN (10:28)
[2022-06-25] MEDS ORDERED: oxyCODONE HCL 5 MG TABLET PO PRN (10:28)
[2022-06-25 12:25] VITALS: TEMP 98.7
[2022-06-25 13:27] VITALS: BP 180/90; PULSE 52; RESP 20
== END 2022-06-25 13:35 | disposition home or self-care (01) ==
LOC: JASU-SURG 04:05
PROVIDERS: ATTEND Surgery Vascular Surgery
PROC: 03723ZZ Dilation of Innominate Artery, Percutaneous Approach (ICD-10-PCS; principal; 2022-06-25 09:00)
DX: I12.0 Hypertensive chronic kidney disease with stage 5 chronic kidney disease or end stage renal disease (principal); N18.6 End stage renal disease; Z99.2 Dependence on renal dialysis
CPT/HCPCS: 36415; 76000-TC-FY; 84132; 94760; J1644

== ENCOUNTER 2022-10-14 04:55 | Day surgery (SDC) | payer BC ==
[2022-10-13 15:07] VITALS: BMI 33.9
[~2022-10-14 04:55] MED LIST changes: -IOHEXOL 180 MG/1 ML ML IJ ONE; +LIDOCAINE HCL 1%, 10 MG/ML (20ML VIAL) INF ONE; -LIDOCAINE HCL 1%, 10 MG/ML (20ML VIAL) PNB ONE; -ceFAZolin SODIUM 1 GM VIAL IVPB ONE
[2022-10-14] MEDS ORDERED: LIDOCAINE HCL 1%, 10 MG/ML (20ML VIAL) ONE (07:14)
[2022-10-14] MEDS ORDERED: HEPARIN NA (PORCINE) 5,000 UNITS/ML 1ML VIAL ONE (07:15)
[2022-10-14 07:16] LABS: CHLORIDE 104 mmol/L (98-107); POTASSIUM 4.5 mmol/L (3.5-5.1); SODIUM 138 mmol/L (136-145)
[2022-10-14 07:19] LABS: CALCIUM 8.9 mg/dL (8.5-10.1)
[2022-10-14 07:20] LABS: ALBUMIN 3.3 g/dl (3.4-5.0); ANION GAP 8 MMOL/L (8-16); BLOOD UREA NITROGEN 53.1 mg/dL (7-18); CO2 26 mmol/L (21-32); GLUCOSE,RANDOM 96 mg/dL (74-106)
[2022-10-14 07:23] LABS: SGOT/AST 9 U/L (15-37); SGPT/ALT 12 U/L (13-61)
[2022-10-14 07:24] LABS: BILIRUBIN,TOTAL 0.4 mg/dL (0.2-1); TOT PROT 7.4 g/dl (6.4-8.2)
[2022-10-14 07:26] LABS: ALK PHOS 90 U/L (45-117)
[2022-10-14] MEDS ORDERED: ceFAZolin SODIUM 1 GM VIAL ONE ×3 (07:46→08:32)
[2022-10-14] MEDS ORDERED: MIDAZOLAM HCL 2 MG/2 ML SINGLE DOSE VIAL ONE (07:46)
[2022-10-14] MEDS ORDERED: ONDANSETRON 4 MG/2 ML VIAL ONE (07:46)
[2022-10-14] MEDS ORDERED: GLYCOPYRROLATE 0.2 MG/1 ML VIAL ONE (07:46)
[2022-10-14] MEDS ORDERED: PROPOFOL 20 ML ONE (07:46)
[2022-10-14] MEDS ORDERED: LIDOCAINE HCL/PF 2% SDV 5ML VIAL ONE (07:46)
[2022-10-14] MEDS ORDERED: IOHEXOL 300 MG/ML INFUS..BTL IJ ONE ×2 (08:30→08:38)
[2022-10-14] MEDS ORDERED: HEPARIN NA (PORCINE) 5,000 UNITS/ML 1ML VIAL IVPUSH ONE (08:30)
[2022-10-14] MEDS ORDERED: ceFAZolin SODIUM 1 GM VIAL IVPB ONE (08:35)
[2022-10-14] MEDS ORDERED: HEPARIN NA (PORCINE) 5,000 UNITS/ML 1ML VIAL SQ ONE (08:38)
[2022-10-14] MEDS ORDERED: LIDOCAINE HCL 1%, 10 MG/ML (20ML VIAL) INF ONE (08:38)
[2022-10-14] MEDS ORDERED: ONDANSETRON 4 MG/2 ML VIAL IVPUSH PRN (09:53)
[2022-10-14] MEDS ORDERED: ACETAMINOPHEN 325 MG TABLET (FP) PO ONE (09:54)
[2022-10-14 10:52] VITALS: RESP 20
[2022-10-14 13:09] VITALS: TEMP 97.8
[2022-10-14 14:36] VITALS: BP 128/78; PULSE 72
== END 2022-10-14 12:45 | disposition home or self-care (01) ==
LOC: JASU-SURG 04:55
PROVIDERS: ATTEND Surgery Vascular Surgery
PROC: 057F3ZZ Dilation of Left Cephalic Vein, Percutaneous Approach (ICD-10-PCS; principal; 2022-10-14 08:00)
DX: T82.858A Stenosis of other vascular prosthetic devices, implants and grafts, initial encounter (principal); E11.22 Type 2 diabetes mellitus with diabetic chronic kidney disease; I12.0 Hypertensive chronic kidney disease with stage 5 chronic kidney disease or end stage renal disease; N18.6 End stage renal disease; Z99.2 Dependence on renal dialysis; Z91.158 Patient's noncompliance with renal dialysis for other reason; N40.0 Benign prostatic hyperplasia without lower urinary tract symptoms; Z85.46 Personal history of malignant neoplasm of prostate
CPT/HCPCS: 36415; 76000-TC-FY; 80053; 94760; C1769; C2623; J1644

== ENCOUNTER 2022-12-16 04:17 | Day surgery (SDC) | payer BC ==
[2022-12-15 14:10] VITALS: BMI 33.9
[~2022-12-16 04:17] MED LIST changes: +HEPARIN NA (PORCINE) 5,000 UNITS/ML 1ML VIAL SQ ONE; -LIDOCAINE HCL 1%, 10 MG/ML (20ML VIAL) INF ONE
[2022-12-16 07:54] LABS: CHLORIDE 103 mmol/L (98-107); POTASSIUM 5.2 mmol/L (3.5-5.1); SODIUM 138 mmol/L (136-145)
[2022-12-16] MEDS ORDERED: LIDOCAINE HCL 1%, 10 MG/ML (20ML VIAL) ONE (07:55)
[2022-12-16 07:56] LABS: ANION GAP 9 mmol/L (4-13); BLOOD UREA NITROGEN 67.9 mg/dL (7-18); CALCIUM 9.2 mg/dL (8.5-10.1); CO2 26 mmol/L (21-32); GLUCOSE,RANDOM 92 mg/dL (74-106)
[2022-12-16 07:59] LABS: EOS % 7.4 % (0-4.5); HEMATOCRIT 34.8 % (35.4-49); HEMOGLOBIN 11.5 GM/dL (11.7-16.9); LYMPH % 18.5 % (8-40); MCH 27.1 pg (25.7-33.7); MONO % 10.5 % (3.8-10.2); NEUT % 62.6 % (42.8-82.8); PLATELET COUNT 215 10^3/uL (134-434); RBC 4.24 M/mm3 (4.00-5.60); WHITE BLOOD COUNT 4.5 K/mm3 (4.0-10.0)
[2022-12-16 08:01] LABS: CREATININE 9.5 mg/dL (0.55-1.3)
[2022-12-16] MEDS ORDERED: PROPOFOL 40 ML ONE (09:26)
[2022-12-16] MEDS ORDERED: MIDAZOLAM HCL 2 MG/2 ML SINGLE DOSE VIAL ONE (09:28)
[2022-12-16] MEDS ORDERED: FENTANYL CITRATE/PF 50 MCG/ML VIAL ONE (09:28)
[2022-12-16] MEDS ORDERED: HEPARIN NA (PORCINE) 5,000 UNITS/ML 1ML VIAL ONE (09:50)
[2022-12-16] MEDS ORDERED: ceFAZolin SODIUM 1 GM VIAL ONE (10:14)
[2022-12-16] MEDS ORDERED: HEPARIN NA (PORCINE) 5,000 UNITS/ML 1ML VIAL SQ ONE (10:20)
[2022-12-16] MEDS ORDERED: LIDOCAINE 1% P/F 10 MG/ML VIAL INF ONE (10:20)
[2022-12-16] MEDS ORDERED: ONDANSETRON 4 MG/2 ML VIAL IVPUSH PRN (10:37)
[2022-12-16] MEDS ORDERED: oxyCODONE HCL 5 MG TABLET PO PRN (10:37)
[2022-12-16 12:00] VITALS: BP 145/68; PULSE 57; RESP 14; TEMP 97.9
== END 2022-12-16 12:50 | disposition home or self-care (01) ==
LOC: JASU-SURG 04:17
PROVIDERS: ATTEND Surgery Vascular Surgery
PROC: 0J2SXYZ Change Other Device in Head and Neck Subcutaneous Tissue and Fascia, External Approach (ICD-10-PCS; principal; 2022-12-16 09:30)
DX: N18.6 End stage renal disease (principal)
CPT/HCPCS: 36581; 77001; C1751; 36415; 71045-TC-FY; 76000-TC-FY; 80048; 85025; 94760; C1750; J1644

== ENCOUNTER 2023-09-05 17:49 | Inpatient (IN) | payer BC, OTHER ==
[2023-09-05 18:04] VITALS: BMI 31.8
[2023-09-05] MEDS ORDERED: ATROPINE SULFATE 1 MG/10 ML DISP.SYRIN ONE (18:17)
[2023-09-05] MEDS ORDERED: MAGNESIUM 1GM/D5W - 1 GM/100 ML IVPB IVPB ONE (18:17)
[2023-09-05] MEDS: LACTATED RINGERS SOLUTION 1000 ML INFUS.BAG IV ONE (18:36)
[2023-09-05] MEDS: MAGNESIUM 1GM/D5W - 1 GM/100 ML IVPB IVPB ONE (18:37)
[2023-09-05 18:49] LABS: INR 1.04 (0.83-1.09); PROTHROMBIN TIME (PATIENT) 11.7 SEC (9.7-13.0)
[2023-09-05 18:52] LABS: ACTIVATED PTT 28.9 SECONDS (25.2-36.5)
[2023-09-05 19:00] LABS: BASO % 0.9 % (0-2.0); EOS % 1.8 % (0-4.5); HEMATOCRIT 33.4 % (35.4-49); HEMOGLOBIN 11.4 GM/dL (11.7-16.9); LYMPH % 11.1 % (8-40); MCH 27.6 pg (25.7-33.7); MEAN CELL VOLUME 81.1 fl (80-96); MONO % 8.5 % (3.8-10.2); NEUT % 77.7 % (42.8-82.8); PLATELET COUNT 227 10^3/uL (134-434); RBC 4.12 M/mm3 (4.00-5.60); RDW 16.4 % (11.9-15.9); WHITE BLOOD COUNT 5.1 K/mm3 (4.0-10.0)
[2023-09-05 19:15] LABS: POTASSIUM 4.6 mmol/L (3.5-5.1)
[2023-09-05 19:19] LABS: ALBUMIN 3.2 g/dl (3.4-5.0); BLOOD UREA NITROGEN 28.4 mg/dL (7-18); CALCIUM 8.2 mg/dL (8.5-10.1)
[2023-09-05 19:21] LABS: CREATININE 7.3 mg/dL (0.55-1.3)
[2023-09-05 19:22] LABS: PHOSPHOROUS 4.1 mg/dL (2.5-4.9)
[2023-09-05 19:23] LABS: BILIRUBIN,TOTAL 0.6 mg/dL (0.2-1); TOT PROT 7.6 g/dl (6.4-8.2)
[2023-09-05 19:27] LABS: N-TERMINAL BNP 1854.8 pg/ml (5-125)
[2023-09-06] MEDS: HEPARIN NA (PORCINE) 5,000 UNITS/ML 1ML VIAL SQ SCH (06:32)
[2023-09-06 08:33] LABS: BASO % 0.9 % (0-2.0); HEMATOCRIT 36.8 % (35.4-49); HEMOGLOBIN 12.2 GM/dL (11.7-16.9); LYMPH % 14.7 % (8-40); MCH 27.6 pg (25.7-33.7); MCHC 33.1 g/dl (32.0-35.9); MEAN CELL VOLUME 83.5 fl (80-96); MONO % 8.7 % (3.8-10.2); NEUT % 71.7 % (42.8-82.8); PLATELET COUNT 207 10^3/uL (134-434); RBC 4.41 M/mm3 (4.00-5.60); RDW 16.8 % (11.9-15.9); WHITE BLOOD COUNT 4.9 K/mm3 (4.0-10.0)
[2023-09-06 09:15] LABS: CHLORIDE 99 mmol/L (98-107); POTASSIUM 4.5 mmol/L (3.5-5.1); SODIUM 138 mmol/L (136-145)
[2023-09-06 10:08] LABS: ANION GAP 12 mmol/L (4-13); CO2 27 mmol/L (21-32)
[2023-09-06 10:13] LABS: ALBUMIN 3.3 g/dl (3.4-5.0); BLOOD UREA NITROGEN 36.3 mg/dL (7-18); CALCIUM 8.2 mg/dL (8.5-10.1)
[2023-09-06 10:14] LABS: GLUCOSE,RANDOM 76 mg/dL (74-106); MAGNESIUM 2.4 mg/dL (1.8-2.4)
[2023-09-06 10:17] LABS: PHOSPHOROUS 5.7 mg/dL (2.5-4.9); SGOT/AST 19 U/L (15-37)
[2023-09-06 10:18] LABS: BILIRUBIN,TOTAL 0.6 mg/dL (0.2-1); CREATININE 8.2 mg/dL (0.55-1.3); SGPT/ALT 51 U/L (13-61); TOT PROT 7.9 g/dl (6.4-8.2)
[2023-09-06 10:19] LABS: ALK PHOS 117 U/L (45-117)
[2023-09-06] MEDS: ALLOPURINOL 100 MG TABLET (FP) PO SCH (10:56)
[2023-09-06] MEDS: CINACALCET HCL 30 MG TAB (FP) PO SCH (10:57)
[2023-09-06] MEDS ORDERED: SODIUM CHLORIDE 250 ML IV PRN (14:13)
[2023-09-06] MEDS: metoPROLOL SUCCINATE 25 MG TAB.SR.24H (FP) PO SCH (17:18)
[2023-09-06] MEDS: SACUBITRIL/VALSARTAN 24 MG-26 MG TABLET PO SCH (22:51)
[2023-09-07 08:24] LABS: EOS % 6.4 % (0-4.5); HEMATOCRIT 36.5 % (35.4-49); HEMOGLOBIN 12.4 GM/dL (11.7-16.9); LYMPH % 15.1 % (8-40); MCH 27.9 pg (25.7-33.7); MCHC 34.1 g/dl (32.0-35.9); MEAN CELL VOLUME 81.7 fl (80-96); NEUT % 67.5 % (42.8-82.8); PLATELET COUNT 219 10^3/uL (134-434); RBC 4.46 M/mm3 (4.00-5.60); RDW 17.1 % (11.9-15.9); WHITE BLOOD COUNT 4.4 K/mm3 (4.0-10.0)
[2023-09-07 08:44] LABS: CHLORIDE 96 mmol/L (98-107); POTASSIUM 5.4 mmol/L (3.5-5.1); SODIUM 134 mmol/L (136-145)
[2023-09-07 08:53] LABS: ANION GAP 12 mmol/L (4-13); BLOOD UREA NITROGEN 48.4 mg/dL (7-18); CALCIUM 8.3 mg/dL (8.5-10.1); CO2 26 mmol/L (21-32); MAGNESIUM 2.4 mg/dL (1.8-2.4)
[2023-09-07 08:54] LABS: GLUCOSE,RANDOM 78 mg/dL (74-106)
[2023-09-07 08:56] LABS: PHOSPHOROUS 7.4 mg/dL (2.5-4.9); SGPT/ALT 40 U/L (13-61)
[2023-09-07 08:57] LABS: SGOT/AST 20 U/L (15-37)
[2023-09-07 08:58] LABS: BILIRUBIN,TOTAL 0.8 mg/dL (0.2-1)
[2023-09-07 08:59] LABS: ALK PHOS 99 U/L (45-117); CREATININE 10.5 mg/dL (0.55-1.3)
[2023-09-07] MEDS: SODIUM CHLORIDE 250 ML IV PRN (09:30)
[2023-09-07] MEDS: HEPARIN NA (PORCINE) 5,000 UNITS/ML 1ML VIAL IVPUSH ONE (10:00)
[2023-09-07 13:23] VITALS: TEMP 97.5
[2023-09-07] MEDS: SACUBITRIL/VALSARTAN 24 MG-26 MG TABLET PO SCH (13:28)
[2023-09-07 15:50] VITALS: BP 140/53; PULSE 77; RESP 99
== END 2023-09-07 16:02 | disposition short-term general hospital (02) | DRG 308 ==
LOC: JER 17:49 → JERBED 21:41 → J4W 09-06 02:28
PROVIDERS: ADMIT Internal Medicine; ATTEND Internal Medicine
PROC: 5A1D70Z Performance of Urinary Filtration, Intermittent, Less than 6 Hours Per Day (ICD-10-PCS; principal; 2023-09-07)
DX: I47.29 Other ventricular tachycardia (principal); N18.6 End stage renal disease; I12.0 Hypertensive chronic kidney disease with stage 5 chronic kidney disease or end stage renal disease; I42.9 Cardiomyopathy, unspecified; Z99.2 Dependence on renal dialysis; K59.00 Constipation, unspecified; G47.33 Obstructive sleep apnea (adult) (pediatric); D64.9 Anemia, unspecified; M10.9 Gout, unspecified; M51.36 Other intervertebral disc degeneration, lumbar region; N40.0 Benign prostatic hyperplasia without lower urinary tract symptoms; E11.9 Type 2 diabetes mellitus without complications; R91.1 Solitary pulmonary nodule; Z85.46 Personal history of malignant neoplasm of prostate
CPT/HCPCS: 0241U-QW; 36415; 71045-TC-FY; 80048; 80053; 82962; 83735; 83880; 84100; 84443; 84484; 85025; 85610; 85730; 86803; 86850; 86900; 86901; 87340; 93005; 93010; 93306-TC; 93308; 99291; J1644

== ENCOUNTER 2023-09-23 12:48 | Inpatient (IN) | payer BC, OTHER ==
[2023-09-23 14:28] LABS: BASO % 0.9 % (0-2.0); EOS % 6.5 % (0-4.5); HEMATOCRIT 34.4 % (35.4-49); HEMOGLOBIN 11.5 GM/dL (11.7-16.9); LYMPH % 12.1 % (8-40); MCH 27.6 pg (25.7-33.7); MCHC 33.5 g/dl (32.0-35.9); MEAN CELL VOLUME 82.4 fl (80-96); MEAN PLT VOLUME 8.1 fl (7.5-11.1); MONO % 11.3 % (3.8-10.2); NEUT % 69.2 % (42.8-82.8); PLATELET COUNT 260 10^3/uL (134-434); RBC 4.17 M/mm3 (4.00-5.60); RDW 16.4 % (11.9-15.9); WHITE BLOOD COUNT 5.2 K/mm3 (4.0-10.0)
[2023-09-23 14:33] LABS: INR 1.07 (0.83-1.09); PROTHROMBIN TIME (PATIENT) 12.1 SEC (9.7-13.0)
[2023-09-23 14:45] LABS: POTASSIUM 4.2 mmol/L (3.5-5.1)
[2023-09-23 14:47] LABS: CALCIUM 9.4 mg/dL (8.5-10.1)
[2023-09-23 14:48] LABS: ALBUMIN 3.4 g/dl (3.4-5.0); BLOOD UREA NITROGEN 22.9 mg/dL (7-18); MAGNESIUM 1.9 mg/dL (1.8-2.4)
[2023-09-23 14:51] LABS: CREATININE 5.3 mg/dL (0.55-1.3); PHOSPHOROUS 3.5 mg/dL (2.5-4.9)
[2023-09-23 14:52] LABS: BILIRUBIN,TOTAL 0.7 mg/dL (0.2-1); TOT PROT 7.9 g/dl (6.4-8.2)
[2023-09-24 04:08] VITALS: BMI 31.6
[2023-09-24 06:10] VITALS: TEMP 98.2
[2023-09-24 07:50] LABS: HEMATOCRIT 34.9 % (35.4-49); HEMOGLOBIN 11.5 GM/dL (11.7-16.9); MCH 27.8 pg (25.7-33.7); MEAN CELL VOLUME 84.3 fl (80-96); MEAN PLT VOLUME 8.1 fl (7.5-11.1); PLATELET COUNT 217 10^3/uL (134-434); RBC 4.14 M/mm3 (4.00-5.60); RDW 16.3 % (11.9-15.9); WHITE BLOOD COUNT 5.5 K/mm3 (4.0-10.0)
[2023-09-24 08:05] LABS: POTASSIUM 4.6 mmol/L (3.5-5.1)
[2023-09-24 08:12] LABS: ALBUMIN 3.2 g/dl (3.4-5.0); CALCIUM 8.6 mg/dL (8.5-10.1)
[2023-09-24 08:13] LABS: BLOOD UREA NITROGEN 34.5 mg/dL (7-18); MAGNESIUM 2.1 mg/dL (1.8-2.4)
[2023-09-24 08:16] LABS: CREATININE 7.1 mg/dL (0.55-1.3); PHOSPHOROUS 4.7 mg/dL (2.5-4.9)
[2023-09-24 08:17] LABS: BILIRUBIN,TOTAL 0.7 mg/dL (0.2-1); TOT PROT 7.3 g/dl (6.4-8.2)
[2023-09-24] MEDS ORDERED: ACETAMINOPHEN 325 MG TABLET (FP) PO PRN (08:28)
[2023-09-24] MEDS: ALLOPURINOL 100 MG TABLET (FP) PO SCH (10:45)
[2023-09-24] MEDS: metoPROLOL SUCCINATE 25 MG TAB.SR.24H (FP) PO SCH (10:45)
[2023-09-24 10:47] VITALS: BP 122/52; PULSE 69; RESP 18
[2023-09-24] MEDS ORDERED: ATORVASTATIN CA 40 MG TABLET (FP) PO SCH (22:00)
== END 2023-09-24 15:38 | disposition home or self-care (01) | DRG 312 ==
LOC: JER 12:48 → JERBED 18:06 → OBSVTOIN 23:13 → J4S 09-24 03:58
PROVIDERS: ADMIT Internal Medicine; ATTEND Internal Medicine
DX: R55 Syncope and collapse (principal); N18.6 End stage renal disease; I12.0 Hypertensive chronic kidney disease with stage 5 chronic kidney disease or end stage renal disease; Z99.2 Dependence on renal dialysis
CPT/HCPCS: 36415; 70450-TC; 71045-TC-FY; 72125-TC; 73010-TC-FY; 73030-TC-RT-FY; 73200-TC-RT; 80053; 82962; 83735; 84100; 84484; 85025; 85027; 85610; 86803; 86850; 86900; 86901; 99285-25; G0378